=== PATIENT | male | born 1970 | race Caucasian/White ===

== ENCOUNTER 2022-04-20 14:17 | Emergency (ER) | payer MEDICAID, SELFPAY ==
[2022-04-20 14:31] VITALS: BP 130/89; PULSE 87; RESP 20; TEMP 36.3; O2SAT 96; BMI 87.2
--- NOTE | 2022-04-20 15:05 | CRLHL7_ITS ---
For Patients: As a result of the Century Cures Act, medical imaging exams and procedure reports are released immediately into your electronic medical record. You may view this report before your referring provider. If you have questions, please contact your health care provider. INDICATION: Fall. TECHNIQUE: CT head without contrast. COMPARISON: None. FINDINGS: CSF spaces: Within normal limits for age. Brain parenchyma and extra-axial spaces: The perez-white differentiation is normal. No sign of mass, hemorrhage, or midline shift. No extra-axial fluid collection. Skull base and calvarium: The visualized paranasal sinuses and mastoid air cells demonstrate no acute or significant findings. The visualized orbits are grossly unremarkable. No skull fractures. IMPRESSION: Unremarkable noncontrast head CT. Please note that all CT scans at this facility use dose modulation, iterative reconstruction, and/or weight-based dosing when appropriate to reduce radiation dose to as low as reasonably achievable. Dictated by Tejinder Johnson MD @ 04/20/2022 4:37:55 PM (Electronically Signed)
[2022-04-20 15:24] LABS: Appearance Urine Clear (Clear); Bilirubin Urine Negative (Negative); Blood Urine Trace-intact (Negative); Color Urine Yellow (Yellow); Glucose Urine Negative (Negative); Ketones Urine Negative (Negative); Leukocyte Esterase Urine Negative (Negative); Nitrite Urine Negative (Negative); Protein Urine 1+ (Negative); Specific Gravity Urine >= 1.030 (1.000-1.030); Urobilinogen Urine 0.2 (0.2-1.0); pH Urine 6.5 (5.0-8.5)
--- NOTE | 2022-04-20 15:27 | ED.GENADULT ---
HPI - General Adult General Chief complaint: Altered Mental Status Stated complaint: Syncope/Confused Time Seen by Provider: 04/20/22 14:31 Source: patient Mode of arrival: ambulatory Limitations: no limitations History of Present Illness HPI narrative: 51-year-old male coming in today concerned about changes in his mentation. He states that last night he woke up in the middle of the night he thought he was in a hotel. He did know where he was or what he was doing. He states that he was so scared and confused he just went back to bed and closes eyes and woke up in the morning. His significant other tells me that he has tossed and turned all night and he got up a few times as well. This morning he was at work he was using a weed with per when all of a sudden he did know where he was, who he was or who was around him. He believes this episode lasted about 20-25 minutes but he is unsure. He denies any recent fevers chills nausea or vomiting. He denies any sick contacts. No recent traveling. He denies changes in his vision or hearing. He denies seeing or hearing things that are not there. He states that he has a mild headache which is not unusual for him. He is not feel nauseated. He has a normal appetite. He has felt fine since the episode this morning which was several hours ago. He denies chest pain or shortness of breath. 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 Patient's significant other is quite concerned about the episode this morning and is requesting a ?brain scan?. He also has history of GERD, takes Zantac as needed. Related Data Home Medications Medication Instructions Recorded Confirmed ranitidine HCl .ROUTE 04/20/22 Allergies Allergy/AdvReac Type Severity Reaction Status Date / Time No Known Drug Allergies Allergy Verified 04/20/22 14:36 Review of Systems Status of ROS: Reports: 10 or more systems reviewed and unremarkable except as noted in History and below [facility] Social History Smoking Status: Current some day smoker What tobacco products do you use: cigarettes Do you use any of these nicotine containing products: None Second hand tobacco smoke exposure: No How often do you have a drink containing alcohol: monthly or less How many standard drinks containing alcohol do you have on a typical day: 1 or 2 How often do you have six or more drinks on one occasion: Never AUDIT-C Alcohol total score: 1 Non-prescribed substance use: marijuana (any form) service: No Exam Narrative: Exam Narrative: Overweight, well-developed patient in no acute distress. Alert and oriented. Answers questions appropriately. Mood and affect are appropriate. Thoughts are goal oriented and rational. No tangential or magical thinking noted. Patient speaks in full sentences without needing to catch their breath. Speech is not slurred or pressured. HEENT: Normocephalic atraumatic. Pupils are equally round reactive to light. Extraocular muscles are intact. Conjunctivae are moist without any icterus noted. Moist mucous membranes. Posterior pharynx is normal. Neck is soft without any lymphadenopathy or thyromegaly. No masses are appreciated. Cardiovascular: Heart is regular rate and rhythm S1 and S2 are present without any murmurs. Lungs: Clear to auscultation bilaterally no wheezes rhonchi or rales are appreciated. Patient takes deep breaths without any discomfort. Abdomen: Soft and nontender nondistended but is protuberant with normal bowel sounds. No guarding or rebound. No masses or organomegaly appreciated. Extremities: Bilateral lower extremities are without edema. Normal DP and PT pulses. Skin: Well perfused without any obvious rashes. Strength is 5/5 of the upper and lower extremities. Reflexes are 2+ and symmetric at the knees. Cranial nerves 3-12 are normal. [id number] is normal. There is no nystagmus either horizontally or vertically. Gait is normal. Const: Vital Signs, click to edit/add: Vital Signs - 24 hr 04/20/22 14:31 Temperature 97.4 F L Pulse Rate [Pulse Oximeter] 87 Respiratory Rate 20 Blood Pressure [Le ft Upper Arm] 130/89 Pulse Oximetry 96 Oxygen Delivery Me thod Room Air Course Course Hospital Course: Differential diagnosis includes seizure, stroke, meningitis, infection, substance use disorder, electrolyte abnormality, carbon monoxide poisoning, depression. We will proceed with head CT, lab work. Care will be transferred to oncoming physician. Vital Signs Vital signs: Initial Vital Signs Temperature 97.4 F L 04/20/22 14:31 Temperature Source Temporal Artery Scan 04/20/22 14:31 Pulse Rate 87 04/20/22 14:31 Respiratory Rate 20 04/20/22 14:31 Blood Pressure 130/89 04/20/22 14:31 Blood Pressure Mean 102 04/20/22 14:31 Blood Pressure Position Supine 04/20/22 14:31 Pulse Oximetry 96 04/20/22 14:31 Oxygen Delivery Method 04/20/22 14:31 Vital Signs Temperature 97.4 F L 04/20/22 14:31 Pulse Rate 87 04/20/22 14:31 Respiratory Rate 20 04/20/22 14:31 Blood Pressure 130/89 04/20/22 14:31 Pulse Oximetry 96 04/20/22 14:31 Oxygen Delivery Method 04/20/22 14:31 Temperature 97.4 F L 04/20/22 14:31 Pulse Rate 81 04/20/22 16:30 Respiratory Rate 18 04/20/22 16:00 Blood Pressure 134/92 H 04/20/22 16:30 Pulse Oximetry 98 04/20/22 16:30 Oxygen Delivery Method 04/20/22 16:30 Medical Decision Making Lab Data Labs: Lab Results 04/20/22 04/20/22 04/20/22 Range/Units 15:04 15:04 15:04 WBC (4.50-11.00) K/uL RBC (4.30-5.90) m/uL Hgb (13.5-17.5) gm/dL Hct (37.0-53.0) % MCV (80-100) fL MCH (26-34) pg MCHC (32-36) gm/dL RDW Coeff of Emma (11.5-15.5) % Plt Count (140-440) K/uL Neut % (Auto) (42.0-72.0) % Lymph % (Auto) (20-44) % [place] % (Auto) (0.0-11.0) % Eos % (Auto) (0.0-7.0) % Baso % (Auto) (0.0-3.0) % Neut # (Auto) (1.7-7.0) K/uL Lymph # (Auto) (0.90-2.90) K/uL [place] # (Auto) (0.00-0.90) K/UL Eos # (Auto) (0.00-0.50) K/uL Baso # (Auto) (0.00-0.30) K/uL Abs Immat Gran (auto) (0.00-0.30) K/uL ESR (2-15) mm/hr VBG pH (7.32-7.43) VBG pCO2 (40-50) mmHG VBG pO2 (25-47) mmHG VBG HCO3 (21-28) mmol/L Sodium (135-149) mmol/L Potassium (3.6-5.1) mmol/L Chloride (96-114) mmol/L Carbon Dioxide (20-32) mmol/L BUN (5-24) mg/dL Creatinine (0.5-1.5) mg/dL Estimated Creat Clear Estimated GFR ml/min Glucose (60-115) mg/dL Lactate (0.5-1.9) mmol/L Calcium (8.4-10.6) mg/dL Total Bilirubin (0.1-1.5) mg/dL Direct Bilirubin (0.0-0.5) mg/dL AST (12-35) U/L ALT (4-50) U/L Alkaline Phosphatase (40-150) U/L Ammonia (13.1-30.0) umol/L Troponin I (0.01-0.04) ng/mL C-Reactive Protein (0.5-1.0) mg/dL Total Protein (6.0-8.3) g/dL Albumin (3.3-5.0) g/dL TSH (0.270-4.20) uIU/mL Urine Color Yellow (Yellow) Urine Appearance Clear (Clear) Urine pH 6.5 (5.0-8.5) Ur Specific [place] >= 1.030 (1.000-1.030) Urine Protein 1+ A (Negative) Urine Glucose (UA) Negative (Negative) Urine Ketones Negative (Negative) Urine Blood Trace-intact A (Negative) Urine Nitrite Negative (Negative) Urine Bilirubin Negative (Negative) Urine Urobilinogen 0.2 (0.2-1.0) Ur Leukocyte Esterase Negative (Negative) Urine RBC 0-2 (0-2) Urine WBC 0-2 (0-5) Ur Squamous Epith Cells None (None-Few) Urine Bacteria None (None) Salicylates (1.0-10) mg/dL Urine Opiates Screen Negative (Negative) Ur Oxycodone Screen Negative (Negative) Urine Methadone Screen Negative (Negative) Ur Propoxyphene Screen Negative (Negative) Acetaminophen (10.0-30.0) ug/mL Ur Barbiturates Screen Negative (Negative) U Tricyclic Antidepress Negative (Negative) Ur Phencyclidine Scrn Negative (Negative) Ur Amphetamines Screen Negative (Negative) U Methamphetamines Scrn Negative (Negative) U Benzodiazepines Scrn Negative (Negative) Urine Cocaine Screen Negative (Negative) U Marijuana (THC) Screen POSITIVE A* (Negative) Ur Drug Screen Comment See Note Ethyl Alcohol (0.01-0.03) % SARS-CoV-2 (PCR) Negative SARS-CoV-2 (Negative) Influenza Type A (PCR) Negative PCR FLU A (Negative) Influenza Type B (PCR) Negative PCR FLU B (Negative) 04/20/22 04/20/22 04/20/22 Range/Units 15:25 15:25 15:25 WBC 10.19 (4.50-11.00) K/uL RBC 4.80 (4.30-5.90) m/uL Hgb 14.1 (13.5-17.5) gm/dL Hct 41.0 (37.0-53.0) % MCV 85 (80-100) fL MCH 29 (26-34) pg MCHC 34 (32-36) gm/dL RDW Coeff of Emma 12.7 (11.5-15.5) % Plt Count 295 (140-440) K/uL Neut % (Auto) 62.5 (42.0-72.0) % Lymph % (Auto) 19.8 L (20-44) % [place] % (Auto) 9.6 (0.0-11.0) % Eos % (Auto) 6.6 (0.0-7.0) % Baso % (Auto) 0.4 (0.0-3.0) % Neut # (Auto) 6.37 (1.7-7.0) K/uL Lymph # (Auto) 2.00 (0.90-2.90) K/uL [place] # (Auto) 1.00 H (0.00-0.90) K/UL Eos # (Auto) 0.67 H (0.00-0.50) K/uL Baso # (Auto) 0.04 (0.00-0.30) K/uL Abs Immat Gran (auto) 0.11 (0.00-0.30) K/uL ESR 11 (2-15) mm/hr VBG pH (7.32-7.43) VBG pCO2 (40-50) mmHG VBG pO2 (25-47) mmHG VBG HCO3 (21-28) mmol/L Sodium 136 (135-149) mmol/L Potassium 3.9 (3.6-5.1) mmol/L Chloride 101 (96-114) mmol/L Carbon Dioxide 26 (20-32) mmol/L BUN 16 (5-24) mg/dL Creatinine 0.9 (0.5-1.5) mg/dL Estimated Creat Clear 96.06 Estimated GFR 105 ml/min Glucose 170 H (60-115) mg/dL Lactate (0.5-1.9) mmol/L Calcium 9.1 (8.4-10.6) mg/dL Total Bilirubin 0.1 (0.1-1.5) mg/dL Direct Bilirubin 0.1 (0.0-0.5) mg/dL AST 41 H (12-35) U/L ALT 45 (4-50) U/L Alkaline Phosphatase 125 (40-150) U/L Ammonia (13.1-30.0) umol/L Troponin I < 0.01 L (0.01-0.04) ng/mL C-Reactive Protein 0.6 (0.5-1.0) mg/dL Total Protein 7.1 (6.0-8.3) g/dL Albumin 4.2 (3.3-5.0) g/dL TSH (0.270-4.20) uIU/mL Urine Color (Yellow) Urine Appearance (Clear) Urine pH (5.0-8.5) Ur Specific [place] (1.000-1.030) Urine Protein (Negative) Urine Glucose (UA) (Negative) Urine Ketones (Negative) Urine Blood (Negative) Urine Nitrite (Negative) Urine Bilirubin (Negative) Urine Urobilinogen (0.2-1.0) Ur Leukocyte Esterase (Negative) Urine RBC (0-2) Urine WBC (0-5) Ur Squamous Epith Cells (None-Few) Urine Bacteria (None) Salicylates < 1.0 L (1.0-10) mg/dL Urine Opiates Screen (Negative) Ur Oxycodone Screen (Negative) Urine Methadone Screen (Negative) Ur Propoxyphene Screen (Negative) Acetaminophen < 10.0 L (10.0-30.0) ug/mL Ur Barbiturates Screen (Negative) U Tricyclic Antidepress (Negative) Ur Phencyclidine Scrn (Negative) Ur Amphetamines Screen (Negative) U Methamphetamines Scrn (Negative) U Benzodiazepines Scrn (Negative) Urine Cocaine Screen (Negative) U Marijuana (THC) Screen (Negative) Ur Drug Screen Comment Ethyl Alcohol < 0.01 L (0.01-0.03) % SARS-CoV-2 (PCR) (Negative) Influenza Type A (PCR) (Negative) Influenza Type B (PCR) (Negative) 04/20/22 04/20/22 04/20/22 Range/Units 15:25 15:25 15:25 WBC (4.50-11.00) K/uL RBC (4.30-5.90) m/uL Hgb (13.5-17.5) gm/dL Hct (37.0-53.0) % MCV (80-100) fL MCH (26-34) pg MCHC (32-36) gm/dL RDW Coeff of Emma (11.5-15.5) % Plt Count (140-440) K/uL Neut % (Auto) (42.0-72.0) % Lymph % (Auto) (20-44) % [place] % (Auto) (0.0-11.0) % Eos % (Auto) (0.0-7.0) % Baso % (Auto) (0.0-3.0) % Neut # (Auto) (1.7-7.0) K/uL Lymph # (Auto) (0.90-2.90) K/uL [place] # (Auto) (0.00-0.90) K/UL Eos # (Auto) (0.00-0.50) K/uL Baso # (Auto) (0.00-0.30) K/uL Abs Immat Gran (auto) (0.00-0.30) K/uL ESR (2-15) mm/hr VBG pH 7.44 H (7.32-7.43) VBG pCO2 47 (40-50) mmHG VBG pO2 42.3 (25-47) mmHG VBG HCO3 32 H (21-28) mmol/L Sodium (135-149) mmol/L Potassium (3.6-5.1) mmol/L Chloride (96-114) mmol/L Carbon Dioxide (20-32) mmol/L BUN (5-24) mg/dL Creatinine (0.5-1.5) mg/dL Estimated Creat Clear Estimated GFR ml/min Glucose (60-115) mg/dL Lactate 1.5 (0.5-1.9) mmol/L Calcium (8.4-10.6) mg/dL Total Bilirubin (0.1-1.5) mg/dL Direct Bilirubin (0.0-0.5) mg/dL AST (12-35) U/L ALT (4-50) U/L Alkaline Phosphatase (40-150) U/L Ammonia (13.1-30.0) umol/L Troponin I (0.01-0.04) ng/mL C-Reactive Protein (0.5-1.0) mg/dL Total Protein (6.0-8.3) g/dL Albumin (3.3-5.0) g/dL TSH 1.550 (0.270-4.20) uIU/mL Urine Color (Yellow) Urine Appearance (Clear) Urine pH (5.0-8.5) Ur Specific [place] (1.000-1.030) Urine Protein (Negative) Urine Glucose (UA) (Negative) Urine Ketones (Negative) Urine Blood (Negative) Urine Nitrite (Negative) Urine Bilirubin (Negative) Urine Urobilinogen (0.2-1.0) Ur Leukocyte Esterase (Negative) Urine RBC (0-2) Urine WBC (0-5) Ur Squamous Epith Cells (None-Few) Urine Bacteria (None) Salicylates (1.0-10) mg/dL Urine Opiates Screen (Negative) Ur Oxycodone Screen (Negative) Urine Methadone Screen (Negative) Ur Propoxyphene Screen (Negative) Acetaminophen (10.0-30.0) ug/mL Ur Barbiturates Screen (Negative) U Tricyclic Antidepress (Negative) Ur Phencyclidine Scrn (Negative) Ur Amphetamines Screen (Negative) U Methamphetamines Scrn (Negative) U Benzodiazepines Scrn (Negative) Urine Cocaine Screen (Negative) U Marijuana (THC) Screen (Negative) Ur Drug Screen Comment Ethyl Alcohol (0.01-0.03) % SARS-CoV-2 (PCR) (Negative) Influenza Type A (PCR) (Negative) Influenza Type B (PCR) (Negative) 04/20/22 Range/Units 15:25 WBC (4.50-11.00) K/uL RBC (4.30-5.90) m/uL Hgb (13.5-17.5) gm/dL Hct (37.0-53.0) % MCV (80-100) fL MCH (26-34) pg MCHC (32-36) gm/dL RDW Coeff of Emma (11.5-15.5) % Plt Count (140-440) K/uL Neut % (Auto) (42.0-72.0) % Lymph % (Auto) (20-44) % [place] % (Auto) (0.0-11.0) % Eos % (Auto) (0.0-7.0) % Baso % (Auto) (0.0-3.0) % Neut # (Auto) (1.7-7.0) K/uL Lymph # (Auto) (0.90-2.90) K/uL [place] # (Auto) (0.00-0.90) K/UL Eos # (Auto) (0.00-0.50) K/uL Baso # (Auto) (0.00-0.30) K/uL Abs Immat Gran (auto) (0.00-0.30) K/uL ESR (2-15) mm/hr VBG pH (7.32-7.43) VBG pCO2 (40-50) mmHG VBG pO2 (25-47) mmHG VBG HCO3 (21-28) mmol/L Sodium (135-149) mmol/L Potassium (3.6-5.1) mmol/L Chloride (96-114) mmol/L Carbon Dioxide (20-32) mmol/L BUN (5-24) mg/dL Creatinine (0.5-1.5) mg/dL Estimated Creat Clear Estimated GFR ml/min Glucose (60-115) mg/dL Lactate (0.5-1.9) mmol/L Calcium (8.4-10.6) mg/dL Total Bilirubin (0.1-1.5) mg/dL Direct Bilirubin (0.0-0.5) mg/dL AST (12-35) U/L ALT (4-50) U/L Alkaline Phosphatase (40-150) U/L Ammonia 27.0 (13.1-30.0) umol/L Troponin I (0.01-0.04) ng/mL C-Reactive Protein (0.5-1.0) mg/dL Total Protein (6.0-8.3) g/dL Albumin (3.3-5.0) g/dL TSH (0.270-4.20) uIU/mL Urine Color (Yellow) Urine Appearance (Clear) Urine pH (5.0-8.5) Ur Specific [place] (1.000-1.030) Urine Protein (Negative) Urine Glucose (UA) (Negative) Urine Ketones (Negative) Urine Blood (Negative) Urine Nitrite (Negative) Urine Bilirubin (Negative) Urine Urobilinogen (0.2-1.0) Ur Leukocyte Esterase (Negative) Urine RBC (0-2) Urine WBC (0-5) Ur Squamous Epith Cells (None-Few) Urine Bacteria (None) Salicylates (1.0-10) mg/dL Urine Opiates Screen (Negative) Ur Oxycodone Screen (Negative) Urine Methadone Screen (Negative) Ur Propoxyphene Screen (Negative) Acetaminophen (10.0-30.0) ug/mL Ur Barbiturates Screen (Negative) U Tricyclic Antidepress (Negative) Ur Phencyclidine Scrn (Negative) Ur Amphetamines Screen (Negative) U Methamphetamines Scrn (Negative) U Benzodiazepines Scrn (Negative) Urine Cocaine Screen (Negative) U Marijuana (THC) Screen (Negative) Ur Drug Screen Comment Ethyl Alcohol (0.01-0.03) % SARS-CoV-2 (PCR) (Negative) Influenza Type A (PCR) (Negative) Influenza Type B (PCR) (Negative) ECG Data Attestation: I personally reviewed and interpreted this ECG as follows: (Normal sinus rhythm, heart rate 83) Discharge Plan Discharge Clinical Impression: Altered mental status Patient Disposition: Home, Self-Care Condition: Stable Instructions: Acute Delirium (ED) Additional Instructions: Follow-up with primary care to discuss neurology referal Monitor for additional symptoms. Activity Level: No Restrictions Discharge Diet: Regular Prescriptions: No Action ranitidine HCl [Zantac] .ROUTE Follow Up/Referrals: Provider,Not a Local [Primary Care Provider] - Stand Alone Forms: [employer] Info Instructions
[2022-04-20 15:30] VITALS: BP 133/56; PULSE 83; RESP 16; RESP 18; O2SAT 99
[2022-04-20 15:30] LABS: Amphetamine Screen Urine Negative (Negative); Barbiturate Screen Urine Negative (Negative); Benzodiazepines Screen Urine Negative (Negative); Cocaine Screen Urine Negative (Negative); Methadone Screen Urine Negative (Negative); Methamphetamines Screen Urine Negative (Negative); Opiate Screen Urine Negative (Negative); Oxycodone Screen Urine Negative (Negative); Phencyclidine Screen Urine Negative (Negative); Tricyclic Antidepressant Urine Negative (Negative)
[2022-04-20 15:41] LABS: Basophils Absolute Auto 0.04 K/uL (0.00-0.30); Basophils Percent Auto 0.4 % (0.0-3.0); Eosinophils Absolute Auto 0.67 K/uL (0.00-0.50); Eosinophils Percent Auto 6.6 % (0.0-7.0); Hemoglobin* 14.1 gm/dL (13.5-17.5); Immature Granulocytes Abs Auto 0.11 K/uL (0.00-0.30); Lymphocytes Percent Auto 19.8 % (20-44); Mean Corpuscular HGB Conc 34 gm/dL (32-36); Mean Corpuscular Hemoglobin 29 pg (26-34); Mean Corpuscular Volume 85 fL (80-100); Monocytes Percent Auto 9.6 % (0.0-11.0); Neutrophils Absolute Auto 6.37 K/uL (1.7-7.0); Neutrophils Percent Auto 62.5 % (42.0-72.0); Platelet Count* 295 K/uL (140-440); RDW Coefficient of Variation % 12.7 % (11.5-15.5); White Blood Count* 10.19 K/uL (4.50-11.00)
[2022-04-20 15:42] LABS: Slide Review Reflex No
[2022-04-20 15:45] LABS: Lactate* 1.5 mmol/L (0.5-1.9); PCO2 VBG 47 mmHG (40-50); PO2 VBG 42.3 mmHG (25-47); pH VBG 7.44 (7.32-7.43)
[2022-04-20 15:46] LABS: HCO3 VBG 32 mmol/L (21-28)
[2022-04-20 15:50] LABS: RBC Urine 0-2 (0-2); WBC Urine 0-2 (0-5)
[2022-04-20 16:00] VITALS: BP 139/88; PULSE 84; RESP 18; O2SAT 100
[2022-04-20 16:03] LABS: PCR FLU A Negative PCR FLU A (Negative); PCR FLU B Negative PCR FLU B (Negative)
[2022-04-20 16:06] LABS: Cannabinoid Screen Urine POSITIVE (Negative); SARS PCR* Negative SARS-CoV-2 (Negative)
[2022-04-20 16:11] LABS: Albumin* 4.2 g/dL (3.3-5.0); Chloride* 101 mmol/L (96-114); Sodium* 136 mmol/L (135-149)
[2022-04-20 16:13] LABS: Potassium* 3.9 mmol/L (3.6-5.1)
[2022-04-20 16:15] LABS: Alanine Aminotransferase* 45 U/L (4-50); Alkaline Phosphatase* 125 U/L (40-150); Aspartate Amino Transferase* 41 U/L (12-35); Bilirubin Direct* 0.1 mg/dL (0.0-0.5); Bilirubin Total* 0.1 mg/dL (0.1-1.5); Blood Urea Nitrogen* 16 mg/dL (5-24); Calcium* 9.1 mg/dL (8.4-10.6); Carbon Dioxide* 26 mmol/L (20-32); Creatinine* 0.9 mg/dL (0.5-1.5); Est. Creatinine Clearance* 96.06; Estimated Glomerular Filt Rate 105 ml/min; Glucose* 170 mg/dL (60-115); Total Protein* 7.1 g/dL (6.0-8.3)
[2022-04-20 16:17] LABS: Acetaminophen* < 10.0 ug/mL (10.0-30.0); Ethanol* < 0.01 % (0.01-0.03); Salicylate* < 1.0 mg/dL (1.0-10)
[2022-04-20 16:18] LABS: C Reactive Protein* 0.6 mg/dL (0.5-1.0)
[2022-04-20 16:30] VITALS: BP 134/92; PULSE 81; O2SAT 98
[2022-04-20 16:33] LABS: Troponin I* < 0.01 ng/mL (0.01-0.04)
--- NOTE | 2022-04-20 16:51 | ED.AMS ---
HPI - Altered Mental Status General Chief Complaint: Altered Mental Status Stated Complaint: Syncope/Confused Time Seen by Provider: 04/20/22 14:31 Source: patient Mode of arrival: ambulatory Limitations: no limitations History of Present Illness HPI narrative: Patient is a year old gentleman who works in [employer] He had episode earlier today of about 20 minutes of acute delirium. He did not know who or where he was. He had no focal defects. He had no fevers no chills no stiff neck. He has had no other major complaints and has made a full recovery. He states that this is not happen to him in the past. He was brought into the emergency room immediately his girlfriend. Related Data Home Medications Medication Instructions Recorded Confirmed ranitidine HCl .ROUTE 04/20/22 Allergies Allergy/AdvReac Type Severity Reaction Status Date / Time No Known Drug Allergies Allergy Verified 04/20/22 14:36 Review of Systems Status of ROS: Reports: 10 or more systems reviewed and unremarkable except as noted in History and below PFSH PFS Social History Smoking Status: Current some day smoker What tobacco products do you use: cigarettes Do you use any of these nicotine containing products: None Second hand tobacco smoke exposure: No How often do you have a drink containing alcohol: monthly or less How many standard drinks containing alcohol do you have on a typical day: 1 or 2 How often do you have six or more drinks on one occasion: Never AUDIT-C Alcohol total score: 1 Non-prescribed substance use: marijuana (any form) service: No Exam Narrative: Exam Narrative: EXAM GENERAL: Patient appears comfortable and well. EYES: No scleral icterus. ENT: Tympanic membranes and oropharynx normal. THYROID: no thyroid nodules or thyromegaly. LYMPH: No supraclavicular or cervical lymphadenopathy. SKIN: Visible skin seen during exam normal or with benign process only. EXT: No dependent lower extremity pedal edema. HEART: Regular rate and rhythm with no murmurs, rubs, or gallops. LUNGS: Clear to auscultation bilaterally with no crackles or wheezes. ABD: Soft, non tender, non distended. PSYCH: Good eye contact, speech is not pressured. Const: Vital Signs, click to edit/add: Vital Signs - 24 hr 04/20/22 14:31 04/20/22 15:30 Temperature 97.4 F L Pulse Rate [Pulse Oximeter] 87 83 Respiratory Rate 20 16 Blood Pressure [Le ft Upper Arm] 130/89 133/56 L Pulse Oximetry 96 99 Oxygen Delivery Me thod Room Air Room Air Course Course Hospital Course: Differential diagnosis includes seizure, stroke, meningitis, infection, substance use disorder, electrolyte abnormality, carbon monoxide poisoning, depression. We will proceed with head CT, lab work. Care will be transferred to oncoming physician. Vital Signs Vital signs: Initial Vital Signs Temperature 97.4 F L 04/20/22 14:31 Temperature Source Temporal Artery Scan 04/20/22 14:31 Pulse Rate 87 04/20/22 14:31 Respiratory Rate 20 04/20/22 14:31 Blood Pressure 130/89 04/20/22 14:31 Blood Pressure Mean 102 04/20/22 14:31 Blood Pressure Position Supine 04/20/22 14:31 Pulse Oximetry 96 04/20/22 14:31 Oxygen Delivery Method 04/20/22 14:31 Vital Signs Temperature 97.4 F L 04/20/22 14:31 Pulse Rate 87 04/20/22 14:31 Respiratory Rate 20 04/20/22 14:31 Blood Pressure 130/89 04/20/22 14:31 Pulse Oximetry 96 04/20/22 14:31 Oxygen Delivery Method 04/20/22 14:31 Temperature 97.4 F L 04/20/22 14:31 Pulse Rate 83 04/20/22 15:30 Respiratory Rate 16 04/20/22 15:30 Blood Pressure 133/56 L 04/20/22 15:30 Pulse Oximetry 99 04/20/22 15:30 Oxygen Delivery Method 04/20/22 15:30 MDM - Altered Mental Status MDM Narrative Medical decision making narrative: Review of laboratory studies is largely unremarkable with the exception of small amount of cannabis. He states he uses cannabis regularly at a low dose. The remainder of CBC metabolic panel and electrolytes are all normal. CT of the head is unremarkable. Patient has made a full recovery. He would like to go home. Differential would include encephalitis, toxic exposure, heat stroke and TIA. Lab Data Labs: Lab Results 04/20/22 04/20/22 04/20/22 Range/Units 15:04 15:04 15:04 WBC (4.50-11.00) K/uL RBC (4.30-5.90) m/uL Hgb (13.5-17.5) gm/dL Hct (37.0-53.0) % MCV (80-100) fL MCH (26-34) pg MCHC (32-36) gm/dL RDW Coeff of Emma (11.5-15.5) % Plt Count (140-440) K/uL Neut % (Auto) (42.0-72.0) % Lymph % (Auto) (20-44) % [place] % (Auto) (0.0-11.0) % Eos % (Auto) (0.0-7.0) % Baso % (Auto) (0.0-3.0) % Neut # (Auto) (1.7-7.0) K/uL Lymph # (Auto) (0.90-2.90) K/uL [place] # (Auto) (0.00-0.90) K/UL Eos # (Auto) (0.00-0.50) K/uL Baso # (Auto) (0.00-0.30) K/uL Abs Immat Gran (auto) (0.00-0.30) K/uL VBG pH (7.32-7.43) VBG pCO2 (40-50) mmHG VBG pO2 (25-47) mmHG VBG HCO3 (21-28) mmol/L Sodium (135-149) mmol/L Potassium (3.6-5.1) mmol/L Chloride (96-114) mmol/L Carbon Dioxide (20-32) mmol/L BUN (5-24) mg/dL Creatinine (0.5-1.5) mg/dL Estimated Creat Clear Estimated GFR ml/min Glucose (60-115) mg/dL Lactate (0.5-1.9) mmol/L Calcium (8.4-10.6) mg/dL Total Bilirubin (0.1-1.5) mg/dL Direct Bilirubin (0.0-0.5) mg/dL AST (12-35) U/L ALT (4-50) U/L Alkaline Phosphatase (40-150) U/L Ammonia (13.1-30.0) umol/L Troponin I (0.01-0.04) ng/mL C-Reactive Protein (0.5-1.0) mg/dL Total Protein (6.0-8.3) g/dL Albumin (3.3-5.0) g/dL Urine Color Yellow (Yellow) Urine Appearance Clear (Clear) Urine pH 6.5 (5.0-8.5) Ur Specific [place] >= 1.030 (1.000-1.030) Urine Protein 1+ A (Negative) Urine Glucose (UA) Negative (Negative) Urine Ketones Negative (Negative) Urine Blood Trace-intact A (Negative) Urine Nitrite Negative (Negative) Urine Bilirubin Negative (Negative) Urine Urobilinogen 0.2 (0.2-1.0) Ur Leukocyte Esterase Negative (Negative) Urine RBC 0-2 (0-2) Urine WBC 0-2 (0-5) Ur Squamous Epith Cells None (None-Few) Urine Bacteria None (None) Salicylates (1.0-10) mg/dL Urine Opiates Screen Negative (Negative) Ur Oxycodone Screen Negative (Negative) Urine Methadone Screen Negative (Negative) Ur Propoxyphene Screen Negative (Negative) Acetaminophen (10.0-30.0) ug/mL Ur Barbiturates Screen Negative (Negative) U Tricyclic Antidepress Negative (Negative) Ur Phencyclidine Scrn Negative (Negative) Ur Amphetamines Screen Negative (Negative) U Methamphetamines Scrn Negative (Negative) U Benzodiazepines Scrn Negative (Negative) Urine Cocaine Screen Negative (Negative) U Marijuana (THC) Screen POSITIVE A* (Negative) Ur Drug Screen Comment See Note Ethyl Alcohol (0.01-0.03) % SARS-CoV-2 (PCR) Negative SARS-CoV-2 (Negative) Influenza Type A (PCR) Negative PCR FLU A (Negative) Influenza Type B (PCR) Negative PCR FLU B (Negative) 04/20/22 04/20/22 04/20/22 Range/Units 15:25 15:25 15:25 WBC 10.19 (4.50-11.00) K/uL RBC 4.80 (4.30-5.90) m/uL Hgb 14.1 (13.5-17.5) gm/dL Hct 41.0 (37.0-53.0) % MCV 85 (80-100) fL MCH 29 (26-34) pg MCHC 34 (32-36) gm/dL RDW Coeff of Emma 12.7 (11.5-15.5) % Plt Count 295 (140-440) K/uL Neut % (Auto) 62.5 (42.0-72.0) % Lymph % (Auto) 19.8 L (20-44) % [place] % (Auto) 9.6 (0.0-11.0) % Eos % (Auto) 6.6 (0.0-7.0) % Baso % (Auto) 0.4 (0.0-3.0) % Neut # (Auto) 6.37 (1.7-7.0) K/uL Lymph # (Auto) 2.00 (0.90-2.90) K/uL [place] # (Auto) 1.00 H (0.00-0.90) K/UL Eos # (Auto) 0.67 H (0.00-0.50) K/uL Baso # (Auto) 0.04 (0.00-0.30) K/uL Abs Immat Gran (auto) 0.11 (0.00-0.30) K/uL VBG pH (7.32-7.43) VBG pCO2 (40-50) mmHG VBG pO2 (25-47) mmHG VBG HCO3 (21-28) mmol/L Sodium 136 (135-149) mmol/L Potassium 3.9 (3.6-5.1) mmol/L Chloride 101 (96-114) mmol/L Carbon Dioxide 26 (20-32) mmol/L BUN 16 (5-24) mg/dL Creatinine 0.9 (0.5-1.5) mg/dL Estimated Creat Clear 96.06 Estimated GFR 105 ml/min Glucose 170 H (60-115) mg/dL Lactate 1.5 (0.5-1.9) mmol/L Calcium 9.1 (8.4-10.6) mg/dL Total Bilirubin 0.1 (0.1-1.5) mg/dL Direct Bilirubin 0.1 (0.0-0.5) mg/dL AST 41 H (12-35) U/L ALT 45 (4-50) U/L Alkaline Phosphatase 125 (40-150) U/L Ammonia (13.1-30.0) umol/L Troponin I < 0.01 L (0.01-0.04) ng/mL C-Reactive Protein 0.6 (0.5-1.0) mg/dL Total Protein 7.1 (6.0-8.3) g/dL Albumin 4.2 (3.3-5.0) g/dL Urine Color (Yellow) Urine Appearance (Clear) Urine pH (5.0-8.5) Ur Specific [place] (1.000-1.030) Urine Protein (Negative) Urine Glucose (UA) (Negative) Urine Ketones (Negative) Urine Blood (Negative) Urine Nitrite (Negative) Urine Bilirubin (Negative) Urine Urobilinogen (0.2-1.0) Ur Leukocyte Esterase (Negative) Urine RBC (0-2) Urine WBC (0-5) Ur Squamous Epith Cells (None-Few) Urine Bacteria (None) Salicylates < 1.0 L (1.0-10) mg/dL Urine Opiates Screen (Negative) Ur Oxycodone Screen (Negative) Urine Methadone Screen (Negative) Ur Propoxyphene Screen (Negative) Acetaminophen < 10.0 L (10.0-30.0) ug/mL Ur Barbiturates Screen (Negative) U Tricyclic Antidepress (Negative) Ur Phencyclidine Scrn (Negative) Ur Amphetamines Screen (Negative) U Methamphetamines Scrn (Negative) U Benzodiazepines Scrn (Negative) Urine Cocaine Screen (Negative) U Marijuana (THC) Screen (Negative) Ur Drug Screen Comment Ethyl Alcohol < 0.01 L (0.01-0.03) % SARS-CoV-2 (PCR) (Negative) Influenza Type A (PCR) (Negative) Influenza Type B (PCR) (Negative) 04/20/22 04/20/22 Range/Units 15:25 15:25 WBC (4.50-11.00) K/uL RBC (4.30-5.90) m/uL Hgb (13.5-17.5) gm/dL Hct (37.0-53.0) % MCV (80-100) fL MCH (26-34) pg MCHC (32-36) gm/dL RDW Coeff of Emma (11.5-15.5) % Plt Count (140-440) K/uL Neut % (Auto) (42.0-72.0) % Lymph % (Auto) (20-44) % [place] % (Auto) (0.0-11.0) % Eos % (Auto) (0.0-7.0) % Baso % (Auto) (0.0-3.0) % Neut # (Auto) (1.7-7.0) K/uL Lymph # (Auto) (0.90-2.90) K/uL [place] # (Auto) (0.00-0.90) K/UL Eos # (Auto) (0.00-0.50) K/uL Baso # (Auto) (0.00-0.30) K/uL Abs Immat Gran (auto) (0.00-0.30) K/uL VBG pH 7.44 H (7.32-7.43) VBG pCO2 47 (40-50) mmHG VBG pO2 42.3 (25-47) mmHG VBG HCO3 32 H (21-28) mmol/L Sodium (135-149) mmol/L Potassium (3.6-5.1) mmol/L Chloride (96-114) mmol/L Carbon Dioxide (20-32) mmol/L BUN (5-24) mg/dL Creatinine (0.5-1.5) mg/dL Estimated Creat Clear Estimated GFR ml/min Glucose (60-115) mg/dL Lactate (0.5-1.9) mmol/L Calcium (8.4-10.6) mg/dL Total Bilirubin (0.1-1.5) mg/dL Direct Bilirubin (0.0-0.5) mg/dL AST (12-35) U/L ALT (4-50) U/L Alkaline Phosphatase (40-150) U/L Ammonia 27.0 (13.1-30.0) umol/L Troponin I (0.01-0.04) ng/mL C-Reactive Protein (0.5-1.0) mg/dL Total Protein (6.0-8.3) g/dL Albumin (3.3-5.0) g/dL Urine Color (Yellow) Urine Appearance (Clear) Urine pH (5.0-8.5) Ur Specific [place] (1.000-1.030) Urine Protein (Negative) Urine Glucose (UA) (Negative) Urine Ketones (Negative) Urine Blood (Negative) Urine Nitrite (Negative) Urine Bilirubin (Negative) Urine Urobilinogen (0.2-1.0) Ur Leukocyte Esterase (Negative) Urine RBC (0-2) Urine WBC (0-5) Ur Squamous Epith Cells (None-Few) Urine Bacteria (None) Salicylates (1.0-10) mg/dL Urine Opiates Screen (Negative) Ur Oxycodone Screen (Negative) Urine Methadone Screen (Negative) Ur Propoxyphene Screen (Negative) Acetaminophen (10.0-30.0) ug/mL Ur Barbiturates Screen (Negative) U Tricyclic Antidepress (Negative) Ur Phencyclidine Scrn (Negative) Ur Amphetamines Screen (Negative) U Methamphetamines Scrn (Negative) U Benzodiazepines Scrn (Negative) Urine Cocaine Screen (Negative) U Marijuana (THC) Screen (Negative) Ur Drug Screen Comment Ethyl Alcohol (0.01-0.03) % SARS-CoV-2 (PCR) (Negative) Influenza Type A (PCR) (Negative) Influenza Type B (PCR) (Negative) Discharge Plan Discharge Clinical Impression: Altered mental status Patient Disposition: Home, Self-Care Condition: Stable Instructions: Acute Delirium (ED) Additional Instructions: Follow-up with primary care to discuss neurology referal Monitor for additional symptoms. Activity Level: No Restrictions Discharge Diet: Regular Prescriptions: No Action ranitidine HCl [Zantac] .ROUTE Follow Up/Referrals: Provider,Not a Local [Primary Care Provider] - Stand Alone Forms: [facility] Medical Info Instructions
[2022-04-20 16:53] LABS: Erythrocyte SedimentationRate* 11 mm/hr (2-15)
== END 2022-04-20 17:05 | disposition home or self-care (01) ==
PROVIDERS: Family Medicine; Emergency Provider Internal Medicine
DX: R41.82 Altered mental status, unspecified (principal)
CPT/HCPCS: 36415; 70450; 80048; 80076; 80143; 80179; 80306; 81001; 82077; 82140; 82803; 83605; 84443; 84484; 85025; 85651; 86140; 87086; 87502; 87635; 93005; 99283; 99284; 99285

== ENCOUNTER 2022-04-28 12:54 | Emergency (ER) | payer MEDICAID, SELFPAY ==
[2022-04-28 13:22] VITALS: BP 134/82; PULSE 82; RESP 18; TEMP 36.8; O2SAT 96; BMI 35.0
--- NOTE | 2022-04-28 16:50 | ED_ITS ---
HPI - General Adult General Date Seen: 04/28/22 Chief complaint: Laceration/Wound Stated complaint: Lac bottom left foot Time Seen by Provider: 04/28/22 12:59 Source: patient History of Present Illness HPI narrative: Patient is a 51-year-old male who presents with 2 weeks of worsening pain, itching and redness of his feet. He has a crack type laceration on the bottom of his left foot. He works in [employer]. Today he was not able to work because the pain was too severe. He has not taken anything for pain. He has not had any swelling or fevers. He does not have diabetes. [facility] has a [facility] but says it is very hard to get in to see her. He denies any medical problems that he knows of. He does not smoke or drink. Related Data Home Medications Medication Instructions Recorded Confirmed ranitidine HCl .ROUTE 04/20/22 Previous Rx's Medication Instructions Recorded fluconazole 150 mg tablet 150 mg PO QWEEK #3 tabs 04/28/22 (Diflucan) Allergies Allergy/AdvReac Type Severity Reaction Status Date / Time No Known Drug Allergies Allergy Verified 04/20/22 14:36 Review of Systems Narrative: Review of systems otherwise noncontributory [facility] Social History Smoking Status: Current some day smoker What tobacco products do you use: cigarettes Do you use any of these nicotine containing products: None Second hand tobacco smoke exposure: No How often do you have a drink containing alcohol: monthly or less How many standard drinks containing alcohol do you have on a typical day: 1 or 2 How often do you have six or more drinks on one occasion: Never AUDIT-C Alcohol total score: 1 Non-prescribed substance use: marijuana (any form) service: No Exam Narrative: Exam Narrative: Vital signs reviewed In general, an alert, nontoxic male. Head: Normocephalic, atraumatic. ENT: Mucous membranes are moist. Musculoskeletal: Examination of bilateral feet shows erythema and scaly skin on bilateral plantar surfaces in between his toes. He has onchomycosis noted particularly of the left great toenail. On the plantar surface of his left foot near the MTP joint, he has a crack in the surface of the skin. There is no evidence of infection here. He has tenderness in this area. He has generally areas of callus noted. Pulses are intact. Skin is well perfused. Skin: Warm dry otherwise well perfused. Capillary refill is brisk. Const: Vital Signs, click to edit/add: Vital Signs - 24 hr 04/28/22 13:22 Temperature 98.2 F Pulse Rate [Right Pulse Oximeter] 82 Respiratory Rate 18 Blood Pressure [Ri ght Upper Arm] 134/82 Pulse Oximetry 96 Oxygen Delivery Me thod Room Air Documenting provider has reviewed patient's vital signs: yes Course Course Hospital Course: Overall, I think he has extensive tinea pedis and a crack in an area of callus on the left foot better contributing to his symptoms. I do not think this likely represents neuropathy given the skin changes I see. He does not have any evidence of vasculopathy on exam today. I have recommended that we treat him with a few weeks of Diflucan weekly. We dressed the wound on the bottom of his left foot. I gave him a note for work today but he says he will need to go back to work tomorrow for financial reasons. I have recommended that he follow-up with Dr. Douglas in Podiatry to ensure that this is all healing well. Return for any signs of worsening infection, particularly of the wound in his left foot . Dressing changes b.i.d. to that area until healed. Vital Signs Vital signs: Initial Vital Signs Temperature 98.2 F 04/28/22 13:22 Temperature Source Temporal Artery Scan 04/28/22 13:22 Pulse Rate 82 04/28/22 13:22 Respiratory Rate 18 04/28/22 13:22 Blood Pressure 134/82 04/28/22 13:22 Blood Pressure Mean 99 04/28/22 13:22 Blood Pressure Position Sitting 04/28/22 13:22 Pulse Oximetry 96 04/28/22 13:22 Oxygen Delivery Method 04/28/22 13:22 Vital Signs Temperature 98.2 F 04/28/22 13:22 Pulse Rate 82 04/28/22 13:22 Respiratory Rate 18 04/28/22 13:22 Blood Pressure 134/82 04/28/22 13:22 Pulse Oximetry 96 04/28/22 13:22 Oxygen Delivery Method 04/28/22 13:22 Temperature 98.2 F 04/28/22 13:22 Pulse Rate 82 04/28/22 13:22 Respiratory Rate 18 04/28/22 13:22 Blood Pressure 134/82 04/28/22 13:22 Pulse Oximetry 96 04/28/22 13:22 Oxygen Delivery Method 04/28/22 13:22 Discharge Plan Discharge Clinical Impression: Tinea pedis Patient Disposition: Home, Self-Care Condition: Stable Instructions: Athlete's Foot (ED) Additional Instructions: Take Diflucan once weekly for 3 weeks as prescribed. Change the dressing on the crack in your left foot twice a day as discussed. This may take a couple of weeks to heal. Ibuprofen as needed for pain. Recommend podiatry follow-up, this can be done through the [facility], Dr. Douglas. [phone]. Prescriptions: New fluconazole [Diflucan] 150 mg tablet 150 mg PO QWEEK Qty: 3 0RF No Action ranitidine HCl [Zantac] .ROUTE Follow Up/Referrals: Provider,Not a Local [Primary Care Provider] - Stand Alone Forms: [facility] Info Instructions
== END 2022-04-28 14:28 | disposition home or self-care (01) ==
LOC: ED 14:04
PROVIDERS: Emergency Provider Emergency Medicine
DX: B35.3 Tinea pedis (principal)
CPT/HCPCS: 99283; 99284

== ENCOUNTER 2022-06-21 07:49 | Emergency (ER) | payer MEDICAID, SELFPAY ==
[2022-06-21] VITALS (12 sets, daily range): BP systolic 114–128; BP diastolic 62–80; PULSE 79–91; RESP 18; TEMP 36.8; O2SAT 95–98; BMI 31.8
--- NOTE | 2022-06-21 09:04 | CRLHL7_ITS ---
For Patients: As a result of the 21st Century Cures Act, medical imaging exams and procedure reports are released immediately into your electronic medical record. You may view this report before your referring provider. If you have questions, please contact your health care provider. Indication: Abdominal pain, severe Technique: Contrast enhanced CT of the abdomen and pelvis, Omnipaque 350, 100 cc IV Please note that all CT scans at this facility use dose modulation, iterative reconstruction, and/or weight-based dosing when appropriate to reduce radiation dose to as low as reasonably achievable. Comparison: None Findings: Unremarkable inferior thorax. Normal liver size and contour. Hepatic steatosis. No suspicious hepatic lesions. Hepatic veins and portal veins appear patent. Status post cholecystectomy. No biliary dilatation. No significant abnormality of the adrenal glands, kidneys, spleen, pancreas, stomach or duodenum. Normal course and caliber of the abdominal aorta and the IVC. Aortic side branches and renal veins appear patent. No lymphadenopathy. No bladder wall thickening. Suggestion of soft tissue within the bladder (series 5 image 72) located just posterior to the median lobe of the prostate (series 4 image 64; series 2, image 135). Prostatic calcifications. No bowel obstruction or bowel wall thickening. Normal appendix. No significant free fluid. No aggressive osseous lesion. Impression: 1. No acute etiology identified for patient`s abdominal pain. 2. Abnormal soft tissue in the bladder which appears to be separate and posterior to the median lobe of the prostate. Recommend direct visualization to exclude malignancy. Please note that all CT scans at this facility use dose modulation, iterative reconstruction, and/or weight-based dosing when appropriate to reduce radiation dose to as low as reasonably achievable. Dictated by Wilder Sky MD @ 06/21/2022 10:03:45 AM (Electronically Signed)
--- NOTE | 2022-06-21 09:08 | CRLHL7_ITS ---
For Patients: As a result of the Century Cures Act, medical imaging exams and procedure reports are released immediately into your electronic medical record. You may view this report before your referring provider. If you have questions, please contact your health care provider. INDICATION: Pain, recurrent swelling. COMPARISON: None. TECHNIQUE: three-view radiograph of the right knee. FINDINGS: Large joint effusion. Normal alignment. Joint spaces preserved. No definite fracture. IMPRESSION: Large joint effusion without definite underlying fracture. Dictated by Wilder Sky MD @ 06/21/2022 9:55:14 AM (Electronically Signed)
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
[2022-06-21 09:22] LABS: Appearance Urine Clear (Clear); Bilirubin Urine Negative (Negative); Blood Urine Trace-intact (Negative); Color Urine Yellow (Yellow); Glucose Urine Negative (Negative); Ketones Urine Negative (Negative); Leukocyte Esterase Urine Negative (Negative); Nitrite Urine Negative (Negative); Protein Urine 2+ (Negative); Specific Gravity Urine >= 1.030 (1.000-1.030); Urobilinogen Urine 0.2 (0.2-1.0); pH Urine 5.5 (5.0-8.5)
[2022-06-21 09:42] LABS: Bacteria Urine Few; RBC Urine 0-2 (0-2); Squamous Epithelial Cell Urine Few (None-Few); WBC Urine 0-2 (0-5)
[2022-06-21] MEDS: KETOROLAC 30 MG/ML inj IVP (09:47)
[2022-06-21] MEDS: 0.9 % SODIUM CHLORIDE 1000 ml 1,000 ML IV (09:47)
[2022-06-21 09:49] LABS: Albumin* 4.5 g/dL (3.3-5.0); Chloride* 103 mmol/L (96-114)
[2022-06-21 09:50] LABS: Potassium* 4.3 mmol/L (3.6-5.1); Sodium* 136 mmol/L (135-149)
[2022-06-21 09:52] LABS: Est. Creatinine Clearance* 86.45; Estimated Glomerular Filt Rate 92 ml/min
[2022-06-21 09:53] LABS: Alanine Aminotransferase* 44 U/L (4-50); Alkaline Phosphatase* 138 U/L (40-150); Aspartate Amino Transferase* 32 U/L (12-35); Bilirubin Direct* 0.1 mg/dL (0.0-0.5); Bilirubin Total* 0.4 mg/dL (0.1-1.5); Blood Urea Nitrogen* 15 mg/dL (5-24); Carbon Dioxide* 24 mmol/L (20-32); Glucose* 198 mg/dL (60-115); Lipase* 207 U/L (23-300); Partial Thromboplastin Time* 26 Seconds (23-33); Total Protein* 7.2 g/dL (6.0-8.3)
[2022-06-21 09:54] LABS: Basophils Absolute Auto 0.04 K/uL (0.00-0.30); Basophils Percent Auto 0.5 % (0.0-3.0); Eosinophils Percent Auto 8.1 % (0.0-7.0); Hematocrit 40.3 % (37.0-53.0); Hemoglobin* 13.7 gm/dL (13.5-17.5); Immature Granulocytes Abs Auto 0.05 K/uL (0.00-0.30); Lymphocytes Absolute Auto 1.82 K/uL (0.90-2.90); Lymphocytes Percent Auto 21.4 % (20-44); Mean Corpuscular HGB Conc 34 gm/dL (32-36); Mean Corpuscular Hemoglobin 29 pg (26-34); Mean Corpuscular Volume 86 fL (80-100); Monocytes Percent Auto 8.2 % (0.0-11.0); Neutrophils Absolute Auto 5.22 K/uL (1.7-7.0); Neutrophils Percent Auto 61.2 % (42.0-72.0); Platelet Count* 302 K/uL (140-440); RDW Coefficient of Variation % 12.5 % (11.5-15.5); Red Blood Count 4.67 m/uL (4.30-5.90); White Blood Count* 8.52 K/uL (4.50-11.00)
[2022-06-21 09:56] LABS: C Reactive Protein* 1.3 mg/dL (0.5-1.0)
[2022-06-21 10:00] LABS: Ethanol* < 0.01 % (0.01-0.03); Salicylate* < 1.0 mg/dL (1.0-10); Slide Review Reflex No
[2022-06-21] MEDS: ONDANSETRON 2 MG/ML inj 4 MG IVP (10:20)
--- NOTE | 2022-06-21 12:20 | ED.NURSE ---
22 knee immobilizer applied to pt R knee. Pt instructed on application of immobilizer. Pt removed immobilizer for now, states he will apply immobilizer at home.
[2022-06-21 12:51] LABS: Magnesium* 2.1 mg/dL (1.5-2.6)
== END 2022-06-21 12:46 | disposition home or self-care (01) ==
PROVIDERS: Emergency Provider Family Medicine
DX: R10.9 Unspecified abdominal pain (principal); M25.561 Pain in right knee; M25.461 Effusion, right knee; R19.09 Other intra-abdominal and pelvic swelling, mass and lump
CPT/HCPCS: 36415; 73562; 74177; 80048; 80076; 80179; 81001; 82077; 83690; 83735; 84439; 84481; 85025; 85730; 86140; 87086; 94761; 96374; 96375; 99284; J1885; J2405; J7030; Q9967

== ENCOUNTER 2022-07-06 09:43 | Emergency (ER) | payer MEDICAID, SELFPAY ==
[2022-07-06 09:52] VITALS: BP 118/75; PULSE 88; RESP 18; TEMP 36.8; BMI 29.6
--- NOTE | 2022-07-06 10:49 | ED_ITS ---
HPI - Extremity Injury (Lower) General Time Seen by Provider: 10:50 Date Seen: 07/06/22 Chief Complaint: Lower Extremity Swelling Stated Complaint: Right knee pain Time Seen by Provider: 07/06/22 10:49 Source: patient and RN notes reviewed Mode of arrival: ambulatory Limitations: no limitations History of Present Illness HPI Narrative: Patient is a 51-year-old male coming back in with increased knee pain. He was seen on June 21, had x-ray showing a large knee effusion. He was given immobilizer for his knee but states it made his leg cramp up and he has not been able to use it. He was given naproxen and Vicodin. He states he called the orthopedist but they have not called back yet. Last night when he was standing at the sink doing dishes, he twisted his knee. It sounds as if he feels like it is unstable and could buckle. He feels like the leg was actually more swollen before. Related Data Home Medications Medication Instructions Recorded Confirmed ranitidine HCl .ROUTE 04/20/22 Previous Rx's Medication Instructions Recorded fluconazole 150 mg tablet 150 mg PO QWEEK #3 tabs 04/28/22 (Diflucan) hydrocodone 5 mg-acetaminophen 300 1 - 2 tab PO Q8H PRN severe pain 06/21/22 mg tablet #15 tabs magnesium citrate,mag oxide 250 mg 250 mg PO BID-TID muscle cramps 06/21/22 capsule #90 caps naproxen sodium 220 mg tablet 220 - 440 mg PO BID PRN pain #30 06/21/22 tabs Allergies Allergy/AdvReac Type Severity Reaction Status Date / Time No Known Drug Allergies Allergy Verified 07/06/22 10:13 Review of Systems Narrative: As per HPI PFSH PFS Social History Smoking Status: Current some day smoker What tobacco products do you use: cigarettes Do you use any of these nicotine containing products: None Second hand tobacco smoke exposure: No How often do you have a drink containing alcohol: monthly or less How many standard drinks containing alcohol do you have on a typical day: 1 or 2 How often do you have six or more drinks on one occasion: Never AUDIT-C Alcohol total score: 1 Non-prescribed substance use: marijuana (any form) service: No Exam Const: Vital Signs, click to edit/add: Vital Signs - 24 hr 07/06/22 09:52 07/06/22 11:27 Temperature 98.3 F Pulse Rate [Right Pulse Oximeter] 88 80 Respiratory Rate 18 Blood Pressure [Ri ght Forearm] 147/83 H Blood Pressure [Ri ght Upper Arm] 118/75 Pulse Oximetry 98 Oxygen Delivery Me thod Room Air Room Air Documenting provider has reviewed patient's vital signs: yes Common normals: no apparent distress, oriented x3, no limitations, healthy appearing and alert General appearance: cooperative and comfortable Other: Patient is quite dramatic about my examination of his leg. He certainly is pleasant but most definitely dramatic. If I touch him anywhere in the leg or the knee he moans in pain. Superiorly over the knee, over the patella over the joint line below the knee through the leg, anywhere touch she moans in pain. I am unable to examine him with any degree of reassurance on anything. He states any range of motion is extremely painful. Does seem to have a joint effusion and does have some lower extremity edema. There is no overlying skin changes. No open wounds. He comes in with out the knee immobilizer on. Neuro: Common normals: oriented x3 Sensorium/orientation: alert Course Course Hospital Course: Will give this patient 30 mg IM Toradol. I did look on [place] prescribing website in the only narcotic he has gotten is the 15 pills of Vicodin on June 21. Will reimage his right knee, obtain ultrasound of his right lower extremity. I am unclear as to the initial mechanism of his difficulty with his knee. He will most definitely need orthopedic follow-up and may get this arranged for him prior to discharge. Reevaluation(s) Reevaluation #1: Have reviewed with patient that his x-rays to showing the joint effusion, ultrasound is negative. He does want to return to work but needs a note to be off today. Reviewed with him that he needs to wear the knee immobilizer work. We will get him crutches. If he can work with a knee immobilizer and crutches he is welcome to do so. It is imperative that he get follow up with Orthopedics. I have reviewed with him that I am suspicious that there is something happening within the knee like a meniscus tear. On further questioning he is able to tell me that the knee does feel unstable at times. I have personally called to get his orthopedic appointment scheduled so that this will happen. Time: 12:10 Vital Signs Vital signs: Initial Vital Signs Temperature 98.3 F 07/06/22 09:52 Temperature Source Temporal Artery Scan 07/06/22 09:52 Pulse Rate 88 07/06/22 09:52 Respiratory Rate 18 07/06/22 09:52 Blood Pressure 118/75 07/06/22 09:52 Blood Pressure Mean 89 07/06/22 09:52 Blood Pressure Position Sitting 07/06/22 09:52 Oxygen Delivery Method 07/06/22 09:52 Vital Signs Temperature 98.3 F 07/06/22 09:52 Pulse Rate 88 07/06/22 09:52 Respiratory Rate 18 07/06/22 09:52 Blood Pressure 118/75 07/06/22 09:52 Oxygen Delivery Method 07/06/22 09:52 Temperature 98.3 F 07/06/22 09:52 Pulse Rate 80 07/06/22 11:27 Respiratory Rate 18 07/06/22 09:52 Blood Pressure 147/83 H 07/06/22 11:27 Pulse Oximetry 98 07/06/22 11:27 Oxygen Delivery Method 07/06/22 11:27 MDM - Extremity Injury (Lower) Imaging Data X-ray right knee: Attestation: I have reviewed the pertinent imaging results. My impression: I do see fluid but no acute fracture on my preliminary read. Radiologist's impression: Patient: [facility] Facility:?[facility] [place] Patient ID:?[id number] Site Patient ID:?[id number]. Site :?[id number] Study:?XRay Knee Right 2 VIEW-07/06/2022 11:25:10 AM Ordering Physician:?Sarah Coles Final Report: Indication: INC PAIN, TWISTED AGAIN Technique: Right knee 2 views Comparison: 06/21/2022 Findings: Spurring at the quadriceps tendon insertion to the superior patella. Small joint effusion. Mild chronic hypertrophic changes at the anterior tibial apophysis. No fracture. Impression: No sign of acute injury. Dictated by Dawson Justice MD @ 07/06/2022 11:39:10 AM (Electronic Signature) Venous US: Attestation: I have reviewed the pertinent imaging results. Radiologist's impression: Patient: [facility] Facility:?[facility] [place] Patient ID:?[id number] Site Patient ID:?[id number]. Site :?[id number] Study:?US Extremity Right -07/06/2022 11:52:53 AM Ordering Physician:Sandro Coles Final Report: INDICATION: RLE swelling and pain COMPARISON: None. TECHNIQUE: A compression venous ultrasound exam was performed of the right lower extremity using perez-scale imaging, color Doppler and spectral Doppler analysis. FINDINGS: Sonographic imaging of the right lower extremity demonstrates normal compressibility and color Doppler venous blood flow within the common femoral vein, deep femoral vein, and the proximal greater saphenous vein. Within the thigh, the femoral vein is patent and compressible. At a lower level, the popliteal and posterior tibial veins also show normal compressibility and color Doppler venous blood flow. Limited imaging of the contralateral groin demonstrates a normal spectral waveform and color Doppler venous blood flow within the left common femoral vein. IMPRESSION: Normal venous ultrasound exam. No evidence of deep vein thrombosis within the right lower extremity. Dictated by Dawson Justice MD @ 07/06/2022 11:55:07 AM (Electronic Signature) Critical Care Time Critical Care Time Critical Care Time: No Discharge Plan Discharge Clinical Impression: Knee pain, right Patient Disposition: Home, Self-Care Condition: Stable Instructions: Knee Pain (ED) Additional Instructions: Need to wear the knee immobilizer when your up to help protect your leg, this will provide stability. Use crutches as needed for weight-bearing. You have an orthopedic appointment at the orthopedic clinic on Wednesday of this week, , time at 1:40 p.m.. This is at the [facility] here in [facility] across from [facility]. Activity Level: Activity as Tolerated Activity Detail: With use of knee immobilizer and crutches. Prescriptions: No Action ranitidine HCl [Zantac] .ROUTE fluconazole [Diflucan] 150 mg tablet 150 mg PO QWEEK Qty: 3 0RF naproxen sodium 220 mg tablet 220 - 440 mg PO BID PRN (Reason: pain) Qty: 30 0RF hydrocodone-acetaminophen 5-300 mg tablet 1 - 2 tab PO Q8H PRN (Reason: severe pain ) Qty: 15 0RF magnesium citrate,mag oxide 250 mg capsule 250 mg PO BID-TID Qty: 90 0RF Follow Up/Referrals: Provider,Not a Local [Primary Care Provider] - Stand Alone Forms: [employer] Info Instructions
--- NOTE | 2022-07-06 10:59 | CRLHL7_ITS ---
For Patients: As a result of the Century Cures Act, medical imaging exams and procedure reports are released immediately into your electronic medical record. You may view this report before your referring provider. If you have questions, please contact your health care provider. INDICATION: RLE swelling and pain COMPARISON: None. TECHNIQUE: A compression venous ultrasound exam was performed of the right lower extremity using perez-scale imaging, color Doppler and spectral Doppler analysis. FINDINGS: Sonographic imaging of the right lower extremity demonstrates normal compressibility and color Doppler venous blood flow within the common femoral vein, deep femoral vein, and the proximal greater saphenous vein. Within the thigh, the femoral vein is patent and compressible. At a lower level, the popliteal and posterior tibial veins also show normal compressibility and color Doppler venous blood flow. Limited imaging of the contralateral groin demonstrates a normal spectral waveform and color Doppler venous blood flow within the left common femoral vein. IMPRESSION: Normal venous ultrasound exam. No evidence of deep vein thrombosis within the right lower extremity. Dictated by Dawson Justice MD @ 07/06/2022 11:55:07 AM (Electronically Signed)
--- NOTE | 2022-07-06 10:59 | CRLHL7_ITS ---
For Patients: As a result of the Cures Act, medical imaging exams and procedure reports are released immediately into your electronic medical record. You may view this report before your referring provider. If you have questions, please contact your health care provider. Indication: INC PAIN, TWISTED AGAIN Technique: Right knee 2 views Comparison: 06/21/2022 Findings: Spurring at the quadriceps tendon insertion to the superior patella. Small joint effusion. Mild chronic hypertrophic changes at the anterior tibial apophysis. No fracture. Impression: No sign of acute injury. Dictated by Dawson Justice MD @ 07/06/2022 11:39:10 AM (Electronically Signed)
[2022-07-06] MEDS: KETOROLAC 30 MG/ML inj IM (11:25)
[2022-07-06 11:27] VITALS: BP 147/83; PULSE 80; O2SAT 98
--- NOTE | 2022-07-06 12:34 | ED.NURSE ---
Patient received crutches. He reported that he already had a knee immobilizer and would wear the one he has.
== END 2022-07-06 12:37 | disposition home or self-care (01) ==
PROVIDERS: Emergency Provider Family Medicine
DX: M25.461 Effusion, right knee (principal); R26.2 Difficulty in walking, not elsewhere classified
CPT/HCPCS: 73560; 93971; 96372; 99283; 99284; J1885

== ENCOUNTER 2022-10-22 21:03 | Emergency (ER) | payer MEDICAID, SELFPAY ==
[2022-10-22] VITALS (8 sets, daily range): BP systolic 110–128; BP diastolic 69–91; PULSE 78–96; RESP 18–20; TEMP 36.1–36.4; O2SAT 95–97
[2022-10-22] MEDS: KETOROLAC 15 MG/ML inj IVP (22:10)
[2022-10-22 22:38] LABS: Albumin* 4.4 g/dL (3.3-5.0); Chloride* 103 mmol/L (96-114); Sodium* 134 mmol/L (135-149)
[2022-10-22 22:39] LABS: Potassium* 3.9 mmol/L (3.6-5.1)
[2022-10-22 22:40] LABS: Basophils Percent Auto 0.5 % (0.0-3.0); Creatinine* 1.1 mg/dL (0.5-1.5); Eosinophils Percent Auto 5.3 % (0.0-7.0); Estimated Glomerular Filt Rate 82 ml/min; Hematocrit 40.5 % (37.0-53.0); Hemoglobin* 13.9 gm/dL (13.5-17.5); Immature Granulocytes Pct Auto 1.6 %; Lymphocytes Percent Auto 21.3 % (20-44); Mean Corpuscular HGB Conc 34 gm/dL (32-36); Mean Corpuscular Hemoglobin 29 pg (26-34); Mean Corpuscular Volume 85 fL (80-100); Monocytes Percent Auto 8.7 % (0.0-11.0); Neutrophils Percent Auto 62.6 % (42.0-72.0); Platelet Count* 322 K/uL (140-440); RDW Coefficient of Variation % 12.2 % (11.5-15.5); Red Blood Count 4.77 m/uL (4.30-5.90); White Blood Count* 12.89 K/uL (4.50-11.00)
[2022-10-22 22:41] LABS: Alkaline Phosphatase* 124 U/L (40-150); Aspartate Amino Transferase* 27 U/L (12-35); Bilirubin Direct* 0.2 mg/dL (0.0-0.5); Bilirubin Total* 0.3 mg/dL (0.1-1.5); Blood Urea Nitrogen* 21 mg/dL (7-30); Carbon Dioxide* 22 mmol/L (20-32); Glucose* 176 mg/dL (60-115); Lipase* 185 U/L (23-300); Total Protein* 7.3 g/dL (6.0-8.3)
[2022-10-22 22:42] LABS: Alanine Aminotransferase* 45 U/L (4-50)
[2022-10-22 22:44] LABS: C Reactive Protein* 1.1 mg/dL (0.5-1.0)
--- NOTE | 2022-10-22 22:45 | ED.GENADULT ---
HPI - General Adult General Date Seen: 10/22/22 Chief complaint: Abdominal Pain Stated complaint: Upper left stomach pain, buldge on stomach Time Seen by Provider: 10/22/22 21:29 Source: patient Mode of arrival: ambulatory Limitations: no limitations History of Present Illness HPI narrative: Patient is a 52-year-old male who was sitting in his recliner when he says he had onset of sudden severe squeezing sharp left upper quadrant pain associated with what he describes as a bulge in his left upper quadrant. The bulge is now gone. The pain remains. Says he has been having episodic pain in this area for months, maybe up to a year. He was seen here a few months ago for what he says was similar pain. He had a CT scan at that time which was negative. Gets this pain every once in a while, does not seem to have any inciting factors. He notes that his gallbladder has been removed. He does have a history of gastritis, at 1 point took Zantac but currently does not take anything. No black or bloody stools. No fevers. No chest pain or difficulty breathing. CT scan did not show any evidence of hernia in that area. Does smoke, drinks a couple of drinks a day. Here today with his girlfriend. Related Data Home Medications Medication Instructions Recorded Confirmed ranitidine HCl .Route 04/20/22 07/08/22 Previous Rx's Medication Instructions Recorded fluconazole 150 mg tablet 150 mg PO QWEEK #3 tabs 04/28/22 (Diflucan) magnesium citrate,mag oxide 250 mg 250 mg PO BID-TID muscle cramps 06/21/22 capsule #90 caps naproxen sodium 220 mg tablet 220 - 440 mg PO BID PRN pain #30 06/21/22 tabs celecoxib 200 mg capsule (Celebrex) 200 mg PO BID PRN pain #20 caps 10/22/22 Allergies Allergy/AdvReac Type Severity Reaction Status Date / Time No Known Drug Allergies Allergy Verified 07/08/22 13:56 Review of Systems Status of ROS: Reports: 10 or more systems reviewed and unremarkable except as noted in History and below PFS PFS Social History Smoking Status: Current every day smoker What tobacco products do you use: cigarettes Do you use any of these nicotine containing products: Vaping Products Second hand tobacco smoke exposure: No How often do you have a drink containing alcohol: monthly or less How many standard drinks containing alcohol do you have on a typical day: 1 or 2 How often do you have six or more drinks on one occasion: Never AUDIT-C Alcohol total score: 1 Non-prescribed substance use: marijuana (any form) Non-prescribed substance use details: vape pen service: No Exam Narrative: Exam Narrative: Vital signs as noted above. In general, an alert, nontoxic male. Breathing easily. Head: Normocephalic, atraumatic. Eyes: Pupils are equal reactive. Extraocular movements are full. Conjunctivae are normal. ENT: Mucous membranes are moist. Throat is normal. Neck: Supple without lymphadenopathy. Heart: Regular rate and rhythm. No murmur or rub. Lungs: Clear bilaterally. No increased work of breathing, crackles or wheezes. Abdomen: Protuberant, soft, tenderness largely in the left upper quadrant without rebound guarding or rigidity. No masses or bulging, no palpable defect in the abdominal wall. Extremities: Well perfused. No edema. No calf tenderness. Pulses intact. Neurologic: Patient is alert and oriented to person and place. Speech is fluent. Face is symmetric. Moves all extremities equally. Affect: Normal. Skin: Warm and dry. Well perfused. Const: Vital Signs, click to edit/add: Vital Signs - 24 hr 10/22/22 21:08 10/22/22 21:34 10/22/22 22:53 Temperature 97.0 F L 97.3 F L Pulse Rate 88 Pulse Rate [Left P ulse Oximeter] 96 91 Respiratory Rate 20 20 Blood Pressure Blood Pressure [Ri ght Upper Arm] 128/81 120/91 H Pulse Oximetry 97 97 97 Oxygen Delivery Me thod Room Air Room Air 10/22/22 23:00 10/22/22 23:03 10/22/22 23:15 Temperature 97.6 F Pulse Rate 80 83 78 Pulse Rate [Left P ulse Oximeter] Respiratory Rate 18 Blood Pressure 110/69 110/69 Blood Pressure [Ri ght Upper Arm] Pulse Oximetry 96 96 96 Oxygen Delivery Me thod 10/22/22 23:30 10/22/22 23:41 Temperature Pulse Rate 79 Pulse Rate [Left P ulse Oximeter] Respiratory Rate Blood Pressure 119/73 Blood Pressure [Ri ght Upper Arm] Pulse Oximetry 95 Oxygen Delivery Me thod Documenting provider has reviewed patient's vital signs: yes Course Course Hospital Course: Last time he was here he had good relief with Toradol so I did place an IV and gave him 15 mg of Toradol here. I reviewed his previous records including the previous CT scan which did not show any abnormalities to explain his pain. Reviewed with him that there is no evidence of hernia, so I am not sure have an explanation for the ?fist that he saw pop out of his abdomen. It may be that he did have some muscle spasm in his abdominal wall. Given that he has been having episodic pain in this area for quite some time, I wonder about possible gastritis or even gastric ulcer. I think it is reasonable to check LFTs and lipase, to consider the possibility of pancreatitis or retained stone, but given that he has been having this pain repeatedly for the past year I think a retained stone is somewhat unlikely. I think a cardiac cause unlikely, but I did do an EKG, which showed a sinus rhythm, ventricular rate of 80. No acute ST segment changes. T-waves are unremarkable. Point of care troponin is 0. Other causes of acute abdominal pain such as bowel obstruction, kidney stone, volvulus, seem less likely given the recurrent nature of his pain. Labs overall are fairly unremarkable. His white count is mildly elevated at 12.9. Hemoglobin is 13.9. He has a mild eosinophilia with an absolute eosinophilia count of 0.7, but eosinophilia percentage is 5.3 which is in the normal range. Metabolic panel is unremarkable. Sodium was 134 otherwise electrolytes are normal. Blood sugar is 176. LFTs are entirely within normal limits and CRP is 1.1. Lipase is 185. Urinalysis shows 5-10 white blood cells but 0-2 red blood cells, moderate sediment, few bacteria. Following treatment with Toradol, he notes improvement in his abdominal pain, but did say that he had an increase in his heartburn, which is a frequent symptom for him. He requested Prilosec for that, I did give him Protonix IV, and also gave him some Maalox. In talking with him, he is continuing to have problems with knee pain and has been taking a lot of ibuprofen for that. He says Tylenol does not help. He never did follow up for the MRI as recommended by orthopedics, as he says he has not time. I have encouraged him to check back in with her P [facility] to get the MRI done. It is possible that taking all of the ibuprofen has exacerbated underlying gastritis. I recommended that he stay I starting Prilosec 40 mg daily and give that a couple of weeks. If he is having ongoing pain, primary care follow-up. If at any time he has more severe pain, new symptoms such as vomiting, black or bloody stools, fever, etcetera, return for re-evaluation. At this time, he has a benign abdominal exam, is feeling improved, and labs are reassuring, so I think it is reasonable to let him go home, particularly given the fact that he had a negative CT scan just a few months ago for this same pain. Vital Signs Vital signs: Initial Vital Signs Temperature 97.0 F L 10/22/22 21:08 Temperature Source Temporal Artery Scan 10/22/22 21:08 Pulse Rate 96 10/22/22 21:08 Pulse Rhythm 10/22/22 21:08 Respiratory Rate 20 10/22/22 21:08 Blood Pressure 128/81 10/22/22 21:08 Blood Pressure Mean 96 10/22/22 21:08 Blood Pressure Position Sitting 10/22/22 21:08 Pulse Oximetry 97 10/22/22 21:08 Oxygen Delivery Method 10/22/22 21:08 Vital Signs Temperature 97.0 F L 10/22/22 21:08 Pulse Rate 96 10/22/22 21:08 Respiratory Rate 20 10/22/22 21:08 Blood Pressure 128/81 10/22/22 21:08 Pulse Oximetry 97 10/22/22 21:08 Oxygen Delivery Method 10/22/22 21:08 Temperature 97.6 F 10/22/22 23:00 Pulse Rate 79 10/22/22 23:30 Respiratory Rate 18 10/22/22 23:00 Blood Pressure 119/73 10/22/22 23:41 Pulse Oximetry 95 10/22/22 23:30 Oxygen Delivery Method 10/22/22 21:34 Medical Decision Making Lab Data Labs: Lab Results 10/22/22 10/22/22 10/22/22 Range/Units 22:20 22:20 22:20 WBC 12.89 H (4.50-11.00) K/uL RBC 4.77 (4.30-5.90) m/uL Hgb 13.9 (13.5-17.5) gm/dL Hct 40.5 (37.0-53.0) % MCV 85 (80-100) fL MCH 29 (26-34) pg MCHC 34 (32-36) gm/dL RDW Coeff of Emma 12.2 (11.5-15.5) % Plt Count 322 (140-440) K/uL Neut % (Auto) 62.6 (42.0-72.0) % Lymph % (Auto) 21.3 (20-44) % [place] % (Auto) 8.7 (0.0-11.0) % Eos % (Auto) 5.3 (0.0-7.0) % Baso % (Auto) 0.5 (0.0-3.0) % Neut # (Auto) 8.10 H (1.7-7.0) K/uL Lymph # (Auto) 2.70 (0.90-2.90) K/uL [place] # (Auto) 1.10 H (0.00-0.90) K/UL Eos # (Auto) 0.70 H (0.00-0.50) K/uL Baso # (Auto) 0.10 (0.00-0.30) K/uL Sodium 134 L (135-149) mmol/L Potassium 3.9 (3.6-5.1) mmol/L Chloride 103 (96-114) mmol/L Carbon Dioxide 22 (20-32) mmol/L BUN 21 (7-30) mg/dL Creatinine 1.1 (0.5-1.5) mg/dL Estimated GFR 82 ml/min Glucose 176 H (60-115) mg/dL Calcium 9.0 (8.4-10.6) mg/dL Total Bilirubin 0.3 (0.1-1.5) mg/dL Direct Bilirubin 0.2 (0.0-0.5) mg/dL AST 27 (12-35) U/L ALT 45 (4-50) U/L Alkaline Phosphatase 124 (40-150) U/L C-Reactive Protein 1.1 H (0.5-1.0) mg/dL Total Protein 7.3 (6.0-8.3) g/dL Albumin 4.4 (3.3-5.0) g/dL Lipase 185 (23-300) U/L Urine Color (Yellow) Urine Appearance (Clear) Urine pH (5.0-8.5) Ur Specific [place] (1.000-1.030) Urine Protein (Negative) Urine Glucose (UA) (Negative) Urine Ketones (Negative) Urine Blood (Negative) Urine Nitrite (Negative) Urine Bilirubin (Negative) Urine Urobilinogen (0.2-1.0) Ur Leukocyte Esterase (Negative) Urine RBC (0-2) Urine WBC (0-5) Ur Squamous Epith Cells (None-Few) Amorphous Sediment (None) Urine Bacteria (None) POC Troponin I 0.00 L (0.01-0.04) ng/ml 10/22/22 Range/Units 22:40 WBC (4.50-11.00) K/uL RBC (4.30-5.90) m/uL Hgb (13.5-17.5) gm/dL Hct (37.0-53.0) % MCV (80-100) fL MCH (26-34) pg MCHC (32-36) gm/dL RDW Coeff of Emma (11.5-15.5) % Plt Count (140-440) K/uL Neut % (Auto) (42.0-72.0) % Lymph % (Auto) (20-44) % Karn[place] % (Auto) (0.0-11.0) % Eos % (Auto) (0.0-7.0) % Baso % (Auto) (0.0-3.0) % Neut # (Auto) (1.7-7.0) K/uL Lymph # (Auto) (0.90-2.90) K/uL [place] # (Auto) (0.00-0.90) K/UL Eos # (Auto) (0.00-0.50) K/uL Baso # (Auto) (0.00-0.30) K/uL Sodium (135-149) mmol/L Potassium (3.6-5.1) mmol/L Chloride (96-114) mmol/L Carbon Dioxide (20-32) mmol/L BUN (7-30) mg/dL Creatinine (0.5-1.5) mg/dL Estimated GFR ml/min Glucose (60-115) mg/dL Calcium (8.4-10.6) mg/dL Total Bilirubin (0.1-1.5) mg/dL Direct Bilirubin (0.0-0.5) mg/dL AST (12-35) U/L ALT (4-50) U/L Alkaline Phosphatase (40-150) U/L C-Reactive Protein (0.5-1.0) mg/dL Total Protein (6.0-8.3) g/dL Albumin (3.3-5.0) g/dL Lipase (23-300) U/L Urine Color Yellow (Yellow) Urine Appearance Cloudy A (Clear) Urine pH 5.5 (5.0-8.5) Ur Specific [place] >= 1.030 (1.000-1.030) Urine Protein 2+ A (Negative) Urine Glucose (UA) Negative (Negative) Urine Ketones Negative (Negative) Urine Blood Trace-intact A (Negative) Urine Nitrite Negative (Negative) Urine Bilirubin Negative (Negative) Urine Urobilinogen 0.2 (0.2-1.0) Ur Leukocyte Esterase Trace A (Negative) Urine RBC 0-2 (0-2) Urine WBC 5-10 A (0-5) Ur Squamous Epith Cells Few (None-Few) Amorphous Sediment Moderate A (None) Urine Bacteria Few A (None) POC Troponin I (0.01-0.04) ng/ml Discharge Plan Discharge Clinical Impression: Abdominal pain Patient Disposition: Home, Self-Care Condition: Improved Instructions: Abdominal Pain (ED) Additional Instructions: I would recommend starting Prilosec, 40 mg daily. You can buy this [id number] and take 2 tablets daily rather than the recommended 1. Try this for 2 weeks. If you are not feeling improved, you should follow-up with primary care. If you have worsening pain at any time, vomiting, fevers, black or bloody stools, or other significant symptoms, return for re-evaluation. Prescriptions: New celecoxib [Celebrex] 200 mg capsule 200 mg PO BID PRN (Reason: pain) Qty: 20 0RF No Action ranitidine HCl [Zantac] .Route fluconazole [Diflucan] 150 mg tablet 150 mg PO QWEEK Qty: 3 0RF naproxen sodium 220 mg tablet 220 - 440 mg PO BID PRN (Reason: pain) Qty: 30 0RF magnesium citrate,mag oxide 250 mg capsule 250 mg PO BID-TID Qty: 90 0RF Follow Up/Referrals: Elda Fair PA-C [Primary Care Provider] - Stand Alone Forms: [employer] Info Instructions
[2022-10-22] MEDS: PANTOPRAZOLE SODIUM 40 MG INJ IVP (22:58)
[2022-10-22 22:59] LABS: Appearance Urine Cloudy (Clear); Bilirubin Urine Negative (Negative); Blood Urine Trace-intact (Negative); Color Urine Yellow (Yellow); Glucose Urine Negative (Negative); Ketones Urine Negative (Negative); Leukocyte Esterase Urine Trace (Negative); Nitrite Urine Negative (Negative); Protein Urine 2+ (Negative); Specific Gravity Urine >= 1.030 (1.000-1.030); Urobilinogen Urine 0.2 (0.2-1.0); pH Urine 5.5 (5.0-8.5)
[2022-10-22 23:04] LABS: Slide Review Reflex No
[2022-10-22 23:17] LABS: Bacteria Urine Few; RBC Urine 0-2 (0-2); Squamous Epithelial Cell Urine Few (None-Few)
[2022-10-22 23:18] LABS: Amorphous Sediment Urine Moderate
[2022-10-22] MEDS: MAG HYDROX/ALUMINUM HYD/SIMETH 30 ML ORAL.SUSP PO (23:33)
== END 2022-10-22 23:46 | disposition home or self-care (01) ==
PROVIDERS: Emergency Provider Emergency Medicine; PCP Physician Assistant Surgical
DX: R10.12 Left upper quadrant pain (principal)
CPT/HCPCS: 36415; 80048; 80076; 81001; 83690; 84484; 85025; 86140; 87086; 93005; 96374; 96375; 99284; A9270; C9113; J1885

== ENCOUNTER 2022-12-16 13:04 | Outpatient (CLI) | payer MEDICAID, SELFPAY | END 2022-12-16 13:05 | disposition home or self-care (01) | LOC: AMB 12-20 14:46 | PROVIDERS: PCP Physician Assistant Surgical; Visit Provider Family Medicine | DX: R06.09 Other forms of dyspnea (principal) | CPT/HCPCS: A0425; A0427 ==

== ENCOUNTER 2022-12-16 13:29 | Emergency (ER) | payer MEDICAID, SELFPAY ==
--- NOTE | 2022-12-16 13:30 | ED.NURSE ---
Pt was agitated and verbally combative with EMS crew on arrival. Pt yelling vulgarities at EMS. Performance Improvement Coordinator able to verbally deescalate pt, pt calm and cooperative once EMS departed.
[2022-12-16 13:31] VITALS: BP 142/124; PULSE 102; RESP 20; TEMP 36.8; O2SAT 98; BMI 45.6
[2022-12-16 13:46] VITALS: O2SAT 96
--- NOTE | 2022-12-16 13:46 | CRLHL7_ITS ---
For Patients: As a result of the Century Cures Act, medical imaging exams and procedure reports are released immediately into your electronic medical record. You may view this report before your referring provider. If you have questions, please contact your health care provider. Indication: Chest Pain Comparison: None available. Technique: Single AP view chest Findings: There is hyperinflation with mildly increased interstitial markings. There is no focal consolidation, effusion, or pneumothorax. The cardiomediastinal silhouette is within normal limits. The bony thorax is grossly intact. Impression: Mild interstitial prominence which may represent pulmonary vascular congestion and/or bronchial thickening. No dense consolidation. Dictated by Ambrosio Sprague MD @ 12/16/2022 3:17:27 PM (Electronically Signed)
--- NOTE | 2022-12-16 13:50 | ED.GENADULT ---
HPI - General Adult General Time Seen by Provider: 13:50 Date Seen: 12/16/22 Chief complaint: Chest Pain Stated complaint: chest pain Time Seen by Provider: 12/16/22 13:35 Source: patient Mode of arrival: ambulatory Limitations: no limitations History of Present Illness HPI narrative: Patient is a 52 year old male with history of gastritis, was smoking marijuana this afternoon and developed chest pain and vomiting. He denies any chest pain now to resolve, he still feels a little nauseated. He has stated that he felt some shortness of breath was more that he could not catch his breath from vomiting. That is also improved now. He is quite anxious about the whole situation he has had a history of anxiety although he has not been diagnosed with this. He has a history of gastritis. He works at [employer] with [employer]. He denies other drug intake, denies alcohol but he does drink couple of drinks a day. He has had similar abdominal cramping and pains in the past he reports he had some cramping pain in his abdomen last night. He reports that some of this upset stomach and vomiting happened after he ate a tortilla today as well. Related Data Home Medications Medication Instructions Recorded Confirmed ranitidine HCl .Route 04/20/22 07/08/22 Previous Rx's Medication Instructions Recorded fluconazole 150 mg tablet 150 mg PO QWEEK #3 tabs 04/28/22 (Diflucan) magnesium citrate,mag oxide 250 mg 250 mg PO BID-TID muscle cramps 06/21/22 capsule #90 caps naproxen sodium 220 mg tablet 220 - 440 mg PO BID PRN pain #30 06/21/22 tabs celecoxib 200 mg capsule (Celebrex) 200 mg PO BID PRN pain #20 caps 10/22/22 metformin 500 mg tablet 500 mg PO DAILY #10 tabs 12/16/22 Allergies Allergy/AdvReac Type Severity Reaction Status Date / Time No Known Drug Allergies Allergy Verified 07/08/22 13:56 Review of Systems Status of ROS: Reports: 6 or more systems reviewed and unremarkable except as noted in History and below [facility] Social History Smoking Status: Current every day smoker What tobacco products do you use: cigarettes Do you use any of these nicotine containing products: Vaping Products Second hand tobacco smoke exposure: No How often do you have a drink containing alcohol: monthly or less How many standard drinks containing alcohol do you have on a typical day: 1 or 2 How often do you have six or more drinks on one occasion: Never AUDIT-C Alcohol total score: 1 Non-prescribed substance use: marijuana (any form) Non-prescribed substance use details: taisha rivas service: No Exam Narrative: Exam Narrative: Objective: Patient's blood pressure is elevated initially, his O2 sat is 90% on room air His blood pressure on follow-up evaluation appears more normal. He is anxious, has rapid speech. With reassurance he feels a little bit better and he slows down and he is conversant, his mental status appears appropriate HEENT is unremarkable neck supple nodes chest is clear no rales or wheeze wheezing heart rhythm regular heart murmur abdomen benign soft extremities are no edema neurologic nonfocal upper extremities Good peripheral perfusion noted, skin warm and dry Const: Vital Signs, click to edit/add: Vital Signs - 24 hr 12/16/22 13:31 12/16/22 13:46 12/16/22 14:35 Temperature 98.2 F Pulse Rate 88 Pulse Rate [Right Pulse Oximeter] 102 H Respiratory Rate 20 Blood Pressure 133/89 Blood Pressure [Ri ght Upper Arm] 142/124 H Pulse Oximetry 98 96 94 Oxygen Delivery Me thod Room Air Course Vital Signs Vital signs: Initial Vital Signs Temperature 98.2 F 12/16/22 13:31 Temperature Source Temporal Artery Scan 12/16/22 13:31 Pulse Rate 102 H 12/16/22 13:31 Respiratory Rate 20 12/16/22 13:31 Blood Pressure 142/124 H 12/16/22 13:31 Blood Pressure Mean 130 12/16/22 13:31 Blood Pressure Position Standing 12/16/22 13:31 Pulse Oximetry 98 12/16/22 13:31 Oxygen Delivery Method Room Air 12/16/22 13:31 Vital Signs Temperature 98.2 F 12/16/22 13:31 Pulse Rate 102 H 12/16/22 13:31 Respiratory Rate 20 12/16/22 13:31 Blood Pressure 142/124 H 12/16/22 13:31 Pulse Oximetry 98 12/16/22 13:31 Oxygen Delivery Method Room Air 12/16/22 13:31 Temperature 98.2 F 12/16/22 13:31 Pulse Rate 88 12/16/22 14:35 Respiratory Rate 20 12/16/22 13:31 Blood Pressure 133/89 12/16/22 14:35 Pulse Oximetry 94 12/16/22 14:35 Oxygen Delivery Method Room Air 12/16/22 13:31 Medical Decision Making MDM Narrative Medical decision making narrative: 52-year-old male with episode of GI upset, vomiting, shortness of breath, chest tightness from the vomiting. History of marijuana use. History of gastritis. At this point I think could be appropriate to treat with IV fluid, IV Ativan, IV Protonix, will do a troponin EKG lab studies chest x-ray. Disposition pending findings above. Also will get of him some Zofran IV. In reviewing the patient's EKG that was done on presentation I interpreted to show normal sinus rhythm incomplete right bundle-branch block no acute ST T wave changes. Disposition pending findings above. Addendum: Patient's blood pressures improved markedly, his white count hemoglobin are normal, his sodium is slightly low 134 potassium normal renal function is normal. His glucose is markedly elevated at 347. After discussion with our hospitalist team we elected to give him 500 mg of metformin a day common will need follow-up with his regular doctor in the next couple of days. His CRP is normal, troponin normal. He feels markedly better with the Ativan and fluid he has no further nausea. He has resting comfortably. His EKG shows right bundle-branch block incomplete but otherwise normal EKG. Accu-Chek and supplies prescribed Lab Data Labs: Lab Results 12/16/22 Range/Units 13:45 WBC 10.00 (4.50-11.00) K/uL RBC 5.08 (4.30-5.90) m/uL Hgb 14.5 (13.5-17.5) gm/dL Hct 42.2 (37.0-53.0) % MCV 83 (80-100) fL MCH 29 (26-34) pg MCHC 34 (32-36) gm/dL RDW Coeff of Emma 12.1 (11.5-15.5) % Plt Count 321 (140-440) K/uL Neut % (Auto) 62.7 (42.0-72.0) % Lymph % (Auto) 22.6 (20-44) % [place] % (Auto) 7.8 (0.0-11.0) % Eos % (Auto) 6.1 (0.0-7.0) % Baso % (Auto) 0.4 (0.0-3.0) % Neut # (Auto) 6.27 (1.7-7.0) K/uL Lymph # (Auto) 2.26 (0.90-2.90) K/uL [place] # (Auto) 0.80 (0.00-0.90) K/UL Eos # (Auto) 0.61 H (0.00-0.50) K/uL Baso # (Auto) 0.04 (0.00-0.30) K/uL Sodium 134 L (135-149) mmol/L Potassium 4.3 (3.6-5.1) mmol/L Chloride 102 (96-114) mmol/L Carbon Dioxide 25 (20-32) mmol/L BUN 13 (7-30) mg/dL Creatinine 0.9 (0.5-1.5) mg/dL Estimated Creat Clear 95.00 Estimated GFR 104 ml/min Glucose 347 H (60-115) mg/dL Calcium 9.0 (8.4-10.6) mg/dL Total Bilirubin 0.4 (0.1-1.5) mg/dL Direct Bilirubin 0.2 (0.0-0.5) mg/dL AST 28 (12-35) U/L ALT 37 (4-50) U/L Alkaline Phosphatase 137 (40-150) U/L Troponin I < 0.01 L (0.01-0.04) ng/mL C-Reactive Protein 1.0 (0.5-1.0) mg/dL Total Protein 7.4 (6.0-8.3) g/dL Albumin 4.5 (3.3-5.0) g/dL Discharge Plan Discharge Clinical Impression: Vomiting, Diabetes Patient Disposition: Home w/ Parent or Adult Condition: Improved Instructions: Diabetes and Nutrition (ED), Type 2 Diabetes Management for Adults (ED) Additional Instructions: Rest, fluids, light activity, Prilosec recommended daily for the next couple of weeks, avoid spicy foods, stop marijuana use. Follow up with regular doctor next 2-3 days, return to ED sooner problems or concerns, stop his Zantac and Naprosyn, would use Prilosec instead. Would not take any NSAIDs, such is aspirin Aleve or Advil or naproxen or Celebrex. You will take metformin 1 tablet a day for your blood sugar, and you need to recheck with your regular doctor within the next 2-3 days. Monitor the blood sugar with Accu-Chek, follow-up with primary care as above Activity Level: Light activity Discharge Diet: Diabetic and Heart Healthy (2 gm sodium, low fat) Diet Detail: Avoid spicy food for the next couple of weeks Prescriptions: New metformin 500 mg tablet 500 mg PO DAILY Qty: 10 2RF No Action celecoxib [Celebrex] 200 mg capsule 200 mg PO BID PRN (Reason: pain) Qty: 20 0RF ranitidine HCl [Zantac] .Route fluconazole [Diflucan] 150 mg tablet 150 mg PO QWEEK Qty: 3 0RF naproxen sodium 220 mg tablet 220 - 440 mg PO BID PRN (Reason: pain) Qty: 30 0RF magnesium citrate,mag oxide 250 mg capsule 250 mg PO BID-TID Qty: 90 0RF Follow Up/Referrals: Elda Fair PA-C [Primary Care Provider] - Stand Alone Forms: TalkSession Info Instructions
[2022-12-16 13:57] LABS: Basophils Absolute Auto 0.04 K/uL (0.00-0.30); Basophils Percent Auto 0.4 % (0.0-3.0); Eosinophils Absolute Auto 0.61 K/uL (0.00-0.50); Eosinophils Percent Auto 6.1 % (0.0-7.0); Hematocrit 42.2 % (37.0-53.0); Hemoglobin* 14.5 gm/dL (13.5-17.5); Immature Granulocytes Abs Auto 0.04 K/uL (0.00-0.30); Immature Granulocytes Pct Auto 0.4 %; Lymphocytes Absolute Auto 2.26 K/uL (0.90-2.90); Lymphocytes Percent Auto 22.6 % (20-44); Mean Corpuscular HGB Conc 34 gm/dL (32-36); Mean Corpuscular Hemoglobin 29 pg (26-34); Mean Corpuscular Volume 83 fL (80-100); Monocytes Percent Auto 7.8 % (0.0-11.0); Neutrophils Absolute Auto 6.27 K/uL (1.7-7.0); Neutrophils Percent Auto 62.7 % (42.0-72.0); Platelet Count* 321 K/uL (140-440); RDW Coefficient of Variation % 12.1 % (11.5-15.5); Red Blood Count 5.08 m/uL (4.30-5.90)
[2022-12-16] MEDS: 0.9 % SODIUM CHLORIDE 1000 ml 1,000 ML 6000 ML IV (14:07)
[2022-12-16] MEDS: ASPIRIN 81 MG TAB.CHEW 324 MG PO (14:07)
[2022-12-16] MEDS: LORazepam 2 MG/ML inj 1 MG IVP (14:08)
[2022-12-16 14:09] LABS: Slide Review Reflex No
[2022-12-16] MEDS: ONDANSETRON 2 MG/ML inj 4 MG IVP (14:11)
[2022-12-16 14:12] LABS: Chloride* 102 mmol/L (96-114)
[2022-12-16 14:13] LABS: Albumin* 4.5 g/dL (3.3-5.0); Potassium* 4.3 mmol/L (3.6-5.1); Sodium* 134 mmol/L (135-149)
[2022-12-16] MEDS: PANTOPRAZOLE SODIUM 40 MG INJ IVP (14:13)
[2022-12-16 14:15] LABS: Creatinine* 0.9 mg/dL (0.5-1.5); Estimated Glomerular Filt Rate 104 ml/min
[2022-12-16 14:16] LABS: Alanine Aminotransferase* 37 U/L (4-50); Alkaline Phosphatase* 137 U/L (40-150); Aspartate Amino Transferase* 28 U/L (12-35); Bilirubin Direct* 0.2 mg/dL (0.0-0.5); Bilirubin Total* 0.4 mg/dL (0.1-1.5); Blood Urea Nitrogen* 13 mg/dL (7-30); Carbon Dioxide* 25 mmol/L (20-32); Total Protein* 7.4 g/dL (6.0-8.3)
[2022-12-16 14:17] LABS: Glucose* 347 mg/dL (60-115)
[2022-12-16 14:20] VITALS: BP 116/82; PULSE 89; O2SAT 95
[2022-12-16 14:30] LABS: Troponin I* < 0.01 ng/mL (0.01-0.04)
[2022-12-16 14:35] VITALS: BP 133/89; PULSE 88; O2SAT 94
[2022-12-16] MEDS: METFORMIN 500 MG TABLET PO (15:00)
== END 2022-12-16 15:35 | disposition home or self-care (01) ==
PROVIDERS: Emergency Provider Family Medicine; PCP Physician Assistant Surgical
DX: R11.10 Vomiting, unspecified (principal); E11.9 Type 2 diabetes mellitus without complications
CPT/HCPCS: 36415; 71045; 80048; 80076; 84484; 85025; 86140; 93005; 94761; 96374; 96375; 99284; 99285; A9270; C9113; J2060; J2405; J7030

== ENCOUNTER 2023-05-19 11:01 | Emergency (ER) | payer MEDICAID, SELFPAY ==
[2023-05-19] VITALS (14 sets, daily range): BP systolic 123–143; BP diastolic 88–102; PULSE 67–82; RESP 16; TEMP 36.7; O2SAT 96–99; BMI 42.0
--- NOTE | 2023-05-19 11:24 | ED.NURSE ---
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
--- NOTE | 2023-05-19 11:31 | CRLHL7_ITS ---
For Patients: As a result of the Cures Act, medical imaging exams and procedure reports are released immediately into your electronic medical record. You may view this report before your referring provider. If you have questions, please contact your health care provider. INDICATION: Shortness of breath. TECHNIQUE: Chest 1 views. COMPARISON: February 11, 2023. FINDINGS: Cardiovasculature and mediastinum: Heart size and vasculature are normal in caliber and appearance. Lungs and pleural spaces: Lungs are clear. No sign of infiltrate or mass. No sign of pleural effusion. No pneumothorax. Bones and soft tissues: No significant findings. IMPRESSION: No acute findings and no significant changes from the prior exam. Dictated by Tejinder Johnson MD @ 05/19/2023 12:36:44 PM (Electronically Signed)
--- NOTE | 2023-05-19 11:44 | ED.GENADULT ---
HPI - General Adult General Date Seen: 05/19/23 Chief complaint: Shortness of Breath/Dyspnea Stated complaint: hard to breathe Time Seen by Provider: 05/19/23 11:22 Source: patient Mode of arrival: ambulatory Limitations: no limitations History of Present Illness HPI narrative: Patient is a 52-year-old male who reports for the past several days he has been feeling somewhat poorly with some burning chest discomfort difficulty breathing, chest phlegm. He has had a little bit of cough, does not report any fevers. He has had some epigastric discomfort as well. He did drink 12 beers a few days ago which made his symptoms worse. He also notes that he smokes marijuana at least daily, he admits that he uses this to help with some anxiety, he has smoked marijuana for many many years. He says that he is very worried about these symptoms, he has diabetes and hypertension, he worries about his heart and his lungs, he says he needs to be able to work as he supports his family. He seems fairly anxious. Symptoms have been ongoing for several days, worse for the past 2 days. He cannot sleep at night, it is harder to breathe when he lays down. He has not had lower extremity swelling or pain. He does not have any specific history of heart disease. He has not take anything for GERD although he notes that he does have a history of this diagnosis. He also does not take anything for high blood pressure although he does have a history of this diagnosis as well. He does take metformin for his diabetes. He notes that he is not good about going to the doctor. He does not smoke tobacco. Denies other substance use. Related Data Home Medications Medication Instructions Recorded Confirmed ranitidine HCl .Route 04/20/22 07/08/22 simethicone .ROUTE 05/19/23 Previous Rx's Medication Instructions Recorded metformin 500 mg tablet 500 mg PO DAILY #10 tabs 12/16/22 omeprazole 40 mg capsule,delayed 40 mg PO DAILY #14 caps 05/19/23 release Allergies Allergy/AdvReac Type Severity Reaction Status Date / Time No Known Drug Allergies Allergy Verified 05/19/23 11:13 Review of Systems Status of ROS: Reports: 10 or more systems reviewed and unremarkable except as noted in History and below PFSH PFSH Social History Smoking Status: Former smoker What tobacco products do you use: cigarettes Smoking quit date/years: <= 15 years ago Do you use any of these nicotine containing products: None and Vaping Products Second hand tobacco smoke exposure: Yes How often do you have a drink containing alcohol: monthly or less How many standard drinks containing alcohol do you have on a typical day: 5 or 6 How often do you have six or more drinks on one occasion: Less than monthly AUDIT-C Alcohol total score: 4 Non-prescribed substance use: marijuana (any form) Non-prescribed substance use details: smokes weed everyday Exam Narrative: Exam Narrative: Vital signs as noted above. In general, an alert, nontoxic male. Anxious. Head: Normocephalic, atraumatic. Eyes: Pupils are equal reactive. Extraocular movements are full. Conjunctivae are normal. ENT: Mucous membranes are moist. Neck: Supple without lymphadenopathy. Heart: Regular rate and rhythm. No murmur or rub. Lungs: Clear bilaterally. No increased work of breathing, crackles or wheezes. Abdomen: Protuberant and soft. Some diffuse upper abdominal tenderness without rebound guarding or rigidity. Extremities: Well perfused. No edema. No calf tenderness. Pulses intact. Neurologic: Patient is alert and oriented to person and place. Speech is fluent. Face is symmetric. Moves all extremities equally. Affect: Anxious. Skin: Warm and dry. Well perfused. Const: Vital Signs, click to edit/add: Vital Signs - 24 hr 05/19/23 11:09 05/19/23 11:34 05/19/23 11:55 Temperature 98.1 F Pulse Rate 75 75 Pulse Rate [Pulse Oximeter] 81 Respiratory Rate 16 Blood Pressure Blood Pressure [Le ft Upper Arm] 143/102 H Pulse Oximetry 98 98 99 Oxygen Delivery Me thod Room Air 05/19/23 12:00 05/19/23 12:09 05/19/23 12:15 Temperature Pulse Rate 73 67 Pulse Rate [Pulse Oximeter] Respiratory Rate Blood Pressure Blood Pressure [Le ft Upper Arm] Pulse Oximetry 99 97 99 Oxygen Delivery Me thod 05/19/23 12:30 05/19/23 12:46 05/19/23 12:49 Temperature Pulse Rate 76 74 82 Pulse Rate [Pulse Oximeter] Respiratory Rate Blood Pressure 131/94 H Blood Pressure [Le ft Upper Arm] Pulse Oximetry 98 96 99 Oxygen Delivery Me thod 05/19/23 12:50 05/19/23 13:00 05/19/23 13:15 Temperature Pulse Rate 80 79 75 Pulse Rate [Pulse Oximeter] Respiratory Rate Blood Pressure Blood Pressure [Le ft Upper Arm] Pulse Oximetry 99 98 97 Oxygen Delivery Mi thod 05/19/23 13:30 05/19/23 13:34 Temperature Pulse Rate 76 Pulse Rate [Pulse Oximeter] 73 Respiratory Rate 16 Blood Pressure 123/88 Blood Pressure [Le ft Upper Arm] 123/88 Pulse Oximetry 99 [facility] provider has reviewed patient's vital signs: yes Course Course ED Course: Differential diagnosis at this time is fairly broad. I would place GERD/gastritis/esophagitis fairly high my list, but certainly angina or acute coronary syndrome, PE, pneumonia, COVID, dissection, heart failure, pancreatitis, cholecystitis, among others are also possibilities. By my review, chest x-ray was unremarkable. Final radiology read was negative. His point of care troponin was 0, with several days of persistent symptoms I think a single troponin is adequate. His D-dimer was 0.39. Metabolic panel was unremarkable. LFTs were normal. BMP was 40. CRP was 0.9. Lipase was normal at 205. COVID was negative. I gave him some Tums here, we do not currently have GI cocktails available. He actually says he feels significantly better after Tums. His presentation to me is strongly suggestive of gastritis/gastroesophageal reflux. I suggested that we start him on 40 mg daily of omeprazole. He has an appointment with his primary doctor actually tomorrow, saw have him follow up there, it may be reasonable to get a stress test just to rule out possibility out, I have discussed with him that we as of today I do not see anything that suggest a cardiac source for his pain but that our workup here is not exhaustive. I gave him a note excusing him from work today as he did miss work to come to the ER, but I have also cleared him to return to work as I think that is reasonable based on findings today. Return at any time for acute worsening but primary care follow-up tomorrow as planned. Vital Signs Vital signs: Initial Vital Signs Temperature 98.1 F 05/19/23 11:09 Temperature Source Temporal Artery Scan 05/19/23 11:09 Pulse Rate 81 05/19/23 11:09 Respiratory Rate 16 05/19/23 11:09 Blood Pressure 143/102 H 05/19/23 11:09 Blood Pressure Mean 115 H 05/19/23 11:09 Blood Pressure Position Sitting 05/19/23 11:09 Pulse Oximetry 98 05/19/23 11:09 Oxygen Delivery Method Room Air 05/19/23 11:09 Vital Signs Temperature 98.1 F 05/19/23 11:09 Pulse Rate 81 05/19/23 11:09 Respiratory Rate 16 05/19/23 11:09 Blood Pressure 143/102 H 05/19/23 11:09 Pulse Oximetry 98 05/19/23 11:09 Oxygen Delivery Method Room Air 05/19/23 11:09 Temperature 98.1 F 05/19/23 11:09 Pulse Rate 73 05/19/23 13:34 Respiratory Rate 16 05/19/23 13:34 Blood Pressure 123/88 05/19/23 13:34 Pulse Oximetry 99 05/19/23 13:30 Oxygen Delivery Method Room Air 05/19/23 11:09 Medical Decision Making Lab Data Labs: Lab Results 05/19/23 05/19/23 Range/Units 12:00 12:15 D-Dimer Quant (PE/DVT) 0.39 (0.00-0.50) ug/ml Sodium 136 (135-149) mmol/L Potassium 4.4 (3.6-5.1) mmol/L Chloride 102 (96-114) mmol/L Carbon Dioxide 24 (20-32) mmol/L Anion Gap 10 (7-15) mEq/L BUN 14 (7-30) mg/dL Creatinine 1.0 (0.5-1.5) mg/dL Estimated Creat Clear 79.75 Estimated GFR 92 ml/min Glucose 125 H (60-115) mg/dL Calcium 10.0 (8.4-10.6) mg/dL Total Bilirubin 0.5 (0.1-1.5) mg/dL Direct Bilirubin 0.1 (0.0-0.5) mg/dL AST 33 (12-35) U/L ALT 49 (4-50) U/L Alkaline Phosphatase 123 (40-150) U/L C-Reactive Protein 0.9 (0.5-1.0) mg/dL NT-Pro-B Natriuret Pep 40 pg/mL Total Protein 8.2 (6.0-8.3) g/dL Albumin 4.9 (3.3-5.0) g/dL Lipase 205 (23-300) U/L SARS-CoV-2 (PCR) Negative SARS-CoV-2 (Negative) Influenza Type A (PCR) Negative PCR FLU A (Negative) Influenza Type B (PCR) Negative PCR FLU B (Negative) RSV (PCR) Negative PCR RSV (Negative) POC Troponin I 0.00 L (0.01-0.04) ng/ml Discharge Plan Discharge Clinical Impression: GERD (gastroesophageal reflux disease) Patient Disposition: Home, Self-Care Condition: Improved Instructions: GERD (Gastroesophageal Reflux Disease) (DC) Additional Instructions: Omeprazole 40 mg daily for 2 weeks. Primary care follow-up tomorrow for recheck as planned. Discussed with your doctor whether any further evaluations such as stress testing is recommended. Your workup today does not suggest any problems with your heart and lungs, but is not exhaustive. Avoid alcohol at least for the next couple of weeks. Do not take medications such as ibuprofen, Aleve, naproxen. Prescriptions: New omeprazole 40 mg capsule,delayed release(DR/EC) 40 mg PO DAILY Qty: 14 2RF No Action metformin 500 mg tablet 500 mg PO DAILY Qty: 10 2RF ranitidine HCl [Zantac] .Route simethicone [Mylanta Gas] .ROUTE Follow Up/Referrals: Elda Fair PA-C [Primary Care Provider] - Stand Alone Forms: Spongecell Info Instructions
[2023-05-19] MEDS: 0.9 % SODIUM CHLORIDE 1000 ml 1,000 ML IV (12:12)
[2023-05-19] MEDS: CALCIUM CARBONATE 500 MG CHEW PO (12:12)
[2023-05-19 12:27] LABS: Albumin* 4.9 g/dL (3.3-5.0); Chloride* 102 mmol/L (96-114); Sodium* 136 mmol/L (135-149)
[2023-05-19 12:28] LABS: Potassium* 4.4 mmol/L (3.6-5.1)
[2023-05-19 12:30] LABS: Anion Gap 10 mEq/L (7-15); Aspartate Amino Transferase* 33 U/L (12-35); Bilirubin Direct* 0.1 mg/dL (0.0-0.5); Bilirubin Total* 0.5 mg/dL (0.1-1.5); Carbon Dioxide* 24 mmol/L (20-32); D Dimer Quantitative* 0.39 ug/ml (0.00-0.50); Est. Creatinine Clearance* 79.75; Estimated Glomerular Filt Rate 92 ml/min; Total Protein* 8.2 g/dL (6.0-8.3)
[2023-05-19 12:31] LABS: Alanine Aminotransferase* 49 U/L (4-50); Alkaline Phosphatase* 123 U/L (40-150); Blood Urea Nitrogen* 14 mg/dL (7-30); Glucose* 125 mg/dL (60-115); Lipase* 205 U/L (23-300)
[2023-05-19 12:33] LABS: C Reactive Protein* 0.9 mg/dL (0.5-1.0)
[2023-05-19 12:56] LABS: NT Pro B Type NatriureticPept* 40 pg/mL
[2023-05-19 13:03] LABS: PCR FLU A Negative PCR FLU A (Negative); PCR FLU B Negative PCR FLU B (Negative); PCR RSV Negative PCR RSV (Negative)
[2023-05-19 13:04] LABS: SARS PCR* Negative SARS-CoV-2 (Negative)
== END 2023-05-19 13:35 | disposition home or self-care (01) ==
PROVIDERS: Emergency Provider Emergency Medicine; PCP Physician Assistant Surgical
DX: Z20.822 Contact with and (suspected) exposure to COVID-19 (principal); K21.9 Gastro-esophageal reflux disease without esophagitis
CPT/HCPCS: 36415; 71045; 80048; 80076; 83690; 83880; 84484; 85379; 86140; 87631; 93005; 94761; 99283; 99284; 99285; A9270; J7030

== ENCOUNTER 2023-07-22 12:30 | Outpatient (RCR) | payer MEDICAID, SELFPAY | END 2023-11-19 23:59 | disposition home or self-care (01) | PROVIDERS: PCP Physician Assistant Surgical; Visit Provider Family Medicine | DX: M62.830 Muscle spasm of back (principal); M54.50 Low back pain, unspecified; G89.29 Other chronic pain; Z51.89 Encounter for other specified aftercare | CPT/HCPCS: 97110; 97163; 97530 ==

== ENCOUNTER 2023-09-16 14:04 | Emergency (ER) | payer MEDICAID, SELFPAY ==
[2023-09-16 14:58] LABS: PCR FLU A Negative PCR FLU A (Negative); PCR FLU B Negative PCR FLU B (Negative); PCR RSV Negative PCR RSV (Negative)
[2023-09-16 15:17] LABS: SARS PCR* Negative SARS-CoV-2 (Negative)
[2023-09-16 15:20] VITALS: TEMP 36.9; BMI 43.3
[2023-09-16 15:55] VITALS: BP 123/74; PULSE 75; RESP 12; TEMP 36.4; O2SAT 96
--- NOTE | 2023-09-16 16:01 | ED_ITS ---
HPI - General Adult General Chief complaint: Cough Stated complaint: coughing, congestion, shortness of breath Time Seen by Provider: 09/16/23 15:46 History of Present Illness HPI narrative: This 53-year-old male comes in reporting upper respiratory symptoms including cough and nasal congestion. He states that he did not sleep so well last night because of these symptoms. He reports that these symptoms started yesterday. Other members in his family have similar symptoms. He arrives here with normal vital signs. Related Data Home Medications Medication Instructions Recorded Confirmed ranitidine HCl .Route 04/20/22 07/08/22 simethicone .ROUTE 05/19/23 Previous Rx's Medication Instructions Recorded metformin 500 mg tablet 500 mg PO DAILY #10 tabs 12/16/22 omeprazole 40 mg capsule,delayed 40 mg PO DAILY #14 caps 05/19/23 release codeine 10 mg-guaifenesin 200 mg/5 10 ml PO Q4-6H PRN #473 mL 09/16/23 mL oral liquid (Coditussin AC) Allergies Allergy/AdvReac Type Severity Reaction Status Date / Time No Known Drug Allergies Allergy Verified 05/19/23 11:13 Review of Systems Status of ROS: Reports: 10 or more systems reviewed and unremarkable except as noted in History and below Narrative: Constitutional: No fevers, no weight gain or loss. Eyes: No discharge. No vision changes. HENT: No sore throat, no ear pain. He reports nasal and chest congestion. Cardiovascular: No chest pain, no palpitations. Respiratory: No shortness of breath, no wheezes. He has a productive cough. Gastrointestinal: No abdominal pain, no vomiting, no diarrhea. Genitourinary: No dysuria, no hematuria. Musculoskeletal: Normal range of motion. Skin: No rashes, no pruritis. Neurological: No dizziness, weakness, sensory change, speech change. Endo/Heme/Allergies: No bruising or bleeding. No polydipsia. Pysch: no suicidality, no anxiety, no insomnia. All other systems reviewed and are negative. [facility] Social History (Updated 05/19/23 @ 18:00 by Gabby Valdez MD) Smoking Status: Former smoker What tobacco products do you use: cigarettes Smoking quit date/years: <= 15 years ago Do you use any of these nicotine containing products: None and Vaping Products Second hand tobacco smoke exposure: Yes How often do you have a drink containing alcohol: monthly or less How many standard drinks containing alcohol do you have on a typical day: 5 or 6 How often do you have six or more drinks on one occasion: Less than monthly AUDIT-C Alcohol total score: 4 Non-prescribed substance use: marijuana (any form) Non-prescribed substance use details: smokes weed everyday Exam Narrative: Exam Narrative: Constitutional: Well-developed, well-nourished, no acute distress. HEENT: Normocephalic, atraumatic. Neck: Normal range of motion. Nontender. Supple. Heart: Regular. No murmurs. Normal rate. Intact distal pulses. Lungs: Clear to auscultation. No chest discomfort. No wheezes, rhonchi, or rales. Abdomen: Normal bowel sounds. Nontender. No rebound tenderness. Genitalia: Deferred. Back: No midline tenderness. Normal range of motion. Extremities: Normal range of motion. No injury. Skin: Intact. No rash. Warm. No erythema or pallor. Neurologic: No altered sensation. No weakness. Alert and oriented. Psychiatric: No suicidality. No anxiety or depression. No insomnia. Nursing notes and vitals signs are reviewed. Const: Vital Signs, click to edit/add: Vital Signs - 24 hr 09/16/23 15:55 Temperature 97.5 F L Pulse Rate [Left P ulse Oximeter] 75 Respiratory Rate 12 Blood Pressure [Ri ght Upper Arm] 123/74 Pulse Oximetry 96 Oxygen Delivery Me thod Room Air Course Vital Signs Vital signs: Initial Vital Signs Temperature 97.5 F L 09/16/23 15:55 Temperature Source Tympanic 09/16/23 15:55 Pulse Rate 75 09/16/23 15:55 Pulse Rhythm Regular 09/16/23 15:55 Respiratory Rate 12 09/16/23 15:55 Respiratory Effort Normal 09/16/23 15:55 Respiratory Depth Normal 09/16/23 15:55 Respiratory Pattern Normal 09/16/23 15:55 Blood Pressure 123/74 09/16/23 15:55 Blood Pressure Mean 90 09/16/23 15:55 Blood Pressure Position Sitting 09/16/23 15:55 Pulse Oximetry 96 09/16/23 15:55 Oxygen Delivery Method Room Air 09/16/23 15:55 Vital Signs Temperature 97.5 F L 09/16/23 15:55 Pulse Rate 75 09/16/23 15:55 Respiratory Rate 12 09/16/23 15:55 Blood Pressure 123/74 09/16/23 15:55 Pulse Oximetry 96 09/16/23 15:55 Oxygen Delivery Method Room Air 09/16/23 15:55 Temperature 97.5 F L 09/16/23 15:55 Pulse Rate 75 09/16/23 15:55 Respiratory Rate 12 09/16/23 15:55 Blood Pressure 123/74 09/16/23 15:55 Pulse Oximetry 96 09/16/23 15:55 Oxygen Delivery Method Room Air 09/16/23 15:55 Medical Decision Making MDM Narrative Medical decision making narrative: This patient is reporting upper respiratory symptoms as described above. He arrives here with normal vital signs. Nasal pharyngeal swab returns negative for COVID, influenza, and RSV. His symptoms are likely due to some kind of viral infection. The patient did receive a prescription for Robitussin AC. He is encouraged use [id number] medicines also as needed and directed. Lab Data Labs: Lab Results 09/16/23 Range/Units 14:15 SARS-CoV-2 (PCR) Negative SARS-CoV-2 (Negative) Influenza Type A (PCR) Negative PCR FLU A (Negative) Influenza Type B (PCR) Negative PCR FLU B (Negative) RSV (PCR) Negative PCR RSV (Negative) Discharge Plan Discharge Clinical Impression: Acute upper respiratory infection Patient Disposition: Home, Self-Care Condition: Stable Additional Instructions: Use medication as needed and directed. Also use [id number] medicines as needed and directed. Follow up with MD return if worsening. Prescriptions: New Coditussin AC 10-200 mg/5 mL liquid 10 ml PO Q4-6H PRNQty: 473 0RF No Action metformin 500 mg tablet 500 mg PO DAILY Qty: 10 2RF ranitidine HCl [Zantac] .Route simethicone [Mylanta Gas] .ROUTE omeprazole 40 mg capsule,delayed release(DR/EC) 40 mg PO DAILY Qty: 14 2RF Follow Up/Referrals: Elda Grijalva PA-C [Primary Care Provider] - Stand Alone [facility]
[2023-09-16 16:46] VITALS: BP 123/76; PULSE 87; RESP 16
--- NOTE | 2023-09-16 16:53 | ED.NURSE ---
pharmacy called and needed the concentration changed to 10/100 and dispense 120 ml of medication to patient per pharmacy request and difficulty obtaining the medication.
== END 2023-09-16 16:49 | disposition home or self-care (01) ==
LOC: ED 16:08
PROVIDERS: Emergency Provider Emergency Medicine Emergency Medical Services; PCP Physician Assistant Surgical
DX: J06.9 Acute upper respiratory infection, unspecified (principal)
CPT/HCPCS: 87631; 99282; 99283; 99284

== ENCOUNTER 2024-06-12 07:59 | Emergency (ER) | payer MEDICAID, SELFPAY ==
[2024-06-12] VITALS (12 sets, daily range): BP systolic 119–136; BP diastolic 77–106; PULSE 66–83; RESP 18; TEMP 35.8; O2SAT 94–98; BMI 30.4
--- NOTE | 2024-06-12 08:23 | CRLHL7_ITS ---
For Patients: As a result of the Century Cures Act, medical imaging exams and procedure reports are released immediately into your electronic medical record. You may view this report before your referring provider. If you have questions, please contact your health care provider. INDICATION: COUGH, SOB TECHNIQUE: Chest 1 view COMPARISON: 05/19/2023 FINDINGS: Cardiovascular and mediastinum: Heart size and vasculature are normal in caliber and appearance. Lungs and pleural spaces: Lungs are clear. No sign of infiltrate or mass. No sign of pleural effusion. No pneumothorax. Bones and soft tissues: No significant findings. IMPRESSION: No acute findings. Dictated by Dawson Justice MD @ 06/12/2024 8:46:22 AM (Electronically Signed)
--- OUTSIDE RECORDS SUMMARY | 2024-06-12 08:33 | XMS_ITS | Clinical Summary ---
Author Organization [employer] [facility] Address [place], [place] [address] Care Team Providers Care Loans Officer Name Role Phone Daphney Sun MD Primary Care Provider [phone] Gabby Narvaez Unavailable [phone] Allergies No known active allergies Medications Medication Sig Dispensed Refills Start Date End Date Status Accu-Chek Softclix Lancets 12/16/2022 Active Accu-Chek Guide Me Glucose Mtr 12/16/2022 Active Accu-Chek Guide test strips strip 12/16/2022 Active cyclobenzaprine (FLEXERIL) 10 mg tabletIndications:Mu scle spasm of back,Chronic bilateral low back pain without sciatica Take 1 Tablet (10 mg) by mouth 3 times daily if needed for Muscle Spasm. 30 Tablet 04/26/2024 Active metFORMIN (GLUCOPHAGE XR) 500 mg Extended-Release tabletIndications:Ty pe 2 diabetes mellitus without complication, without long-term current use of insulin (HC) Take 2 Tablets (1,000 mg) by mouth two times daily with meals. 360 Tablet 4 04/26/2024 Active omeprazole 20 mg tabletIndications:Ch ronic GERD Take 1 Tablet (20 mg) by mouth once daily before a meal. 100 Tablet 3 04/26/2024 Active Active Problems Problem Noted Date Diagnosed Date Type 2 diabetes mellitus wit hout complication, without long-term current use of insulin 04/26/2024 Marijuana dependence 04/26/2024 Encounters Date Type Department Care Team Description 05/22/2024 Patient Outreach [address] [address] [facility] 05/02/2024 Patient Outreach [address] [place] [address] [facility] 05/01/2024 Patient Outreach [address] [address] Gabby Narvaez [facility] Care Coordination 04/28/2024 1:00 PM CDT Phone Office Visit [facility] [address] [place] [address] Shade Swift, [facility] Visit; Phone Visit 04/28/2024 Travel 04/27/2024 Patient Outreach [address] [address] Gabby Narvaez [facility] Care Coordination 04/27/2024 Patient Outreach [facility] Care Management Navigation/[facility] [address] [place] [address] Leslie Heaton Care Management Intake (Engagement Outreach/) 04/26/2024 10:00 AM CDT Ancillary Procedure [facility] [address] [place] [address] 04/26/2024 8:45 AM CDT Office Visit [facility] [address] [place] [address] Daphney Sun MD Abdominal Pain (Working on the lawn, on going pain, all over abdomin ) 04/26/2024 Travel 04/23/2024 Refill [facility] [address] [place] [address] Daphney Sun MD Refill Request (Metformin) from Last 3 Months Immunizations Name Administration Dates Next Due COVID-19 VACCINE SPIKEVAX (M ODERNA 50MCG/0.5ML) 12YO+ PFS 06/30/2023 COVID-19 vaccine (Nayely-J&J) [facility]ENTINO COVID-19 vaccine (Pfizer-Bio NTech 30mcg/0.3mL) 12YO+ BIVALENT PF MDV 06/25/2022 Influenza, IIV4 06/30/2023,06/25/2022 Pneumococcal Conj 20-valent (Prevnar 20) 022 Tdap 06/25/2022 Social History Tobacco Use Types Packs/Day Years Used Date Smoking Tobacco: Former Cigarettes Smokeless Tobacco: Never Tobacco Cessation:Counseling Given: Not Answered Alcohol Use Standard Drinks/Week Comments Not Currently 0 (1 standard drink = 0.6 oz pur e alcohol) occ PHQ-2 Answer Date Recorded PHQ-2 TOTAL SCORE 2 03/27/2022 Social Connections Answer Date Recorded Frequency of Communication with Friends and Fami ly Not on file 03/27/2022 Sex and Gender Information Value Date Recorded Sex Assigned at Not on file Gender Identity Not on file Sexual Orientation Not on file Obstetrics History Last Filed Vital Signs Vital Sign Reading Time Taken Comments Blood Pressure 124/83 04/26/2024 8:48 AM CDT Pulse 87 04/26/2024 8:48 AM CDT Temperature 36.7 ??C (98.1 ??F) 04/26/2024 8:48 AM CD T Respiratory Rate - - Oxygen Saturation 98% 04/26/2024 8:48 AM CDT Inhaled Oxygen Concentration - - Weight 115.9 kg (255 lb 9.6 oz) 04/26/2024 8:48 AM CDT Height 172 cm (5' 7.72) 03/27/2022 10: 21 AM CDT Body Mass Index 39.19 03/27/2022 10:21 AM CDT Plan of Treatment Upcoming Encounters Date Type Department Care Team (Late st Contact Info) Description 07/31/2024 10:00 AM 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 Office Visit [facility] [address] [place] [address] Daphney Sun MD [address] [place] [address] Health Maintenance Due Date Last Done Comments Hepatitis B series for Diabe hugo (1 of 3 - 19+ 3-dose series) 1991 Colonoscopy through age 75 2017 Zoster (shingles) series for age 50+ (1 of 2) 2022 BMI (ht and wt on same day) for age 18+ 03/27/2023 03/27/2022 Depression screening for age 12+ 03/27/2023 03/27/20 22 COVID-19 vaccine series ( season) 2024 06/30/2023, 06/25/2022, 02/12/2021 Influenza for age 50-64 05/14/2024 06/30/2023, 06/25 Lipids for age 45-75 04/26/2029 04/26/2024, 12/26/19 23 Tetanus booster 06/25/2032 06/25/2022 Pneumococcal series for age 6-64 Completed 06/25/20 22 Tdap Completed 06/25/2022 HIV for age 15-65 Completed 04/26/2024 Hepatitis C screening for age 18-79 Completed 04/26 Procedures Procedure Name Priority Date/Time Associated Diagnosis Comments URINE ALBUMIN TO CREATININE RATIO, RANDOM Routine 04/26/2024 10:47 AM CDT Type 2 diabetes mellitus without complication, without long-term current use of insulin (HC) CTA CHEST ABDOMEN PELVIS STAT 04/26/2024 10:34 AM CDT Acute abdominal pain CREATININE,ISTAT Routine 04/26/2024 10:2 1 AM CDT Observation or evaluation for suspected condition CBC WITH AUTO DIFFERENTIAL Routine 04/26/2024 9:45 AM CDT Acute abdominal pain COMP METABOLIC PANEL Routine 04/26/2024 9:45 AM CDT Acute abdominal pain ANTI HCV Routine 04/26/2024 9:45 AM CDT Need for hepatitis C screening test ANTI HIV 1/2 Routine 04/26/2024 9:45 AM CDT Screening for HIV (human immunodeficiency virus) HEMOGLOBIN A1C MONITORING (POCT) Routine 04/26/2024 9:45 AM CDT Type 2 diabetes mellitus without complication, without long-term current use of insulin (HC) LIPID PANEL W REFLEX MEASURED LDL Routine 04/26/2024 9:45 AM CDT Type 2 diabetes mellitus without complication, without long-term current use of insulin (HC) CBC WITH AUTO DIFFERENTIAL Routine 04/26/2024 9:45 AM CDT Acute abdominal pain from Last 3 Months Results * (ABNORMAL) URINE ALBUMIN TO CREATININE RATIO, RANDOM (04/26/2024 10:47 AM CDT) ALB RAND URINE 133.0 mg/L 04/26/2024 8:11 PM CDT [facility] CREATININE,URIN E 0.77 g/L 04/26/2024 8:11 PM CDT [facility] ALBUMIN TO CREATININE RATIO,RAND UR 172.7(H) <30.0 mg/g creat 04/26/2024 8:11 PM CDT [facility] Urine URINE SPECIMEN / Unknown Non-Blood / Unknown 04/26/2024 10:47 AM CDT 04/26/2024 10:54 AM CDT Narrative [facility] - 04/26/2024 8:11 PM CDT If Albumin to Creatinine Ratio is elevated, consider the following: ? Elevations seen with incipient nephropathy associated ?? with diabetes mellitus or hypertension. Stress, exercise,hematuria, ?? and urinary tract infection may also produce elevated results. If clinically indicated, confirm with ?24 Hour Albumin to Creatinine Ratio. ?? Daphney Sun MD URINE [facility] [address] [place] [address], * CTA CHEST ABDOMEN PELVIS (04/26/2024 10:34 AM CDT) Anatomical Region Laterality Modality Abdomen, Pelvis, AORTA, LIVER, SPLEEN, CHEST Computed Tomography 04/26/2024 10:5 3 AM CDT Narrative 04/26/2024 10:53 AM CDT For Patients: ??As a result of the 21st Century Cures Act, medical imaging exams and procedure reports are released immediately into your electronic medical record. ??You may view this report before your referring provider. ??If you have questions, please contact your health care provider. Indication: Acute abdominal pain with ripping sensation. Multiple risk factors for atherosclerotic vascular disease Technique: CT examination the chest, abdomen and pelvis was performed. The study was performed following the uneventful intravenous administration of 100 cc of Omnipaque 350. Imaging was acquired from the thoracic inlet through the symphysis pubis. Status performed showing primarily the systemic arterial phase of injection. Sagittal and coronal reformatted imaging was performed. There is no noncontrast portion of the study. Comparison: None Findings: CHEST: There is no mediastinal or hilar adenopathy or mass. There is no pericardial effusion. The lungs show a few tiny nodular opacities the largest of which measures 3.6 millimeters in the right middle lobe. Likely benign. Consider a 12 month follow-up chest CT without contrast. No pleural effusion or pneumothorax. ABDOMEN AND PELVIS: Fatty infiltration of the liver. No focal mass or biliary ductal dilation. Surgically absent gallbladder. Adrenal glands, kidneys, spleen and pancreas are unremarkable. No free fluid or adenopathy. No acute GI finding. No free air. OSSEOUS STRUCTURES AND BODY WALL: Degenerative changes without fracture or destructive process. No significant abdominal wall abnormality. Incidental gynecomastia VASCULAR PORTION OF STUDY: Atherosclerotic vascular calcifications. Appropriate tapering of the aorta from proximal to distal. No evidence of thoracic or abdominal aortic dissection. No high-grade stenosis of any large branch vessel in the abdomen or pelvis or the great vessels. No evidence of pulmonary embolus of the bolus was not specifically timed for the distribution. Impression: 1. CHEST: A few small nodules are noted, likely benign. Largest measures 3.6 millimeters. Consider 12 month follow-up noncontrast chest CT. 2. ABDOMEN AND PELVIS: Fatty infiltration of liver. Surgically absent gallbladder. No acute appearing finding in the abdomen or pelvis 3. OSSEOUS STRUCTURES AND BODY WALL: No acute appearing finding. Incidental bilateral gynecomastia 4. VASCULAR PORTION OF STUDY: Atherosclerotic vascular calcifications. No aneurysm. No dissection. No visualized pulmonary embolus. No high-grade stenosis of any large branch vessel. Please note that all CT scans at this facility use dose modulation, iterative reconstruction, and/or weight-based dosing when appropriate to reduce radiation dose to as low as reasonably achievable. Dictated by Manuelito Elliott MD @ 04/26/2024 10:53:49 AM (Electronically Signed) Procedure Note Manuelito Elliott MD - 04/26/2024 For Patients: As a result of the Cures Act, medical imagingexams and procedure reports are released immediately into your electronicmedical record. You may view this report before your referring provider.If you have questions, please contact your health care provider. Indication: Acute abdominal pain with ripping sensation. Multiple risk factors foratherosclerotic vascular disease Technique: CT examination the chest, abdomen and pelvis was performed. The study wasperformed following the uneventful intravenous administration of 100 cc ofOmnipaque 350. Imaging was acquired from the thoracic inlet through thesymphysis pubis. Status performed showing primarily the systemic arterialphase of injection. Sagittal and coronal reformatted imaging wasperformed. There is no noncontrast portion of the study. Comparison: None Findings: CHEST: There is no mediastinal or hilar adenopathy or mass. There is nopericardial effusion. The lungs show a few tiny nodular opacities thelargest of which measures 3.6 millimeters in the right middle lobe. Likelybenign. Consider a 12 month follow-up chest CT without contrast. Nopleural effusion or pneumothorax. ABDOMEN AND PELVIS: Fatty infiltration of the liver. No focal mass orbiliary ductal dilation. Surgically absent gallbladder. Adrenal glands,kidneys, spleen and pancreas are unremarkable. No free fluid oradenopathy. No acute GI finding. No free air. OSSEOUS STRUCTURES AND BODY WALL: Degenerative changes without fracture ordestructive process. No significant abdominal wall abnormality. Incidentalgynecomastia VASCULAR PORTION OF STUDY: Atherosclerotic vascular calcifications.Appropriate tapering of the aorta from proximal to distal. No evidence ofthoracic or abdominal aortic dissection. No high-grade stenosis of anylarge branch vessel in the abdomen or pelvis or the great vessels. Noevidence of pulmonary embolus of the bolus was not specifically timed forthe distribution. Impression: 1. CHEST: A few small nodules are noted, likely benign. Largest measures3.6 millimeters. Consider 12 month follow-up noncontrast chest CT. 2. ABDOMEN AND PELVIS: Fatty infiltration of liver. Surgically absentgallbladder. No acute appearing finding in the abdomen or pelvis 3. OSSEOUS STRUCTURES AND BODY WALL: No acute appearing finding.Incidental bilateral gynecomastia 4. VASCULAR PORTION OF STUDY: Atherosclerotic vascular calcifications. Noaneurysm. No dissection. No visualized pulmonary embolus. No high-gradestenosis of any large branch vessel. Please note that all CT scans at this facility use dose modulation,iterative reconstruction, and/or weight-based dosing when appropriate toreduce radiation dose to as low as reasonably achievable. Dictated by Manuelito Elliott MD @ 04/26/2024 10:53:49 AM (Electronically Signed) Daphney Sun MD CT * CREATININE,ISTAT (04/26/2024 10:21 AM CDT) [facility] CREATININE, POCT 1.00 0.57 - 1.11 mg/dL 04/26/2024 10:24 AM CDT [facility] eGFR >90 >90 mL/min/1.7 3m2 04/26/2024 10:24 AM CDT [facility] Comment:As of 2021, eG FR is calculated by the CKD-EPI creatinine equation without race adjustment. eGFR can be influenced by muscle mass, exercise, and diet. The reported eGFR is an estimation only and is only applicable if the renal function is stable. Blood BLOOD SPECIMEN / Unknown 04/26/2024 10:21 AM CDT 04/26/2024 10:24 AM CDT Daphney Sun MD CHEMISTRY [facility] [address] [place] [address], * (ABNORMAL) CBC WITH AUTO DIFFERENTIAL (04/26/2024 9:45 AM CDT) [facility] WHITE BLOOD COUNT 9.4 4.5 - 11.0 thou/cu mm 04/26/2024 10:13 AM CDT [facility] RED BLOOD COUNT 4.90 4.30 - 5.90 mil/cu mm 04/26/2024 10:13 AM CDT [facility] HEMOGLOBIN 14.2 13.5 - 17.5 g/dL 04/26/2024 10:13 AM CDT [facility] HEMATOCRIT 41.5 37.0 - 53.0 % 04/26/2024 10:13 AM CDT [facility] MCV 85 80 - 100 fL 04/26/2024 10:13 AM CDT [facility] MCH 29.0 26.0 - 34.0 pg 04/26/2024 10:13 AM CDT [facility] MCHC 34.2 32.0 - 36.0 g/dL 04/26/2024 10:13 AM CDT [facility] RDW 13.4 11.5 - 15.5 % 04/26/2024 10:13 AM CDT [facility] PLATELET COUNT 318 140 - 440 thou/cu mm 04/26/2024 10:13 AM CDT [facility] MPV 8.6 6.5 - 11.0 fL 04/26/2024 10:13 AM CDT [facility] % NEUT 60.8 % 04/26/2024 10:13 AM CDT [facility] % LYMPH 22.8 % 04/26/2024 10:13 AM CDT [facility] % MONO 8.5 % 04/26/2024 10:13 AM CDT [facility] % EOS 7.4 % 04/26/2024 10:13 AM CDT [facility] % BASO 0.5 % 04/26/2024 10:13 AM CDT [facility] ABSOLUTE NEUTROPHILS 5.7 1.7 - 7.0 thou/cu mm 04/26/2024 10:13 AM CDT [facility] ABSOLUTE LYMPHOCYTES 2.2 0.9 - 2.9 thou/cu mm 04/26/2024 10:13 AM CDT [facility] ABSOLUTE MONOCYTES 0.8 <0.9 thou/cu mm 04/26/2024 10:13 AM CDT [facility] ABSOLUTE EOSINOPHILS 0.7(H) <0.5 thou/cu mm 04/26/2024 10:13 AM CDT [facility] ABSOLUTE BASOPHILS 0.1 <0.3 thou/cu mm 04/26/2024 10:13 AM CDT [facility] Blood BLOOD SPECIMEN / Unknown Venipuncture / Unknown 04/26/2024 9:45 AM CDT 04/26/2024 9:58 AM CDT Daphney Sun MD HEMATOLOGY [facility] [address] [place] [address], * (ABNORMAL) LIPID PANEL W REFLEX MEASURED LDL (04/26/2024 9:45 AM CDT) CHOLESTEROL,TOTAL 152 100 - 199 mg/dL 04/26/2024 5:38 PM CDT [facility] Comment: Cholesterol, Total Reference Ranges Desirable <200 mg/dL Borderline 200-239 mg/dL High >=240 mg/dL TRIGLYCERIDES 183(H) <150 mg/dL 04/26/2024 5:38 PM CDT [facility] HDL CHOLESTEROL 36(L) >40 mg/dL 5:38 PM CDT [facility] NON-HDL CHOLESTEROL 116 <145 mg/dl 04/26/2024 5:38 PM CDT [facility] CHOL/HDL RATIO 4.22 <4.50 04/26/2024 5:38 PM CDT [facility] LDL CHOLESTEROL 79 <=130 mg/dL 04/26/2024 5:38 PM CDT [facility] VLDL CHOLESTEROL 37(H) <=30 mg/dL 04/26/2024 5:38 PM CDT [facility] PROVIDER ORDERED STATUS RANDOM 04/26/2024 5:38 PM CDT [facility] Blood BLOOD SPECIMEN / Unknown Venipuncture / Unknown 04/26/2024 9:45 AM CDT 04/26/2024 9:58 AM CDT Daphney Sun MD CHEMISTRY Performing Organization Address City/[facility] Co de Phone Number [facility] [address] [place] [id number], [place] * ANTI HCV (04/26/2024 9:45 AM CDT) [facility] HEPATITIS C ANTIBODY Non-Reacti ve Non-React janel 04/26/2024 5:50 PM CDT [facility] Comment:Please note, per www .CDC.gov: If a patient is known to be at high risk of HCV infection, or is symptomatic, and the physician's suspicion of HCV infection is high, HCV RNA testing is often employed and is of diagnostic value, even after an initial negative anti-HCV test result. Blood BLOOD SPECIMEN / Unknown Venipuncture / Unknown 04/26/2024 9:45 AM CDT 04/26/2024 9:58 AM CDT Daphney Sun MD SEND OUTS Performing Organization Address [facility] Co de Phone Number [facility] [address] [place], [place] [phone], [place] * ANTI HIV 1/2 [54998.0] (04/26/2024 9:45 AM CDT) [facility] HIV-1/HIV-2 SCREEN Non-Reacti ve Non-Reacti ve 04/26/2024 5:18 PM CDT [facility] Comment:HIV-1 p24 and HIV-1/ HIV-2 Ab Not Detected. Blood BLOOD SPECIMEN / Unknown Venipuncture / Unknown 04/26/2024 9:45 AM CDT 04/26/2024 9:58 AM CDT Daphney Sun MD SEND OUTS Performing Organization Address City/[facility] Co de Phone Number [facility] [address] [place] [id number], [place] * (ABNORMAL) HEMOGLOBIN A1C MONITORING (POCT) (04/26/2024 9:45 AM CDT) [facility] HEMOGLOBIN A1C MONITORING (POCT) 7.5(H) <=6.4 % 04/26/2024 9:58 AM CDT [facility] Blood BLOOD SPECIMEN / Unknown Venipuncture / Unknown 04/26/2024 9:45 AM CDT 04/26/2024 9:58 AM CDT Narrative [facility] - 04/26/2024 9:58 AM CDT ? (<=6.9%) ? Indicates good control ? (7.0% to 7.9%) ? Indicates fair control ? (>=8.0%) ? Indicates poor control ?? NOTE: ??These thresholds are guidelines and ?individual targets may vary. Falsely low levels may be seen with: Recent Transfusion, Recent Significant Blood Loss, Hemolytic Diseases, or Falsely elevated levels may be seen with: Untreated Anemias, Splenectomy ? Daphney Sun MD CHEMISTRY [facility] [address] [place] [address], * (ABNORMAL) COMP METABOLIC PANEL (04/26/2024 9:45 AM CDT) SODIUM 137 136 - 145 mmol/L 04/26/2024 5:38 PM CDT [facility] POTASSIUM 4.9 3.5 - 5.1 mmol/L 04/26/2024 5:38 PM CDT [facility] CHLORIDE 100 98 - 107 mmol/L 04/26/2024 5:38 PM CDT [facility] CO2,TOTAL 25 22 - 29 mmol/L 04/26/2024 5:38 PM CDT [facility] ANION GAP 12 5 - 18 04/26/2024 5:38 PM CDT [facility] GLUCOSE 177(H) 70 - 99 mg/dL 04/26/2024 5:38 PM CDT [facility] CALCIUM 9.2 8.6 - 10.0 mg/dL 04/26/2024 5:38 PM CDT [facility] BUN 11 6 - 20 mg/dL 04/26/2024 5:38 PM CDT [facility] CREATININE 1.04 0.70 - 1.20 mg/dL 04/26/2024 5:38 PM T [facility] BUN/CREAT RATIO 11 10 - 20 5:38 PM T [facility] eGFR 87(L) >90 mL/min/1.7 3m2 04/26/2024 5:38 PM T [facility] Comment:As of 2021, eG FR is calculated by the CKD-EPI creatinine equation without race adjustment. ??eGFR can be influenced by muscle mass, exercise, and diet. ??The reported eGFR is an estimation only and is only applicable if the renal function is stable. ALBUMIN 4.3 4.0 - 4.9 g/dL 04/26/2024 5:38 PM CDT [facility] PROTEIN,TOTAL 7.2 6.0 - 8.0 g/dL 04/26/2024 5:38 PM T [facility] BILIRUBIN,TOTAL 0.4 0.0 - 1.2 mg/dL 04/26/2024 5:38 PM T [facility] ALK PHOSPHATASE 131(H) 40 - 129 IU/L 04/26/2024 5:38 PM CDT [facility] ALT (SGPT) 49 10 - 50 IU/L 04/26/2024 5:38 PM CDT [facility] AST (SGOT) 34 10 - 50 IU/L 04/26/2024 5:38 PM T [facility] Blood BLOOD SPECIMEN / Unknown Venipuncture / Unknown 04/26/2024 9:45 AM CDT 04/26/2024 9:58 AM CDT Daphney Sun MD CHEMISTRY [facility] [address] [place] [address], [place] from Last 3 Months Care Teams Loans Officer Relationship Specialty Start Date End Date Daphney Sun MD [address] [place] [address] PCP - General Family Practice 04/13/22 Gabby Narvaez [address] [place] [address] Mental Health Favor Maker Care Guide 05/02/24 Alyssa Perry Second Worker 05/04/24
[2024-06-12 08:59] LABS: Basophils Absolute Auto 0.04 K/uL (0.00-0.30); Basophils Percent Auto 0.4 % (0.0-3.0); Eosinophils Absolute Auto 0.52 K/uL (0.00-0.50); Eosinophils Percent Auto 5.2 % (0.0-7.0); Hematocrit 42.3 % (37.0-53.0); Hemoglobin* 13.9 gm/dL (13.5-17.5); Immature Granulocytes Abs Auto 0.03 K/uL (0.00-0.30); Immature Granulocytes Pct Auto 0.3 %; Mean Corpuscular HGB Conc 33 gm/dL (32-36); Mean Corpuscular Hemoglobin 28 pg (26-34); Mean Corpuscular Volume 86 fL (80-100); Monocytes Percent Auto 7.5 % (0.0-11.0); Neutrophils Absolute Auto 7.09 K/uL (1.7-7.0); Neutrophils Percent Auto 70.6 % (42.0-72.0); Platelet Count* 279 K/uL (140-440); RDW Coefficient of Variation % 12.8 % (11.5-15.5); Red Blood Count 4.91 m/uL (4.30-5.90); White Blood Count* 10.03 K/uL (4.50-11.00)
[2024-06-12 09:05] LABS: Slide Review Reflex No
[2024-06-12 09:15] LABS: Albumin* 4.2 g/dL (3.3-5.0)
[2024-06-12 09:16] LABS: Chloride* 102 mmol/L (96-114); Sodium* 134 mmol/L (135-149)
[2024-06-12 09:17] LABS: D Dimer Quantitative* 0.32 ug/ml (0.00-0.50)
[2024-06-12 09:18] LABS: Alkaline Phosphatase* 106 U/L (40-150); Aspartate Amino Transferase* 25 U/L (12-35); Bilirubin Direct* 0.2 mg/dL (0.0-0.5); Bilirubin Total* 0.4 mg/dL (0.1-1.5); Lipase* 85 U/L (23-300); Total Protein* 6.9 g/dL (6.0-8.3)
[2024-06-12 09:19] LABS: Alanine Aminotransferase* 38 U/L (4-50); Anion Gap 8 mEq/L (7-15); Blood Urea Nitrogen* 14 mg/dL (7-30); Carbon Dioxide* 24 mmol/L (20-32); Creatinine* 0.8 mg/dL (0.5-1.5); Est. Creatinine Clearance* 105.69; Estimated Glomerular Filt Rate 107 ml/min; Glucose* 206 mg/dL (60-115)
[2024-06-12 09:20] LABS: Calcium* 8.9 mg/dL (8.4-10.6)
[2024-06-12 09:28] LABS: NT Pro B Type NatriureticPept* 65 pg/mL
[2024-06-12 09:46] LABS: PCR FLU A Negative PCR FLU A (Negative); PCR FLU B Negative PCR FLU B (Negative); PCR RSV Negative PCR RSV (Negative); SARS PCR* Negative SARS-CoV-2 (Negative)
--- NOTE | 2024-06-12 13:34 | ED.GENADULT ---
HPI - General Adult General Date Seen: 06/12/24 Chief complaint: Chest Pain Stated complaint: Chest pain, shortness of breath Time Seen by Provider: 06/12/24 08:09 Source: patient Mode of arrival: ambulatory Limitations: no limitations History of Present Illness HPI narrative: Patient is a 53-year-old male who presents for evaluation of chest pain. He has been having chest pain on and off he says for the past week but more so over the past day or 2. He says he will get a kind of clutching sensation in his chest at random times that will last a minute or 2. He called the clinic to be seen in clinic and they recommended that he come to the ER. He does have a history of diabetes, he takes metformin and notes that he forgot to take it this morning. He does not have a history of any heart problems that he is aware of. He smokes marijuana throughout the day and smells strongly of marijuana at present. He has not had fevers or cough, denies lower extremity swelling or pain. Chest pain has not been exertional. He does not have any chest pain right now. He does note that he has a history of gastritis, he does not take anything for that but would be interested in starting something. He would also like a note for work as he was supposed to be at work today. He denies tobacco use or significant alcohol use. Denies other medical history. No allergies. Related Data Previous Rx's ?Medication ?Instructions ?Recorded metformin 500 mg tablet 500 mg PO DAILY #10 tabs 12/16/22 fluticasone propionate 50 2 spray intranasal QDAY #16 grams 01/13/24 mcg/actuation nasal spray,suspension guaifenesin 600 mg tablet, 600 - 1,200 mg (1 - 2 x 600 mg) PO 01/13/24 extended release 12 hr BID #30 tabs ketotifen fumarate 0.025 % (0.035 1 drp ophthalmic (eye) BID #5 mL 01/13/24 %) eye drops levocetirizine 5 mg tablet 5 mg PO QPM #30 tabs 01/13/24 omeprazole 40 mg capsule,delayed 40 mg PO DAILY #30 caps 06/12/24 release Allergies Allergy/AdvReac Type Severity Reaction Status Date / Time No Known Drug Allergies Allergy Verified 01/13/24 18:11 Review of Systems Status of ROS: Reports: 10 or more systems reviewed and unremarkable except as noted in History and below [facility] Social History Smoking Status: Former smoker What tobacco products do you use: cigarettes Smoking quit date/years: <= 15 years ago Do you use any of these nicotine containing products: None and Vaping Products Second hand tobacco smoke exposure: Yes How often do you have a drink containing alcohol: monthly or less How many standard drinks containing alcohol do you have on a typical day: 5 or 6 How often do you have six or more drinks on one occasion: Less than monthly AUDIT-C Alcohol total score: 4 Non-prescribed substance use: marijuana (any form) Non-prescribed substance use details: smokes weed everyday service: No Exam Narrative: Exam Narrative: Vital signs as noted above. In general, an alert, well-appearing patient. Head: Normocephalic, atraumatic. Eyes: Pupils are equal reactive. Extraocular movements are full. Conjunctivae are normal. ENT: Mucous membranes are moist. Throat is normal. Neck: Supple without lymphadenopathy. Heart: Regular rate and rhythm. No murmur or rub. Lungs: Clear bilaterally. No increased work of breathing, crackles or wheezes. Abdomen: Soft and nontender. No organomegaly. Extremities: Well perfused. No edema. No calf tenderness. Pulses intact. Neurologic: Patient is alert and oriented to person and place. Speech is fluent. Face is symmetric. Moves all extremities equally. Affect: Normal. Skin: Warm and dry. Well perfused. Const: Vital Signs, click to edit/add: Vital Signs - 24 hr 06/12/24 08:08 06/12/24 08:55 06/12/24 09:00 Temperature 96.4 F L Pulse Rate 76 77 Pulse Rate [Pulse Oximeter] 83 Respiratory Rate 18 Blood Pressure Blood Pressure [Le ft Upper Arm] 122/79 Pulse Oximetry 96 95 94 Oxygen Delivery Me thod Room Air 06/12/24 09:01 06/12/24 09:15 06/12/24 09:30 Temperature Pulse Rate 77 73 78 Pulse Rate [Pulse Oximeter] Respiratory Rate Blood Pressure 120/82 Blood Pressure [Le ft Upper Arm] Pulse Oximetry 96 94 96 Oxygen Delivery Me thod 06/12/24 09:32 06/12/24 09:45 06/12/24 10:00 Temperature Pulse Rate 71 67 80 Pulse Rate [Pulse Oximeter] Respiratory Rate Blood Pressure 125/85 Blood Pressure [Le ft Upper Arm] Pulse Oximetry 96 95 98 Oxygen Delivery Me thod 06/12/24 10:03 06/12/24 10:32 06/12/24 11:04 Temperature Pulse Rate 66 Pulse Rate [Pulse Oximeter] Respiratory Rate Blood Pressure 129/86 119/77 136/106 H Blood Pressure [Le ft Upper Arm] Pulse Oximetry 98 Oxygen Delivery Me thod Documenting provider has reviewed patient's vital signs: yes Course Course ED Course: On arrival, patient had an EKG which by my review showed a normal sinus rhythm, ventricular rate of 75. No acute ST segment changes. Unremarkable T-waves. I ordered a chest x-ray which by my review did not show any acute findings. Final radiology read as follows:Patient: LOU GONZALEZWSTER Facility: [facility] . Site : [id number] Study: XRay-Chest PORTABLE-06/12/2024 8:45:04 AM Ordering Physician: José Miguel Pierre Final Report: INDICATION: COUGH, SOB TECHNIQUE: Chest 1 view COMPARISON: 05/19/2023 FINDINGS: Cardiovascular and mediastinum: Heart size and vasculature are normal in caliber and appearance. Lungs and pleural spaces: Lungs are clear. No sign of infiltrate or mass. No sign of pleural effusion. No pneumothorax. Bones and soft tissues: No significant findings. IMPRESSION: No acute findings. Dictated by Dawson Justice MD @ 06/12/2024 8:46:22 AM (Electronic Signature) Diagnostic considerations would include acute coronary syndrome or angina, pulmonary embolism, cannot rule out by PERC criteria, pneumonia, pleural effusion, musculoskeletal pain, gastritis or gastroesophageal reflux, biliary colic among others. Labs are notable for a normal white blood cell count of 10 and hemoglobin of 13.9. D-dimer was normal at 0.32, I think this can effectively rule out pulmonary embolism in this low risk patient. Metabolic panel was normal, glucose was 206. LFTs were normal, BNP was 65. Lipase of 85. COVID influenza and RSV were all negative. Initial point of care troponin was 0, repeat was 0. This was at 2-1/2 hours. He is ambulatory around the emergency department, feeling well without current complaints. Reviewed with him that the tests we have done today I think effectively rule out an acute heart attack but do not answer the question of whether not he might have heart disease. Would recommend primary care follow-up to discuss possible stress test as an outpatient. I have also started him on Prilosec given his stated problems with gastritis. He is aware that his heavy marijuana use may be detrimental, he says he just has never been able to stop. Return any time for persistent severe symptoms new symptoms such as shortness of breath, vomiting, fainting, fevers etcetera. Vital Signs Vital signs: Initial Vital Signs Temperature 96.4 F L 06/12/24 08:08 Temperature Source Temporal Artery Scan 06/12/24 08:08 Pulse Rate 83 06/12/24 08:08 Respiratory Rate 18 06/12/24 08:08 Blood Pressure 122/79 06/12/24 08:08 Blood Pressure Mean 93 06/12/24 08:08 Blood Pressure Position Sitting 06/12/24 08:08 Pulse Oximetry 96 06/12/24 08:08 Oxygen Delivery Method Room Air 06/12/24 08:08 Vital Signs Temperature 96.4 F L 06/12/24 08:08 Pulse Rate 83 06/12/24 08:08 Respiratory Rate 18 06/12/24 08:08 Blood Pressure 122/79 06/12/24 08:08 Pulse Oximetry 96 06/12/24 08:08 Oxygen Delivery Method Room Air 06/12/24 08:08 Temperature 96.4 F L 06/12/24 08:08 Pulse Rate 66 06/12/24 10:03 Respiratory Rate 18 06/12/24 08:08 Blood Pressure 136/106 H 06/12/24 11:04 Pulse Oximetry 98 06/12/24 10:03 Oxygen Delivery Method Room Air 06/12/24 08:08 Medical Decision Making Lab Data Labs: Lab Results 06/12/24 06/12/24 06/12/24 Range/Units 08:45 08:49 11:13 WBC 10.03 (4.50-11.00) K/uL RBC 4.91 (4.30-5.90) m/uL Hgb 13.9 (13.5-17.5) gm/dL Hct 42.3 (37.0-53.0) % MCV 86 (80-100) fL MCH 28 (26-34) pg MCHC 33 (32-36) gm/dL RDW Coeff of Emma 12.8 (11.5-15.5) % Plt Count 279 (140-440) K/uL Neut % (Auto) 70.6 (42.0-72.0) % Lymph % (Auto) 16.0 L (20-44) % Whiteside % (Auto) 7.5 (0.0-11.0) % Eos % (Auto) 5.2 (0.0-7.0) % Baso % (Auto) 0.4 (0.0-3.0) % Neut # (Auto) 7.09 H (1.7-7.0) K/uL Lymph # (Auto) 1.60 (0.90-2.90) K/uL Whiteside # (Auto) 0.80 (0.00-0.90) K/UL Eos # (Auto) 0.52 H (0.00-0.50) K/uL Baso # (Auto) 0.04 (0.00-0.30) K/uL Abs Immat Gran (auto) 0.03 (0.00-0.30) K/uL Imm/Tot Granulo (auto) 0.3 % D-Dimer Quant (PE/DVT) 0.32 (0.00-0.50) ug/ml Sodium 134 L (135-149) mmol/L Potassium 4.0 (3.6-5.1) mmol/L Chloride 102 (96-114) mmol/L Carbon Dioxide 24 (20-32) mmol/L Anion Gap 8 (7-15) mEq/L BUN 14 (7-30) mg/dL Creatinine 0.8 (0.5-1.5) mg/dL Estimated Creat Clear 105.69 Estimated GFR 107 ml/min Glucose 206 H (60-115) mg/dL Calcium 8.9 (8.4-10.6) mg/dL Total Bilirubin 0.4 (0.1-1.5) mg/dL Direct Bilirubin 0.2 (0.0-0.5) mg/dL AST 25 (12-35) U/L ALT 38 (4-50) U/L Alkaline Phosphatase 106 (40-150) U/L NT-Pro-B Natriuret Pep 65 pg/mL Total Protein 6.9 (6.0-8.3) g/dL Albumin 4.2 (3.3-5.0) g/dL Lipase 85 (23-300) U/L SARS-CoV-2 (PCR) Negative SARS-CoV-2 (Negative) Influenza Type A (PCR) Negative PCR FLU A (Negative) Influenza Type B (PCR) Negative PCR FLU B (Negative) RSV (PCR) Negative PCR RSV (Negative) POC Troponin I 0.00 L 0.00 L (0.01-0.04) ng/ml Discharge Plan Discharge Clinical Impression: Chest pain, Gastritis Patient Disposition: Home, Self-Care Condition: Stable Instructions: Chest Pain (DC), Gastritis (DC) Additional Instructions: Tests of your heart and lungs today are normal. Am going to prescribe a medication to help with gastritis. Sometimes gastroesophageal reflux can cause chest pain, so this is 1 possibility. However, I would recommend that you follow-up with your regular clinic to discuss possible further testing in the form of a stress test. Today's testing does not show any evidence of heart attack, but we have not entirely ruled out the possibility of heart disease. Stress test would be the next test to evaluate for this. If at any time you have severe persistent pain, vomiting, fainting, or other worsening, return to the emergency department. Prescriptions: New omeprazole 40 mg capsule,delayed release(DR/EC) 40 mg PO DAILY Qty: 30 3RF No Action levocetirizine 5 mg tablet 5 mg PO QPM Qty: 30 0RF fluticasone propionate 50 mcg/actuation spray,suspension 2 spray intranasal QDAY Qty: 16 0RF Rx Instructions: administer into each nostril ketotifen fumarate 0.025 % (0.035 %) drops 1 drp ophthalmic (eye) BID Qty: 5 0RF Rx Instructions: administer at least 8 hours apart guaifenesin 600 mg tablet extended release 12hr 600 - 1,200 mg PO BID Qty: 30 0RF metformin 500 mg tablet 500 mg PO DAILY Qty: 10 2RF Follow Up/Referrals: Elda Grijalva PA-C [Primary Care Provider] - Stand Alone Forms: [facility] Info Instructions
== END 2024-06-12 12:27 | disposition home or self-care (01) ==
PROVIDERS: Emergency Provider Emergency Medicine; PCP Physician Assistant Surgical
DX: R07.9 Chest pain, unspecified (principal); K29.70 Gastritis, unspecified, without bleeding
CPT/HCPCS: 36415; 71045; 80048; 80076; 83690; 83880; 84484; 85025; 85379; 87631; 93005; 96374; 99284; 99285

== ENCOUNTER 2024-10-21 12:30 | Emergency (ER) | payer MEDICAID, SELFPAY ==
[2024-10-21] VITALS (11 sets, daily range): BP systolic 122–142; BP diastolic 78–91; PULSE 79–93; RESP 18; TEMP 36.2; O2SAT 95–97; BMI 36.5
--- OUTSIDE RECORDS SUMMARY | 2024-10-21 12:32 | XMS_ITS | Clinical Summary ---
Author Organization [facility] Address [place], [place] [address] Care Team Providers Care Cement Despatch Operator Name Role Phone Daphney Sun MD Primary Care Provider [phone] Allergies No known active allergies Medications Accu-Chek Softclix Lancets 3 Active Accu-Chek Guide Me Glucose Mtr 3 Active Accu-Chek Guide test strips strip 3 Active cyclobenzaprine (FLEXERIL) 10 mg tabletIndications: Muscle spasm of back,Chronic bilateral low back pain without sciatica Take 1 Tablet (10 mg) by mouth 3 times daily if needed for Muscle Spasm. 30 Tablet 4 Active metFORMIN (GLUCOPHAGE XR) 500 mg Extended-Release tabletIndications: Type 2 diabetes mellitus without complication, without long-term current use of insulin (HC) Take 2 Tablets (1,000 mg) by mouth two times daily with meals. 360 Tablet 4 4 Active omeprazole 20 mg tabletIndications: Chronic GERD Take 1 Tablet (20 mg) by mouth once daily before a meal. 100 Tablet 3 4 Active ondansetron (ZOFRAN ODT) 4 mg disintegrating tabletIndications: Vomiting and diarrhea Place 1 Tablet (4 mg) on the tongue every 8 hours if needed for Nausea/Vomi ting. 25 Tablet 4 Active melatonin 3 mg tabletIndications: Insomnia due to mental condition Take 1 Tablet (3 mg) by mouth at bedtime. 4 Active famotidine (PEPCID) 20 mg tabletIndications: Gastroesophageal reflux disease, unspecified whether esophagitis present Take 1 Tablet (20 mg) by mouth 2 times daily if needed for Heartburn. 60 Tablet 4 Active ARIPiprazole (ABILIFY) 2 mg tabletIndications: Major depressive disorder, recurrent severe without psychotic features (HC),Posttraumatic stress disorder Take 1 Tablet (2 mg) by mouth once daily. 90 Tablet 3 5 09/25/19 26 Active ARIPiprazole (ABILIFY) 2 mg tabletIndications: Major depressive disorder, recurrent severe without psychotic features (HC),Posttraumatic stress disorder Take 0.5 Tablets (1 mg) by mouth once daily for 7 days, THEN 1 Tablet (2 mg) once daily. 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 dreams, memory and depression the same. Headache-sharp and painful for past 3 days) 10/03/2024 Travel 09/28/2024 Telephone [facility] [address] [place] [address] Juan Shell MD Late Cancel Appointment (09/29/2024 @12:30PM ) 09/25/2024 1:30 PM MOLDED GRID AND PARTS INSPECTOR Office Visit [facility] [address] [place] [address] Juan Shell MD Medication Management (forgetting a lot of things, trouble with concentration and recall) 09/25/2024 Telephone [facility] [address] [place] [address] Juan Shell MD Questions 09/25/2024 Travel 09/04/2024 1:00 PM MOLDED GRID AND PARTS INSPECTOR Office Visit [facility] [address] [place] [address] Juan Shell MD Medication Management (stated he stopped breathing taking minipress, so he stopped taking it after 2 doses) 09/04/2024 Travel 08/27/2024 5:07 PM MOLDED GRID AND PARTS INSPECTOR - 08/27/2024 5:50 PM [place] [id number] [place] [address] Stevie Lin PA Gastroesophageal reflux disease, unspecified whether esophagitis present (Primary Dx) Discharge Disposition: Home Self Care 08/27/2024 Travel 08/18/2024 Patient Outreach [address] [address] Gabby Narvaez Care Coordination (discharged) 08/14/2024 9:30 AM MOLDED GRID AND PARTS INSPECTOR Office Visit [facility] [address] [place] [address] Juan Shell MD Mental Health Intake (haunting dream, a lot of depression) 08/14/2024 Travel 08/09/2024 6:26 PM MOLDED GRID AND PARTS INSPECTOR - 08/09/2024 8:[address] [address] Stevie Baca MD Vomiting and diarrhea (Primary Dx) Discharge Disposition: Home Self Care 08/09/2024 Travel 08/07/2024 Telephone [facility] [address] [place] [address] Juan Shell MD Pre-Visit Intake 08/01/2024 Patient Outreach [address] [address] Gabby Narvaez Care Coordination from Last 3 Months Immunizations Name Administration Dates Next Due COVID-19 VACCINE SPIKEVAX (M ODERNA 50MCG/0.5ML) 12YO+ PFS 06/30/2023 COVID-19 vaccine (Nayely-J&J) PF, MDV COVID-19 vaccine (Pfizer-Bio NTech 30mcg/0.3mL) 12YO+ BIVALENT PF, MDV 06/25/2022 Influenza, IIV4 06/30/2023,06/25/2022 Pneumococcal Conj 20-valent (Prevnar 20) 022 Tdap 06/25/2022 Social History Tobacco Use Types Packs/Day Years Used Date Smoking Tobacco: Former Cigarettes Smokeless Tobacco: Never Tobacco Cessation:Counseling Given: Not Answered Alcohol Use Standard Drinks/Week Comments Not Currently 0 (1 standard drink = 0.6 oz pur e alcohol) last in 2020 PHQ-2 Answer Date Recorded PHQ-2 TOTAL SCORE 5 10/03/2024 Interpersonal Safety Answer Date Record ed Are you being hit, kicked, p ushed or yelled at (see row info)? No 08/27/2024 Interpersonal Safety Abuse - 18 Not on file 08/27/2024 Interpersonal Safety Ambulatory Vulnerability No t on file 08/27/2024 Education Answer Date Recorded What is the highest level of school you have completed or the highest degree you have received? 5th grade 08/14/2024 Sex and Gender Information Value Date Recorded Sex Assigned at Not on file Legal Sex Male 3:19 PM CDT Gender Identity Not on file Sexual Orientation Not on file Obstetrics History Last Filed Vital Signs Vital Sign Reading Time Taken Comments Blood Pressure 126/67 10/03/2024 2:06 PM MOLDED GRID AND PARTS INSPECTOR Pulse 79 10/03/2024 2:06 PM MOLDED GRID AND PARTS INSPECTOR Temperature 36.5 C (97.7 F) 08/27/2024 5:11 PM MOLDED GRID AND PARTS INSPECTOR Respiratory Rate 18 08/27/2024 5:11 PM MOLDED GRID AND PARTS INSPECTOR Oxygen Saturation 97% 08/27/2024 5:11 PM MOLDED GRID AND PARTS INSPECTOR Inhaled Oxygen Concentration - - Weight 114.3 kg (252 lb) 10/03/2024 2:06 PM MOLDED GRID AND PARTS INSPECTOR Height 172.7 cm (5' 8) 08/27/2024 5:11 PM MOLDED GRID AND PARTS INSPECTOR Body Mass Index 38.32 08/27/2024 5:11 PM MOLDED GRID AND PARTS INSPECTOR Plan of Treatment Upcoming Encounters Date Type Department Care Team (Late st Contact Info) Description 11/10/2024 9:00 AM MOLDED GRID AND PARTS INSPECTOR Office Visit [facility] [address] [place] [address] Juan Shell MD [address] [place] [address] 11/14/2024 11:00 AM MOLDED GRID AND PARTS INSPECTOR Office Visit [facility] [address] [place] [phone] Júnior Peters, Mehrdad, LP [address] [place] [address] 02/23/2025 8:00 AM CDT Office Visit [facility] [address] [place] [address] Marguerite Otero, PhD, LP [address] [place] [address] Health Maintenance Due Date Last Done Comments Hepatitis B series for Diabe hugo (1 of 3 - 19+ 3-dose series) 1991 Colonoscopy through age 75 2017 Zoster (shingles) series for age 50+ (1 of 2) 2022 COVID-19 vaccine series ( season) 2024 06/30/2023, 06/25/2022, 02/12/2021 Influenza for age 50-64 05/14/2024 06/30/2023, 06/25 BMI (ht and wt on same day) for age 18+ 08/14/2025 08/14/2024, 03/27/2022 Depression screening for age 12+ 10/03/2025 10/03/2024, 09/04/2024, 08/14/2024, Additional history exists Lipids for age 45-75 04/26/2029 04/26/2024, 12/26/19 Tetanus booster 06/25/2032 06/25/2022 Pneumococcal series for age 50+ Completed Tdap Completed 06/25/2022 HIV for age 15-65 Completed 04/26/2024 Hepatitis C screening for ag e 18-79 Completed 04/26/2024 Procedures Procedure Name Priority Date/Time Associated Diagnosis Comments GLUCOSE METER Routine 08/27/2024 5:09 PM MOLDED GRID AND [employer]S [employer]PECTOR CT ABDOMEN PELVIS W STAT 08/09/2024 8:01 PM MOLDED GRID AND PARTS INSPECTOR EKG 12 LEAD STAT 08/09/2024 7:02 PM MOLDED GRID AND PARTS INSPECTOR HEPATIC FUNCTION PANEL STAT 08/09/2024 6:53 PM MOLDED GRID AND PARTS INSPECTOR LIPASE STAT 08/09/2024 6:53 PM MOLDED GRID AND PARTS INSPECTOR TROPONIN T (HS) ACUTE W/2HR REFLEX STAT 08/09/2024 6:53 PM MOLDED GRID AND PARTS INSPECTOR BASIC METABOLIC PANEL STAT 08/09/2024 6:53 PM MOLDED GRID AND PARTS INSPECTOR CBC W PLT NO DIFF STAT 08/09/2024 6:5 2 PM MOLDED GRID AND PARTS INSPECTOR ANTI HIV 1/2 Routine 04/26/2024 9:45 AM CDT Screening for HIV (human immunodeficiency virus) ANTI HCV Routine 04/26/2024 9:45 AM CDT Need for hepatitis C screening test LIPID PANEL W REFLEX MEASURED LDL Routine 04/26/2024 9:45 AM CDT Type 2 diabetes mellitus without complication, without long-term current use of insulin (HC) from Last 3 Months or Most Recently Relevant to Health Maintenance Results * (ABNORMAL) GLUCOSE METER (08/27/2024 5:09 PM MOLDED GRID AND PARTS INSPECTOR) Pathologist [facility] GLUCOSE METER 102(H) 65 - 100 mg/dL 08/28/2024 12:16 AM MOLDED GRID AND PARTS INSPECTOR [facility] Blood BLOOD SPECIMEN / Unknown 08/27/2024 5:09 PM MOLDED GRID AND PARTS INSPECTOR 08/28/2024 12:16 AM MOLDED GRID AND PARTS INSPECTOR Doctor Unknown CHEMISTRY Final Result [facility] [address] [phone] * CT Abdomen Pelvis w IV (Oral Contrast NO) (08/09/2024 8:01 PM MOLDED GRID AND PARTS INSPECTOR) Anatomical Region Laterality Modality Abdomen, Pelvis, AORTA, LIVER, SPLEEN Computed Tomography Stevie Baca MD CT Aruna l Result * EKG 12 LEAD (08/09/2024 7:02 PM MOLDED GRID AND PARTS INSPECTOR) Pathologist [facility] Interpretation Sinus rhythm with marked sinus arrhythmia Otherwise normal ECG No previous ECGs available BEYOND NOW Ventricular Rate 75 BPM BEYOND NOW Atrial Rate 75 BPM BEYOND NOW P-R Interval 172 ms BEYOND NOW QRS Duration 98 ms BEYOND NOW QT 360 ms BEYOND NOW QTc 402 ms BEYOND NOW P Crane 77 degrees BEYOND NOW R Crane 78 degrees BEYOND NOW T Crane 67 degrees BEYOND NOW 08/09/2024 7:02 PM MOLDED GRID AND PARTS INSPECTOR 08/10/2024 3:09 PM MOLDED GRID AND PARTS INSPECTOR Stevie Baca MD EKG ORD Edit ed Result - Final BEYOND NOW [place], [place] * TROPONIN T (HS) ACUTE W/2HR REFLEX (08/09/2024 6:53 PM MOLDED GRID AND PARTS INSPECTOR) Pathologist [facility] TROPONIN T HS <6 6-15 ng/L ng/L 08/09/2024 7:19 PM MOLDED GRID AND PARTS INSPECTOR [facility] Blood BLOOD SPECIMEN / Unknown Venipuncture / Unknown 08/09/2024 6:53 PM MOLDED GRID AND PARTS INSPECTOR 08/09/2024 6:55 PM MOLDED GRID AND PARTS INSPECTOR Narrative [facility] - 08/09/2024 7:19 PM MOLDED GRID AND PARTS INSPECTOR hs-cTnT (Elecsys Troponin T Gen 5) concentration (s) above the sex-specific 99th percentile (16 ng/L or greater for males or 11 ng/L or greater for females) are indicative of myocardial injury. If initial hs-cTnT <=100 ng/L at presentation, a 0h/2h ABSOLUTE (ng/L) delta change (rising or falling) of >=10 ng/L suggests a significant change, whereas a 0h/2h delta change <=3 ng/L suggests no significant change. If initial hs-cTnT >100 ng/L at presentation, a 0h/2h/ RELATIVE (percent, %) delta change of 20% is suggested to distinguish patients with acute vs. chronic myocardial injury. There are multiple etiologies that can cause hs-cTnT increases above the 99th percentile (myocardial injury) other than acute myocardial infarction. Clinical context and careful clinical evaluation are critical for diagnosis and risk-stratification. The diagnosis of acute myocardial infarction requires a rising and/or falling pattern in hs-cTnT concentrations with at least one value above the sex-specific 99th percentile PLUS at least one of the following clinical criteria: ischemic symptoms, new or presumed new significant ST-T wave changes or new LBBB, development of pathological Q waves, imaging evidence of new loss of viable myocardium or new regional wall motion abnormality, or identification of intracoronary atherothrombosis or an acute angiographic culprit on coronary angiography. In appropriate low-risk patients with a non-ischemic electrocardiogram without active chest pain with a symptom onset >3-hours without recurrence, a single initial hs-cTnT<6 ng/L identifies patient with a very low risk in emergency department patient population. Stevie Baca MD CHEMISTRY Aruna l Result [facility] [address] [phone] * LIPASE (08/09/2024 6:53 PM MOLDED GRID AND PARTS INSPECTOR) LIPASE 50.9 13.0 - 60.0 IU/L 08/09/2024 7:19 PM MOLDED GRID AND PARTS INSPECTOR [facility] Blood BLOOD SPECIMEN / Unknown Venipuncture / Unknown 08/09/2024 6:53 PM MOLDED GRID AND PARTS INSPECTOR 08/09/2024 6:55 PM MOLDED GRID AND PARTS INSPECTOR Stevie Baca MD CHEMISTRY Aruna l Result [facility] [address] [phone] * (ABNORMAL) HEPATIC FUNCTION PANEL (08/09/2024 6:53 PM MOLDED GRID AND PARTS INSPECTOR) ALBUMIN 4.2 4.0 - 4.9 g/dL 08/09/2024 7:19 PM [facility] PROTEIN,TOTAL 6.9 6.0 - 8.0 g/dL 08/09/2024 7:19 PM [facility] BILIRUBIN,TOTAL 0.3 0.0 - 1.2 mg/dL 08/09/2024 7:19 PM [facility] BILIRUBIN,DIRECT 0.2 0.0 - 0.2 mg/dL 08/09/2024 7:19 PM [facility] BILIRUBIN,INDIRE CT 0.1(L) 0.2 - 0.8 mg/dL 08/09/2024 7:19 PM [facility] ALK PHOSPHATASE 113 40 - 129 IU/L 08/09/2024 7:19 PM [facility] ALT (SGPT) 83(H) 10 - 50 IU/L 08/09/2024 7:19 PM [facility] AST (SGOT) 39 10 - 50 IU/L 08/09/2024 7:19 PM [facility] Blood BLOOD SPECIMEN / Unknown Venipuncture / Unknown 08/09/2024 6:53 PM MOLDED GRID AND PARTS INSPECTOR 08/09/2024 6:55 PM MOLDED GRID AND PARTS INSPECTOR us Stevie Baca MD CHEMISTRY Aruna l Result Performing Organization Address City/[facility]/ZIP Co de Phone Number [facility] [address] [phone] * (ABNORMAL) BASIC METABOLIC PANEL (08/09/2024 6:53 PM MOLDED GRID AND PARTS INSPECTOR) SODIUM 139 136 - 145 mmol/L 08/09/2024 7:19 PM [facility] POTASSIUM 3.8 3.5 - 5.1 mmol/L 08/09/2024 7:19 PM [facility] CHLORIDE 103 98 - 107 mmol/L 08/09/2024 7:19 PM [facility] CO2,TOTAL 22 22 - 29 mmol/L 08/09/2024 7:19 PM [facility] ANION GAP 14 5 - 18 08/09/2024 7:19 PM [facility] GLUCOSE 127(H) 70 - 99 mg/dL 08/09/2024 7:19 PM [facility] CALCIUM 9.0 8.8 - 10.4 mg/dL 08/09/2024 7:19 PM [facility] Comment: Reference ranges for this test were updated on 07/18/2024 to reflect our healthy population more accurately. Reference range changes are not retroactively applied to results, but previous results using the same methodology can be interpreted in the context of the new reference range. BUN 14 6 - 20 mg/dL 08/09/2024 7:19 PM [facility] CREATININE 1.09 0.70 - 1.20 mg/dL 08/09/2024 7:19 PM [facility] BUN/CREAT RATIO 13 10 - 20 7:19 PM [facility] eGFR 82(L) >90 mL/min/1.7 3m2 08/09/2024 7:19 PM [facility] Comment:As of 2021, eG FR is calculated by the CKD-EPI creatinine equation without race adjustment. eGFR can be influenced by muscle mass, exercise, and diet. The reported eGFR is an estimation only and is only applicable if the renal function is stable. Blood BLOOD SPECIMEN / Unknown Venipuncture / Unknown 08/09/2024 6:53 PM MOLDED GRID AND PARTS INSPECTOR 08/09/2024 6:55 PM MOLDED GRID AND PARTS INSPECTOR us Stevie Baca MD CHEMISTRY Aruna bermeo Result [facility] [address] [place] [phone] * (ABNORMAL) CBC W PLT NO DIFF (08/09/2024 6:52 PM MOLDED GRID AND PARTS INSPECTOR) WHITE BLOOD COUNT 9.1 4.5 - 11.0 thou/cu mm 08/09/2024 6:58 PM [facility] RED BLOOD COUNT 4.64 4.30 - 5.90 mil/cu mm 08/09/2024 6:58 PM [facility] HEMOGLOBIN 13.4(L) 13.5 - 17.5 g/dL 08/09/2024 6:58 PM [facility] HEMATOCRIT 39.3 37.0 - 53.0 % 08/09/2024 6:58 PM [facility] MCV 85 80 - 100 fL 08/09/2024 6:58 PM [facility] MCH 28.9 26.0 - 34.0 pg 08/09/2024 6:58 PM [facility] MCHC 34.1 32.0 - 36.0 g/dL 08/09/2024 6:58 PM [facility] RDW 13.1 11.5 - 15.5 % 08/09/2024 6:58 PM [facility] PLATELET COUNT 289 140 - 440 thou/cu mm 08/09/2024 6:58 PM [facility] MPV 8.6 6.5 - 11.0 fL 08/09/2024 6:58 PM [facility] Blood BLOOD SPECIMEN / Unknown Venipuncture / Unknown 08/09/2024 6:52 PM MOLDED GRID AND PARTS INSPECTOR 08/09/2024 6:55 PM [facility] - 08/09/2024 6:58 PM MOLDED GRID AND PARTS INSPECTOR RN to order if patient presents with anterior chest pain, consistent with angina. us Stevie Baca MD HEMATOLOGY Aruna l Result [facility] [address] [place] [phone] * (ABNORMAL) LIPID PANEL W REFLEX MEASURED LDL (04/26/2024 9:45 AM CDT) CHOLESTEROL,TOTAL 152 100 - 199 mg/dL 04/26/2024 5:38 PM CDT [facility] Comment: Cholesterol, Total Reference Ranges Desirable <200 mg/dL Borderline 200-239 mg/dL High >=240 mg/dL TRIGLYCERIDES 183(H) <150 mg/dL 04/26/2024 5:38 PM CDT [facility] HDL CHOLESTEROL 36(L) >40 mg/dL 5:38 PM CDT [facility] NON-HDL CHOLESTEROL 116 <145 mg/dl 04/26/2024 5:38 PM CDT [facility] CHOL/HDL RATIO 4.22 <4.50 04/26/2024 5:38 PM CDT [facility] LDL CHOLESTEROL 79 <=130 mg/dL 04/26/2024 5:38 PM CDT [facility] VLDL CHOLESTEROL 37(H) <=30 mg/dL 04/26/2024 5:38 PM CDT [facility] PROVIDER ORDERED STATUS RANDOM 04/26/2024 5:38 PM CDT [facility] Blood BLOOD SPECIMEN / Unknown Venipuncture / Unknown 04/26/2024 9:45 AM CDT 04/26/2024 9:58 AM CDT us Daphney Sun MD CHEMISTRY Final Resul t [facility] [address] [place] [address], * ANTI HCV (04/26/2024 9:45 AM CDT) HEPATITIS C ANTIBODY Non-Reacti ve Non-React janel 04/26/2024 5:50 PM CDT [facility] Comment:Please note, per www .CDC.gov: [...] 9:45 AM CDT 04/26/2024 9:58 AM CDT us Daphney Sun MD SEND OUTS Final Resul t Performing Organization Address [facility] Co de Phone Number [facility] [address] [place] [phone], * ANTI HIV 1/2 [48952.0] (04/26/2024 9:45 AM CDT) HIV-1/HIV-2 SCREEN Non-Reacti ve Non-Reacti ve 04/26/2024 5:18 PM CDT [facility] Comment:HIV-1 p24 and HIV-1/ HIV-2 Ab Not Detected. Blood BLOOD SPECIMEN / Unknown Venipuncture / Unknown 04/26/2024 9:45 AM CDT 04/26/2024 9:58 AM CDT us Daphney Sun MD SEND OUTS Final Resul t Performing Organization Address [facility] de Phone Number [facility] [address] [place] [address], from Last 3 Months or Most Recently Relevant to Health Maintenance Insurance [facility] Care Teams Cement Despatch Operator Relationship Specialty Start Date End Date Daphney Sun MD [address] [place] [address] PCP - General Family Practice 04/13/22
--- NOTE | 2024-10-21 12:50 | CRLHL7_ITS ---
For Patients: As a result of the Century Cures Act, medical imaging exams and procedure reports are released immediately into your electronic medical record. You may view this report before your referring provider. If you have questions, please contact your health care provider. INDICATION: Headache, vomiting COMPARISON: none TECHNIQUE: A CT volumetric acquisition was performed of the brain without IV contrast. Please note that all CT scans at this facility use dose modulation, iterative reconstruction, and/or weight-based dosing when appropriate to reduce radiation dose to as low as reasonably achievable. FINDINGS: The CT images reveal a normal appearance of the cerebral ventricles and basal cisterns. There is no evidence of intracranial hemorrhage, tissue infarction or mass effect. The mastoid air cells and middle ear cavities are clear. The calvarium appears intact. There is normal aeration of the visualized paranasal sinuses. IMPRESSION: Negative head CT. Please note that all CT scans at this facility use dose modulation, iterative reconstruction, and/or weight-based dosing when appropriate to reduce radiation dose to as low as reasonably achievable. Dictated by Dawson Justice MD @ 10/21/2024 2:08:51 PM (Electronically Signed)
[2024-10-21] MEDS: 0.9 % SODIUM CHLORIDE 1000 ml 1,000 ML IV (13:05)
[2024-10-21] MEDS: ONDANSETRON 2 MG/ML inj 4 MG IVP (13:05)
[2024-10-21] MEDS: KETOROLAC 30 MG/ML inj IV (13:05)
[2024-10-21 13:26] LABS: Basophils Absolute Auto 0.04 K/uL (0.00-0.30); Basophils Percent Auto 0.4 % (0.0-3.0); Eosinophils Absolute Auto 0.61 K/uL (0.00-0.50); Eosinophils Percent Auto 6.6 % (0.0-7.0); Hematocrit 45.9 % (37.0-53.0); Hemoglobin* 15.5 gm/dL (13.5-17.5); Immature Granulocytes Abs Auto 0.05 K/uL (0.00-0.30); Immature Granulocytes Pct Auto 0.5 %; Lymphocytes Absolute Auto 2.07 K/uL (0.90-2.90); Lymphocytes Percent Auto 22.4 % (20-44); Mean Corpuscular HGB Conc 34 gm/dL (32-36); Mean Corpuscular Hemoglobin 28 pg (26-34); Mean Corpuscular Volume 84 fL (80-100); Monocytes Percent Auto 9.7 % (0.0-11.0); Neutrophils Absolute Auto 5.58 K/uL (1.7-7.0); Neutrophils Percent Auto 60.4 % (42.0-72.0); Platelet Count* 362 K/uL (140-440); RDW Coefficient of Variation % 12.4 % (11.5-15.5); Red Blood Count 5.49 m/uL (4.30-5.90); White Blood Count* 9.25 K/uL (4.50-11.00)
[2024-10-21 13:36] LABS: Slide Review Reflex No
[2024-10-21 13:40] LABS: Albumin* 4.9 g/dL (3.3-5.0); Chloride* 101 mmol/L (96-114); Potassium* 4.4 mmol/L (3.6-5.1); Sodium* 135 mmol/L (135-149)
[2024-10-21 13:42] LABS: Anion Gap 12 mEq/L (7-15); Bilirubin Total* 0.4 mg/dL (0.1-1.5); Carbon Dioxide* 22 mmol/L (20-32); Creatinine* 0.9 mg/dL (0.5-1.5); Est. Creatinine Clearance* 92.89; Estimated Glomerular Filt Rate 103 ml/min
[2024-10-21 13:43] LABS: Alanine Aminotransferase* 40 U/L (4-50); Alkaline Phosphatase* 106 U/L (40-150); Aspartate Amino Transferase* 22 U/L (12-35); Blood Urea Nitrogen* 19 mg/dL (7-30); Calcium* 9.8 mg/dL (8.4-10.6); Glucose* 165 mg/dL (60-115); Total Protein* 7.6 g/dL (6.0-8.3)
--- OUTSIDE RECORDS SUMMARY | 2024-10-21 14:02 | XMS_ITS | Clinical Summary ---
Author Organization [facility] Address [place], [place] [address] Care Team Providers Care Client Director Name Role Phone Daphney Sun MD Primary Care Provider [phone] Allergies No known active allergies Medications Accu-Chek [...] Department Care Team Description 10/03/2024 2:00 PM BIG DATA PLATFORM ARCHITECT Office Visit [facility] [address] [place] [address] Juan Shell MD Medication Management (living on the streets right now, plans to move to [facility]. dreams, memory and depression the same. Headache-sharp and painful for past 3 days) 10/03/2024 Travel 09/28/2024 Telephone [facility] [address] [place] [address] Juan Shell MD Late Cancel Appointment (09/29/2024 @12:30PM ) 09/25/2024 1:30 PM BIG DATA PLATFORM ARCHITECT Office Visit [facility] [address] [place] [address] Juan Shell MD Medication Management (forgetting a lot of things, trouble with concentration and recall) 09/25/2024 Telephone [facility] [address] [place] [address] Juan Shell MD Questions 09/25/2024 Travel 09/04/2024 1:00 PM BIG DATA PLATFORM ARCHITECT Office Visit [facility] [address] [place] [address] Juan Shell MD Medication Management (stated he stopped breathing taking minipress, so he stopped taking it after 2 doses) 09/04/2024 Travel 08/27/2024 5:07 PM BIG DATA PLATFORM ARCHITECT - 08/27/2024 5:50 PM [place] [address] [place] [id number] Stevie Lin PA Gastroesophageal reflux disease, unspecified whether esophagitis present (Primary Dx) Discharge Disposition: Home Self Care 08/27/2024 Travel 08/18/2024 Patient Outreach [address] [address] Gabby Narvaez Care Coordination (discharged) 08/14/2024 9:30 AM BIG DATA PLATFORM ARCHITECT Office Visit [facility] [address] [place] [address] Juan Shell MD Mental Health Intake (haunting dream, a lot of depression) 08/14/2024 Travel 08/09/2024 6:26 PM BIG DATA PLATFORM ARCHITECT - 08/09/2024 8:[address] [address] Stevie Baca MD Vomiting and diarrhea (Primary Dx) Discharge Disposition: Home Self Care 08/09/2024 Travel 08/07/2024 Telephone [facility] [address] [place] [address] Juan Shell MD Pre-Visit Intake 08/01/2024 Patient Outreach [address] [address] Gabby Narvaez Care Coordination from Last 3 [...] Comments Blood Pressure 126/67 10/03/2024 2:06 PM BIG DATA PLATFORM ARCHITECT Pulse 79 10/03/2024 2:06 PM BIG DATA PLATFORM ARCHITECT Temperature 36.5 C (97.7 F) 08/27/2024 5:11 PM BIG DATA PLATFORM ARCHITECT Respiratory Rate 18 08/27/2024 5:11 PM BIG DATA PLATFORM ARCHITECT Oxygen Saturation 97% 08/27/2024 5:11 PM BIG DATA PLATFORM ARCHITECT Inhaled Oxygen Concentration - - Weight 114.3 kg (252 lb) 10/03/2024 2:06 PM BIG DATA PLATFORM ARCHITECT Height 172.7 cm (5' 8) 08/27/2024 5:11 PM BIG DATA PLATFORM ARCHITECT Body Mass Index 38.32 08/27/2024 5:11 PM BIG DATA PLATFORM ARCHITECT Plan of Treatment Upcoming Encounters Date Type Department Care Team (Late st Contact Info) Description 11/10/2024 9:00 AM BIG DATA PLATFORM ARCHITECT Office Visit [facility] [address] [place] [address] Juan Shell MD [address] [place] [address] 11/14/2024 11:00 AM BIG DATA PLATFORM ARCHITECT Office Visit [facility] [address] [place] [phone] Júnior Peters, Mehrdad, LP [address] [place] [address] 02/23/2025 8:00 AM CDT Office Visit [facility] [address] [place] [address] Marguerite Otero, PhD, LP [address] [place] [address] Health Maintenance Due Date Last Done Comments [...] Comments GLUCOSE METER Routine 08/27/2024 5:09 PM [employer] DATA [employer] ARCH[employer]ECT CT ABDOMEN PELVIS W STAT 08/09/2024 8:01 PM BIG DATA PLATFORM ARCHITECT EKG 12 LEAD STAT 08/09/2024 7:02 PM BIG DATA PLATFORM ARCHITECT HEPATIC FUNCTION PANEL STAT 08/09/2024 6:53 PM BIG DATA PLATFORM ARCHITECT LIPASE STAT 08/09/2024 6:53 PM BIG DATA PLATFORM ARCHITECT TROPONIN T (HS) ACUTE W/2HR REFLEX STAT 08/09/2024 6:53 PM BIG DATA PLATFORM ARCHITECT BASIC METABOLIC PANEL STAT 08/09/2024 6:53 PM BIG DATA PLATFORM ARCHITECT CBC W PLT NO DIFF STAT 08/09/2024 6:5 2 PM BIG DATA PLATFORM ARCHITECT ANTI HIV 1/2 Routine 04/26/2024 9:45 AM [...] * (ABNORMAL) GLUCOSE METER (08/27/2024 5:09 PM BIG DATA PLATFORM ARCHITECT) Pathologist [facility] GLUCOSE METER 102(H) 65 - 100 mg/dL 08/28/2024 12:16 AM BIG DATA PLATFORM ARCHITECT [facility] Blood BLOOD SPECIMEN / Unknown 08/27/2024 5:09 PM BIG DATA PLATFORM ARCHITECT 08/28/2024 12:16 AM BIG DATA PLATFORM ARCHITECT Doctor Unknown CHEMISTRY Final Result [facility] [address] [phone] * CT Abdomen Pelvis w IV (Oral Contrast NO) (08/09/2024 8:01 PM BIG DATA PLATFORM ARCHITECT) Anatomical Region Laterality Modality Abdomen, Pelvis, AORTA, LIVER, SPLEEN Computed Tomography Stevie Baca MD CT Aruna l Result * EKG 12 LEAD (08/09/2024 7:02 PM BIG DATA PLATFORM ARCHITECT) Pathologist [facility] Interpretation Sinus rhythm with marked sinus arrhythmia Otherwise normal ECG No previous ECGs available BEYOND NOW Ventricular Rate 75 BPM BEYOND NOW Atrial Rate 75 BPM BEYOND NOW P-R Interval 172 ms BEYOND NOW QRS Duration 98 ms BEYOND NOW QT 360 ms BEYOND NOW QTc 402 ms BEYOND NOW P Lydia 77 degrees BEYOND NOW R Lydia 78 degrees BEYOND NOW T Lydia 67 degrees BEYOND NOW 08/09/2024 7:02 PM BIG DATA PLATFORM ARCHITECT 08/10/2024 3:09 PM BIG DATA PLATFORM ARCHITECT Stevie Baca MD EKG ORD Edit ed Result - Final BEYOND NOW [place], [place] * TROPONIN T (HS) ACUTE W/2HR REFLEX (08/09/2024 6:53 PM BIG DATA PLATFORM ARCHITECT) Pathologist [facility] TROPONIN T HS <6 6-15 ng/L ng/L 08/09/2024 7:19 PM BIG DATA PLATFORM ARCHITECT [facility] Blood BLOOD SPECIMEN / Unknown Venipuncture / Unknown 08/09/2024 6:53 PM BIG DATA PLATFORM ARCHITECT 08/09/2024 6:55 PM BIG DATA PLATFORM ARCHITECT Narrative [facility] - 08/09/2024 7:19 PM BIG DATA PLATFORM ARCHITECT hs-cTnT (Elecsys Troponin T Gen 5) concentration [...] Stevie Baca MD CHEMISTRY Aruna l Result [facility] [address] [address] * LIPASE (08/09/2024 6:53 PM BIG DATA PLATFORM ARCHITECT) LIPASE 50.9 13.0 - 60.0 IU/L 08/09/2024 7:19 PM BIG DATA PLATFORM ARCHITECT [facility] Blood BLOOD SPECIMEN / Unknown Venipuncture / Unknown 08/09/2024 6:53 PM BIG DATA PLATFORM ARCHITECT 08/09/2024 6:55 PM BIG DATA PLATFORM ARCHITECT Stevie Baca MD CHEMISTRY Aruna l Result [facility] [address] [phone] * (ABNORMAL) HEPATIC FUNCTION PANEL (08/09/2024 6:53 PM BIG DATA PLATFORM ARCHITECT) ALBUMIN 4.2 4.0 - 4.9 g/dL 08/09/2024 7:19 PM [facility] PROTEIN,TOTAL 6.9 6.0 - 8.0 g/dL 08/09/2024 7:19 PM [facility] BILIRUBIN,TOTAL 0.3 0.0 - 1.2 mg/dL 08/09/2024 7:19 PM [facility] BILIRUBIN,DIRECT 0.2 0.0 - 0.2 mg/dL 08/09/2024 7:19 PM [facility] BILIRUBIN,INDIRE CT 0.1(L) 0.2 - 0.8 mg/dL 08/09/2024 7:19 PM [facility] ALK PHOSPHATASE 113 40 - 129 IU/L 08/09/2024 7:19 PM [facility] ALT (SGPT) 83(H) 10 - 50 IU/L 08/09/2024 7:19 PM [facility] AST (SGOT) 39 10 - 50 IU/L 08/09/2024 7:19 PM [facility] Blood BLOOD SPECIMEN / Unknown Venipuncture / Unknown 08/09/2024 6:53 PM BIG DATA PLATFORM ARCHITECT 08/09/2024 6:55 PM BIG DATA PLATFORM ARCHITECT us Stevie Baca MD CHEMISTRY Aruna l Result Performing Organization Address City/[facility]/ZIP Co de Phone Number [facility] [address] [phone] * (ABNORMAL) BASIC METABOLIC PANEL (08/09/2024 6:53 PM BIG DATA PLATFORM ARCHITECT) SODIUM 139 136 - 145 mmol/L 08/09/2024 7:19 PM [facility] POTASSIUM 3.8 3.5 - 5.1 mmol/L 08/09/2024 7:19 PM [facility] CHLORIDE 103 98 - 107 mmol/L 08/09/2024 7:19 PM [facility] CO2,TOTAL 22 22 - 29 mmol/L 08/09/2024 7:19 PM [facility] ANION GAP 14 5 - 18 08/09/2024 7:19 PM [facility] GLUCOSE 127(H) 70 - 99 mg/dL 08/09/2024 7:19 PM [facility] CALCIUM 9.0 8.8 - 10.4 mg/dL 08/09/2024 7:19 PM [facility] Comment: Reference ranges for this test were updated on 07/18/2024 to reflect our healthy population more accurately. Reference range changes are not retroactively applied to results, but previous results using the same methodology can be interpreted in the context of the new reference range. BUN 14 6 - 20 mg/dL 08/09/2024 7:19 PM [facility] CREATININE 1.09 0.70 - 1.20 mg/dL 08/09/2024 7:19 PM [facility] BUN/CREAT RATIO 13 10 - 20 7:19 PM [facility] eGFR 82(L) >90 mL/min/1.7 3m2 08/09/2024 7:19 PM [facility] Comment:As of 2021, eG FR is calculated by the CKD-EPI creatinine equation without race adjustment. eGFR can be influenced by muscle mass, exercise, and diet. The reported eGFR is an estimation only and is only applicable if the renal function is stable. Blood BLOOD SPECIMEN / Unknown Venipuncture / Unknown 08/09/2024 6:53 PM BIG DATA PLATFORM ARCHITECT 08/09/2024 6:55 PM BIG DATA PLATFORM ARCHITECT us Stevie Baca MD CHEMISTRY Aruna bermeo Result [facility] [address] [place] [phone] * (ABNORMAL) CBC W PLT NO DIFF (08/09/2024 6:52 PM BIG DATA PLATFORM ARCHITECT) WHITE BLOOD COUNT 9.1 4.5 - 11.0 thou/cu mm 08/09/2024 6:58 PM [facility] RED BLOOD COUNT 4.64 4.30 - 5.90 mil/cu mm 08/09/2024 6:58 PM [facility] HEMOGLOBIN 13.4(L) 13.5 - 17.5 g/dL 08/09/2024 6:58 PM [facility] HEMATOCRIT 39.3 37.0 - 53.0 % 08/09/2024 6:58 PM [facility] MCV 85 80 - 100 fL 08/09/2024 6:58 PM [facility] MCH 28.9 26.0 - 34.0 pg 08/09/2024 6:58 PM [facility] MCHC 34.1 32.0 - 36.0 g/dL 08/09/2024 6:58 PM [facility] RDW 13.1 11.5 - 15.5 % 08/09/2024 6:58 PM [facility] PLATELET COUNT 289 140 - 440 thou/cu mm 08/09/2024 6:58 PM [facility] MPV 8.6 6.5 - 11.0 fL 08/09/2024 6:58 PM [facility] Blood BLOOD SPECIMEN / Unknown Venipuncture / Unknown 08/09/2024 6:52 PM BIG DATA PLATFORM ARCHITECT 08/09/2024 6:55 PM [facility] - 08/09/2024 6:58 PM BIG DATA PLATFORM ARCHITECT RN to order if patient presents with anterior chest pain, consistent with angina. us Stevie Baca MD HEMATOLOGY Aruna l Result [facility] [address] [place] [phone] * (ABNORMAL) LIPID PANEL W REFLEX MEASURED LDL (04/26/2024 9:45 AM CDT) CHOLESTEROL,TOTAL 152 100 - 199 mg/dL 04/26/2024 5:38 PM CDT [facility] Comment: Cholesterol, Total Reference Ranges Desirable <200 mg/dL Borderline 200-239 mg/dL High >=240 mg/dL TRIGLYCERIDES 183(H) <150 mg/dL 04/26/2024 5:38 PM CDT [facility] HDL CHOLESTEROL 36(L) >40 mg/dL 5:38 PM CDT [facility] NON-HDL CHOLESTEROL 116 <145 mg/dl 04/26/2024 5:38 PM CDT [facility] CHOL/HDL RATIO 4.22 <4.50 04/26/2024 5:38 PM CDT [facility] LDL CHOLESTEROL 79 <=130 mg/dL 04/26/2024 5:38 PM CDT [facility] VLDL CHOLESTEROL 37(H) <=30 mg/dL 04/26/2024 5:38 PM CDT [facility] PROVIDER ORDERED STATUS RANDOM 04/26/2024 5:38 PM CDT [facility] Blood BLOOD SPECIMEN / Unknown Venipuncture / Unknown 04/26/2024 9:45 AM CDT 04/26/2024 9:58 AM CDT us Daphney Sun MD CHEMISTRY Final Resul t [facility] [address] [place] [address], * ANTI HCV (04/26/2024 9:45 AM CDT) HEPATITIS C ANTIBODY Non-Reacti ve Non-React janel 04/26/2024 5:50 PM CDT [facility] Comment:Please note, per www .CDC.gov: [...] OUTS Final Resul t Performing Organization Address [facility] Co de Phone Number [facility] [address] [place] [phone], * ANTI HIV 1/2 [05840.0] (04/26/2024 9:45 AM CDT) HIV-1/HIV-2 SCREEN Non-Reacti ve Non-Reacti ve 04/26/2024 5:18 PM CDT [facility] Comment:HIV-1 p24 and HIV-1/ HIV-2 Ab Not Detected. Blood BLOOD SPECIMEN / Unknown Venipuncture / Unknown 04/26/2024 9:45 AM CDT 04/26/2024 9:58 AM CDT us Daphney Sun MD SEND OUTS Final Resul t Performing Organization Address [facility] de Phone Number [facility] [address] [place] [address], from Last 3 Months or Most Recently Relevant to Health Maintenance Insurance [facility] Care Teams Client Director Relationship Specialty Start Date End Date Daphney Sun MD [address] [place] [address] PCP - General Family Practice 04/13/22
[2024-10-21 14:05] LABS: PCR FLU A Negative PCR FLU A (Negative); PCR FLU B Negative PCR FLU B (Negative); PCR RSV Negative PCR RSV (Negative); SARS PCR* Negative SARS-CoV-2 (Negative)
--- NOTE | 2024-10-21 14:19 | ED.DIZZY ---
HPI - Dizziness General Chief Complaint: Dizziness/Vertigo Stated Complaint: has brain damage, head feels fuzzy Time Seen by Provider: 10/21/24 12:40 History of Present Illness HPI Narrative: Patient is a 54-year-old gentleman with history of traumatic brain injury comes in with some mild dizziness without vertigo. He has a headache in the posterior occiput. He had a traumatic brain injury 35 years ago and states he has multiple flashbacks. He sees Psychiatry regularly and is on a complex regiment of medications. He is also diabetic. He states he does not really take care of his diabetes well but does remember to take his medications. He has had no fevers no chills no stiff neck no chest pain no shortness a breath orthopnea no PND. He has nausea is mild. Symptoms have persisted for several days. Related Data Previous Rx's ?Medication ?Instructions ?Recorded metformin 500 mg tablet 500 mg PO DAILY #10 tabs 12/16/22 fluticasone propionate 50 2 spray intranasal QDAY #16 grams 01/13/24 mcg/actuation nasal spray,suspension guaifenesin 600 mg tablet, 600 - 1,200 mg (1 - 2 x 600 mg) PO 01/13/24 extended release 12 hr BID #30 tabs ketotifen fumarate 0.025 % (0.035 1 drp ophthalmic (eye) BID #5 mL 01/13/24 %) eye drops levocetirizine 5 mg tablet 5 mg PO QPM #30 tabs 01/13/24 omeprazole 40 mg capsule,delayed 40 mg PO DAILY #30 caps 06/12/24 release Allergies Allergy/AdvReac Type Severity Reaction Status Date / Time No Known Drug Allergies Allergy Verified 01/13/24 18:11 Review of Systems Status of ROS: Reports: 10 or more systems reviewed and unremarkable except as noted in History and below [facility] Social History Smoking Status: Former smoker What tobacco products do you use: cigarettes Smoking quit date/years: <= 15 years ago Do you use any of these nicotine containing products: None and Vaping Products Second hand tobacco smoke exposure: Yes How often do you have a drink containing alcohol: monthly or less How many standard drinks containing alcohol do you have on a typical day: 5 or 6 How often do you have six or more drinks on one occasion: Less than monthly AUDIT-C Alcohol total score: 4 Non-prescribed substance use: marijuana (any form) Non-prescribed substance use details: smokes weed everyday service: No Exam Narrative: Exam Narrative: EXAM GENERAL: Patient appears comfortable and well. EYES: No scleral icterus. ENT: Tympanic membranes and oropharynx normal. THYROID: no thyroid nodules or thyromegaly. LYMPH: No supraclavicular or cervical lymphadenopathy. SKIN: Visible skin seen during exam normal or with benign process only. EXT: No dependent lower extremity pedal edema. HEART: Regular rate and rhythm with no murmurs, rubs, or gallops. LUNGS: Clear to auscultation bilaterally with no crackles or wheezes. ABD: Soft, non tender, non distended. PSYCH: Good eye contact, speech is not pressured. Neurologic cranial nerves 2-12 grossly intact no focal defects. Const: Vital Signs, click to edit/add: Vital Signs - 24 hr 10/21/24 12:35 10/21/24 12:45 10/21/24 13:04 Temperature 97.1 F L Pulse Rate 91 89 Pulse Rate [Pulse Oximeter] 93 Respiratory Rate 18 Blood Pressure 142/91 H Blood Pressure [Ri ght Upper Arm] 127/82 Pulse Oximetry 95 96 95 Oxygen Delivery Me thod Room Air 10/21/24 13:05 10/21/24 13:15 Temperature Pulse Rate 89 87 Pulse Rate [Pulse Oximeter] Respiratory Rate Blood Pressure Blood Pressure [Ri ght Upper Arm] Pulse Oximetry 97 95 Oxygen Delivery Me thod Course Vital Signs Vital signs: Initial Vital Signs Temperature 97.1 F L 10/21/24 12:35 Temperature Source Temporal Artery Scan 10/21/24 12:35 Pulse Rate 93 10/21/24 12:35 Pulse Rhythm Regular 10/21/24 12:35 Respiratory Rate 18 10/21/24 12:35 Blood Pressure 127/82 10/21/24 12:35 Blood Pressure Mean 97 10/21/24 12:35 Blood Pressure Position High-Fowlers 10/21/24 12:35 Pulse Oximetry 95 10/21/24 12:35 Oxygen Delivery Method Room Air 10/21/24 12:35 Vital Signs Temperature 97.1 F L 10/21/24 12:35 Pulse Rate 93 10/21/24 12:35 Respiratory Rate 18 10/21/24 12:35 Blood Pressure 127/82 10/21/24 12:35 Pulse Oximetry 95 10/21/24 12:35 Oxygen Delivery Method Room Air 10/21/24 12:35 Temperature 97.1 F L 10/21/24 12:35 Pulse Rate 87 10/21/24 13:15 Respiratory Rate 18 10/21/24 12:35 Blood Pressure 142/91 H 10/21/24 13:04 Pulse Oximetry 95 10/21/24 13:15 Oxygen Delivery Method Room Air 10/21/24 12:35 Medications Administered Medications: Discontinued Medications Generic Name Dose Route Start Last Admin Trade Name Freq PRN Reason Stop Dose Admin Sodium Chloride 1,000 mls @ 1,000 mls/hr 10/21/24 12:51 10/21/24 13:05 0.9 % Sodium Chloride 1000 Ml IV 10/21/24 13:50 1,000 mls/hr .Q1H LUKE Administration Ketorolac Tromethamine 30 mg 10/21/24 12:50 10/21/24 13:05 Ketorolac 30 Mg/Ml Inj IV 10/21/24 12:51 30 mg ONCE ONE Administration Ondansetron HCl 4 mg 10/21/24 12:50 10/21/24 13:05 Ondansetron 2 Mg/Ml Inj IVP 10/21/24 12:51 4 mg ONCE ONE Administration MDM - Dizziness MDM Narrative Medical decision making narrative: Patient is a 54-year-old gentleman who is living in a sober house recovering from substance abuse who has history of traumatic brain injury presents with nausea and light headedness. He had a thorough evaluation including CT of the head electrolytes CBC. He is unable to produce a urine sample. Did give him 30 mg of Toradol 4 mg of Zofran 1 L of normal saline he does feel better. He seems somewhat exasperated by the complexity of his medical care and I do think that we are dealing with chronic issue here. I did offer reassurance and recommend primary care follow-up. Lab Data Labs: Lab Results 10/21/24 Range/Units 13:10 WBC 9.25 (4.50-11.00) K/uL RBC 5.49 (4.30-5.90) m/uL Hgb 15.5 (13.5-17.5) gm/dL Hct 45.9 (37.0-53.0) % MCV 84 (80-100) fL MCH 28 (26-34) pg MCHC 34 (32-36) gm/dL RDW Coeff of Emma 12.4 (11.5-15.5) % Plt Count 362 (140-440) K/uL Neut % (Auto) 60.4 (42.0-72.0) % Lymph % (Auto) 22.4 (20-44) % Sawyer % (Auto) 9.7 (0.0-11.0) % Eos % (Auto) 6.6 (0.0-7.0) % Baso % (Auto) 0.4 (0.0-3.0) % Neut # (Auto) 5.58 (1.7-7.0) K/uL Lymph # (Auto) 2.07 (0.90-2.90) K/uL Sawyer # (Auto) 0.90 (0.00-0.90) K/UL Eos # (Auto) 0.61 H (0.00-0.50) K/uL Baso # (Auto) 0.04 (0.00-0.30) K/uL Abs Immat Gran (auto) 0.05 (0.00-0.30) K/uL Imm/Tot Granulo (auto) 0.5 % Sodium 135 (135-149) mmol/L Potassium 4.4 (3.6-5.1) mmol/L Chloride 101 (96-114) mmol/L Carbon Dioxide 22 (20-32) mmol/L Anion Gap 12 (7-15) mEq/L BUN 19 (7-30) mg/dL Creatinine 0.9 (0.5-1.5) mg/dL Estimated Creat Clear 92.89 Estimated GFR 103 ml/min Glucose 165 H (60-115) mg/dL Calcium 9.8 (8.4-10.6) mg/dL Total Bilirubin 0.4 (0.1-1.5) mg/dL AST 22 (12-35) U/L ALT 40 (4-50) U/L Alkaline Phosphatase 106 (40-150) U/L Total Protein 7.6 (6.0-8.3) g/dL Albumin 4.9 (3.3-5.0) g/dL SARS-CoV-2 (PCR) Negative SARS-CoV-2 (Negative) Influenza Type A (PCR) Negative PCR FLU A (Negative) Influenza Type B (PCR) Negative PCR FLU B (Negative) RSV (PCR) Negative PCR RSV (Negative) Discharge Plan Discharge Clinical Impression: Headache Patient Disposition: Home, Self-Care Condition: Stable Instructions: Acute Headache (ED) Additional Instructions: Continue current medication Tylenol Motrin Rest Follow-up with your doctor this week. Activity Level: No Restrictions Discharge Diet: Regular Prescriptions: No Action levocetirizine 5 mg tablet 5 mg PO QPM Qty: 30 0RF fluticasone propionate 50 mcg/actuation spray,suspension 2 spray intranasal QDAY Qty: 16 0RF Rx Instructions: administer into each nostril ketotifen fumarate 0.025 % (0.035 %) drops 1 drp ophthalmic (eye) BID Qty: 5 0RF Rx Instructions: administer at least 8 hours apart guaifenesin 600 mg tablet extended release 12hr 600 - 1,200 mg PO BID Qty: 30 0RF metformin 500 mg tablet 500 mg PO DAILY Qty: 10 2RF omeprazole 40 mg capsule,delayed release(DR/EC) 40 mg PO DAILY Qty: 30 3RF Follow Up/Referrals: Elda Grijalva PA-C [Primary Care Provider] - Stand Alone Forms: [facility] Info Instructions
== END 2024-10-21 14:32 | disposition home or self-care (01) ==
PROVIDERS: Emergency Provider Internal Medicine; PCP Physician Assistant Surgical
DX: R51.9 Headache, unspecified (principal)
CPT/HCPCS: 36415; 70450; 80053; 81003; 85025; 87631; 96361; 96374; 96375; 99283; 99284; J1885; J2405; J7030

== ENCOUNTER 2024-11-27 09:57 | Outpatient (CLI) | payer MEDICAID, SELFPAY | END 2024-11-27 09:58 | disposition home or self-care (01) | LOC: NFLDREF 11-28 06:24 | PROVIDERS: PCP Physician Assistant Surgical; Referring Provider Physician Assistant Surgical | DX: R19.7 Diarrhea, unspecified (principal); R11.2 Nausea with vomiting, unspecified | CPT/HCPCS: 87045; 87046; 87427; 87493 ==

== ENCOUNTER 2024-12-31 18:15 | Outpatient (CLI) | payer MEDICAID, SELFPAY | END 2024-12-31 18:16 | disposition home or self-care (01) | PROVIDERS: PCP Physician Assistant Surgical; Visit Provider Emergency Medicine | DX: R10.9 Unspecified abdominal pain (principal); R51.9 Headache, unspecified; H53.8 Other visual disturbances; R11.10 Vomiting, unspecified | CPT/HCPCS: A0425; A0427 ==

== ENCOUNTER 2024-12-31 18:38 | Emergency (ER) | payer MEDICAID, SELFPAY ==
--- OUTSIDE RECORDS SUMMARY | 2024-12-31 18:41 | XMS_ITS | Clinical Summary ---
Author Organization [facility] Address [address] [place] [address] Care Team Providers Care Novelty Worker Name Role Phone Inés Soriano D.O. Primary Care Provider [phone] Source Comments Patient records contain information from all sites at [facility]. For routine questions regarding patient records, call [phone] during business hours, M-F 8:00 AM - 5:00 PM Central Time. Record requests for emergency care only can be directed to [phone] at any time.[facility] Allergies No known active allergies Medications ORAL IBUPROFEN Take 400 mg by mouth every 6 (six) hours as needed. Active melatonin 3 mg tablet Take 3 mg by mouth at bedtime. 1 Active ARIPiprazole (Abilify) 2 mg tablet Take by mouth. 4 09/11/20 25 Active cyclobenzaprine (FlexeriL) 10 mg tablet Take 10 mg by mouth 3 (three) times a day as needed. 4 Active metFORMIN XR (Glucophage-XR) 500 mg 24 hr tablet Take 1,000 mg by mouth. 4 Active ondansetron ODT (Zofran-ODT) 4 mg disintegrating tablet Dissolve 4 mg in the mouth every 8 (eight) hours as needed. 4 Active blood-glucose meter miscIndications:Nancy betes Mellitus Type 2 Hyperglycemia (HCC),Hyperlipidemi a Mixed,Fatigue,Defic iency Vitamin B12 1 each daily. One meter e11.65 1 each 4 Active blood sugar diagnostic strips (Blood Glucose Test Strips)Indications: Diabetes Mellitus Type 2 Hyperglycemia (HCC),Hyperlipidemi a Mixed,Fatigue,Defic iency Vitamin B12 1 test daily. 100 test 1 Active omeprazole (PriLOSEC) [address] capsule Take 1 capsule (40 mg total) by mouth daily before morning meal. 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 To 5 Hours 59 Minutes Sequela 08/14/2024 Diabetes Mellitus Type 2 Without Complication Problems Related To Other Legal Circumstances Moderate Or Severe Use Disor liam (Dependence) Alcohol Remission 03/12/2021 Adjustment Disorder 02/21/2021 Homeless Unspecified Sheltered or Unsheltered Antisocial Personality Disorder 02/19/2021 Dependence Nicotine 05/30/2020 Abuse Cannabis 05/30/2020 Gastroesophageal Reflux Disease NOS 05/30/2020 Other Cholelithiasis Without Obstruction 020 Overview (05/27/2020): Added automatically from request for surgery [id number] Immunizations Immunization Administration Dates Next Due PCV20 06/25/2022 SARS-COV-2 (COVID-19) - Mentegram (J&J)(Discontinu ed) 02/12/2021 Tdap 06/25/2022 influenza vaccine quad (FLUZ ONE/FLUARIX) (6 months and older)(PF) 06/30/2023,06/25/2022 Family History Medical History Relation Name Comments Alcohol abuse Father Smoker Father Diabetes Mother Relation Name Status Comments Father Mother Social History Tobacco Use Types Packs/Day Years Used Date Smoking Tobacco: Former Smokeless Tobacco: Never Tobacco Cessation:Ready to Q uit: No; Counseling Given: Yes Alcohol Use Standard Drinks/Week Comments Not Currently 0 (1 standard drink = 0.6 oz pur e alcohol) pt denies alcohol use today [facility] Utilities Answer Date Recorded In the past 12 months has e [employer], gas, oil, or water [employer] threatened to shut off services in your home? Patient declined 09/07/2024 PHQ-2 Answer Date Recorded PHQ-2 Score 6 09/07/2024 Exercise Vital Sign Answer Date Recorde d On average, how many days pe r week do you engage in moderate to strenuous exercise (like a brisk walk)? Patient declined On average, how many minutes do you engage in exercise at this level? Patient declined 09/07/2024 Hunger Vital Sign Answer Date Recorded Within the past 12 months, y ou worried that your food would run out before you got the money to buy more. Often true 09/07/20 Within the past 12 months, t he food you bought just didn't last and you didn't have money to get more. Often true 09/07/2024 PRAPARE - Transportation Answer Date Re corded In the past 12 months, has l ack of transportation kept you from medical appointments or from getting medications? Yes 08/14 In the past 12 months, has l ack of transportation kept you from meetings, work, or from getting things needed for daily living? Yes 09/07/2024 Depression Answer Date Recor ded PHQ-9 Total Score (max 27) 20 09/07 Nutrition Answer Date Recorded On average, how many serving s of fruits and vegetables do you eat per day (serving size is equal to 1 cup or approximately the size of a tennis ball)? 0-2 09/07/2024 Dental Answer Date Recorded Dental: Regular Dentist No 09/07/20 Employment Answer Date Recorded Employment status Unemployed/not in th e paid workforce but seeking employment 09/07/2024 Housing Stability Answer Date Recorded What is your living situatio n today? I do not have a steady place to live (I am temporarily staying with others, in a hotel, in a senior care, living outside on the street, on a beach, in a car, abandoned building, bus or train station, or in a park) 09/07/2024 Sex and Gender Information Value Date Recorded Sex Assigned at Male 09/07/2024 10:36 AM LINEN ROOM ATTENDANT Legal Sex Male 8:43 AM LINEN ROOM ATTENDANT Gender Identity Male 09/07/2024 10:36 AM LINEN ROOM ATTENDANT Sexual Orientation Straight 09/07/2024 10 :36 AM LINEN ROOM ATTENDANT Last Filed Vital Signs Vital Sign Reading Time Taken Comments Blood Pressure 124/81 09/07/2024 10:27 AM LINEN ROOM ATTENDANT Pulse 101 09/07/2024 10:27 AM LINEN ROOM ATTENDANT Temperature 36.6 C (97.8 F) 09/07/2024 10:27 AM LINEN ROOM ATTENDANT Respiratory Rate 20 04/30/2021 2:16 AM CDT Oxygen Saturation 98% 04/30/2021 2:16 AM CDT Inhaled Oxygen Concentration - - Weight 110 kg (243 lb 6.2 oz) 09/07/2024 10:27 A M LINEN ROOM ATTENDANT Height 173.7 cm (5' 8.39) 09/07/2024 10:[address] Body Mass Index 36.59 09/07/2024 10:27 AM LINEN ROOM ATTENDANT Plan of Treatment Health Maintenance Due Date Last Done Comments CT Colonography 1972 Cologuard 1972 Colonoscopy 1972 Colorectal Cancer Screening 1972 Dilated Eye Exam 1972 FIT 1972 Hepatitis B Vaccines (1 of 3 - 19+ 3-dose series) 1991 Zoster Vaccines (1 of 2) 2022 COVID-19 Vaccine ( season) 2024 06/30/2023, 06/25/2022, 02/12/2021 Influenza Vaccine (#1) 2024 06/30/2023, 2021 Depression Screening (Annual PHQ-2) 09/13/2024 09/07/2024 Hemoglobin A1C 10/27/2024 04/26/2024, 04/12/2022, 04/30/2020, Additional history exists Lipid (Cholesterol) Screening 04/26/2025 04/26/2024, 12/25/2022, 01/28/2018 Creatinine Level (Kidney Function Test) 08/09/2025 08/09/2024, 04/26/2024, 04/26/2024, Additional history exists Diabetic Office Visit with Foot Exam 09/07/2025 09/07/2024 Hepatitis C Screening 09/07/2025 Postpo kristyn from 1972 (Patient Refused) Office Visit for Blood Pressure Check / Re-check 09/07/2025 09/07/2024 Visit: Chronic Disease, age 18+ 09/07/2025 09/07/2024 DTaP,Tdap,and Td Vaccines (2 - Td or Tdap) 06/25/2032 06/25/2022 HIV Screening Completed 01/28/2018 Pneumococcal vaccine (50+ years) Completed 06/25/2022 IPV Vaccines Aged Out No longer eligi ble based on patient's age to complete this topic Medical Devices Implanted Type Area [employer] Identity Management Consultant Device Identifier Shelf Expiration Date Model / Serial / Lot Clp Apr End Intnl Endo 5x11 - [id number] Implanted:Qty : 1 on 05/30/2020 by Marlene Dang M.D. at [facility] Hardware e.g. pins/screws/ rods [employer] [id number] 10/13/2022 [id number] / / [id number] Procedures Procedure Name Priority Date/Time Associated Diagnosis Comments BASIC METABOLIC PANEL, S/P STAT 03/14/2021 9:27 PM CDT HEMOGLOBIN A1C, B Routine 04/30/2020 11: 39 AM CDT Elevated Glucose HIV-1/-2 AG AND AB SCREEN Routine 01/28/2018 1:27 PM CDT Screening Condition LIPID PANEL, S Routine 01/28/2018 1:27 PM CDT Screening Condition from Last 3 Months or Most Recently Relevant to Health Maintenance Results * (ABNORMAL) Basic Metabolic Panel (03/14/2021 9:27 PM CDT) Potassium, P 4.3 3.6 - 5.2 mmol/L 03/14/2021 9:56 PM CDT [facility] Sodium, P 138 135 - 145 mmol/L 03/14/2021 9:56 PM CDT [facility] Chloride, P 99 98 - 107 mmol/L 03/14/2021 9:56 PM CDT [facility] Bicarbonate, P 28 22 - 29 mmol/L 03/14/2021 9:56 PM CDT [facility] Anion Gap, P 11 7 - 15 03/14/2021 9:56 PM CDT [facility] BUN (Blood Urea Nitrogen), P 13 8 - 24 mg/dL 03/14/2021 9:56 PM CDT [facility] Creatinine 1.08 0.74 - 1.35 mg/dL 03/14/2021 9:56 PM CDT [facility] eGFR-Black/Afri can Finnish >90 >=60 mL/min/BSA 03/14/2021 9:56 PM CDT [facility] Comment: ----ADDITIONAL INFORMATION---- Estimated GFR calculated using the 2009 CKD_EPI creatinine equation. eGFR Non-Black/Afric an Finnish 81 >=60 mL/min/BSA 03/14/2021 9:56 PM CDT [facility] Comment: ----ADDITIONAL INFORMATION---- Estimated GFR calculated using the 2009 CKD_EPI creatinine equation. Calcium, Total, P 8.9 8.6 - 10.0 mg/dL 03/14/2021 9:56 PM CDT [facility] Glucose, P 176(H) 70 - 140 mg/dL 03/14/2021 9:56 PM CDT [facility] Blood (Blood, Venous) 03/14/2021 9:27 PM CDT 03/14/2021 9:37 PM CDT Roberto Rowe M.D. LAB BLOOD [place] [address], [place] [address] * (ABNORMAL) Hemoglobin A1c (04/30/2020 11:39 AM CDT) Hemoglobin A1c, B 5.7(H) 4.2 - 5.6 % 05/01/2020 4:31 PM CDT [facility] Comment: Hemoglobin A1c values of 5.7-6.4 percent indicate an increased risk for developing diabetes mellitus. In diabetic patients, HbA1c goals should be discussed with healthcare provider. Blood (Blood, Venous) 04/30/2020 11:39 AM CDT 05/01/2020 4:06 PM CDT Juana Olson M.D. LAB BLOOD ADD-O N Final Result [facility] [address] [place] [address], [facility] [place] [address] * (ABNORMAL) Lipid Panel (01/28/2018 1:27 PM CDT) Cholesterol, Total 133 mg/dL 2017 2:[address] [facility] Comment: ----REFERENCE VALUE---- Desirable: < 200 Borderline high: 200 - 239 High: > or = 240 Triglycerides 164(H) mg/dL 01/28/2018 2:[address] [facility] Comment: ----REFERENCE VALUE---- Normal: <150 Borderline high: 150-199 High: 200-499 Very high: > or =500 Cholesterol, HDL, S 36(L) >=40 mg/dL 01/28/2018 2:[address] [facility] Calculated LDL 64 mg/dL 01/28/2018 2:[address] [facility] Comment: ----REFERENCE VALUE---- Desirable: <100 Above Desirable: 100-129 Borderline high: 130-159 High: 160-189 Very high: > or =190 Cholesterol, Non-HDL, Calculated 97 mg/dL 01/28/2018 2:[address] [facility] Comment: ----REFERENCE VALUE---- Desirable: <130 Above Desirable: 130-159 Borderline high: 160-189 High: 190-219 Very high: > or =220 Blood (Blood, Venous) 01/28/2018 1:27 PM CDT 01/28/2018 1:28 PM CDT Juana Olson M.D. LAB BLOOD ADD-O N Final Result Performing Organization Address City/[facility]/ZIP Co de Phone Number [facility] [address] [place] [id number], [facility] * HIV-1/-2 Ag and Ab Screen (01/28/2018 1:27 PM CDT) HIV-1/-2 Ag and Ab Screen, S Non-Reacti ve Non-Reacti ve 01/30/2018 10:52 AM CDT [facility] HIV-1 Ab, S Non-Reacti ve Non-Reacti ve 01/30/2018 10:52 AM CDT [facility] HIV-1 Ag, S Non-Reacti ve Non-Reacti ve 01/30/2018 10:52 AM CDT [facility] HIV-2 Ab, S Non-Reacti ve Non-Reacti ve 01/30/2018 10:52 AM CDT [facility] Blood (Blood, Venous) 01/28/2018 1:27 PM CDT 01/30/2018 8:30 AM CDT Juana Olson M.D. LAB MICROBIOLOG Y - BLOOD ORDERABLES Final Result [facility] [address] [place] [address], [facility] from Last 3 Months or Most Recently Relevant to Health Maintenance Insurance [facility] FATOU MARR FATOU MARR Care Teams Novelty Worker Relationship Specialty Start Date End Date Inés Soriano D.O. [address] [place] [phone] PCP - General Family Medicine 08/07/24
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
--- OUTSIDE RECORDS SUMMARY | 2024-12-31 18:41 | XMS_ITS | Clinical Summary ---
Author Organization [facility] Address [address] [place] [address] Care Team Providers Care Engraver Lettering Name Role Phone Daphney Sun MD Primary Care Provider Morgan Sinha MD Unavailable [phone] Allergies No known active allergies Medications metFORMIN ER (GLUCOPHAGE XR) 500 mg oral extended release tablet 24 HR Take 2 tablets (1,000 mg) by mouth twice a day. 04/26/2024 Active ARIPiprazole (ABILIFY) 10 mg oral tablet Take 1 tablet (10 mg) by mouth Daily. 12/12/2024 Active blood sugar diagnostic (BLOOD GLUCOSE TEST) Strip testing strips by [facility].(Non-Sarkis g; Combo Route) route Daily. 09/07/2024 Active cyclobenzaprine (FLEXERIL) 10 mg oral tablet Take 1 tablet (10 mg) by mouth three times a day as needed. 04/26/2024 Active famotidine (PEPCID) 20 mg oral tablet Take 1 tablet (20 mg) by mouth twice a day as needed. 08/27/2024 Active melatonin 3 mg oral tablet Take 1 tablet (3 mg) by mouth Daily. 08/14/2024 Active omeprazole (PRILOSEC) 40 mg oral delayed release capsule Take 1 capsule (40 mg) by mouth once daily. 90 capsule 3 12/22/2024 Active ondansetron (ZOFRAN) 4 mg oral ODT Dissolve 1 tablet (4 mg) in mouth every 8 (eight) hours as needed. 90 tablet 3 12/22/2024 Active indomethacin (INDOCIN) 25 mg oral capsule Take 1 capsule (25 mg) by mouth three times a day. With food 270 capsule 3 12/22/2024 Active Active Problems Problem Noted Date Diagnosed Date Posttraumatic stress disorder 09/04/2024 Alcohol use disorder, severe, in sustained remis elo 08/14/2024 Insomnia due to mental condition 08/14/2024 Severe episode of recurrent major depressive disorder, without psychotic features 08/14/2024 Unspecified focal traumatic brain injury with loss of consciousness of 1 hour to 5 hours 59 minutes, sequela 08/14/2024 Cannabis use disorder, moderate, dependence 04/13 Type 2 diabetes mellitus wit hout complication, without long-term current use of insulin 04/26/2024 Type 2 diabetes mellitus without complications 0 04/26/2024 Alcohol dependence in remission 03/12/2021 Problems related to other legal circumstances Adjustment reaction 02/21/2021 Antisocial personality disorder 02/19/2021 Homeless 02/19/2021 Cannabis abuse, uncomplicated 05/30/2020 Gastroesophageal reflux disease 05/30/2020 Nicotine dependence 05/30/2020 Other cholelithiasis without obstruction 020 Overview (12/22/2024): Added automatically from request for surgery [id number] Encounters Date Type Department Care Team Description 12/22/2024 8:00 AM CDT Office Visit [facility] - [address] [place] [address] Camilla Walls, CHILD ADOLESCENT CARE, DRIER TRANSFER CAR OPERATOR Intractable chronic paroxysmal hemicrania (Primary Dx); Cervicalgia; Subjective memory complaints; Severe cognitive impairment; History of traumatic brain injury; CYN (obstructive sleep apnea) from Last 3 Months Immunizations Name Administration Dates Next Due Influenza split virus (Fluzone Quadrivalent PF) 06/30/2023,06/25/2022 Nayely COVID-19 02/12/2021 Moderna 12+Yrs mRNA Spikevax COVID Vaccine Seaso nal 06/30/2023 Pfizer 12+ Yrs Bivalent COVID Vaccine (perez cap) 06/25/2022 Pneumococcal PCV20 06/25/2022 Tdap 06/25/2022 Social History Tobacco Use Types Packs/Day Years Used Date Smoking Tobacco: Never Smokeless Tobacco: Never Tobacco Cessation:Counseling Given: Not Answered Alcohol Use Standard Drinks/Week Comments Not Currently 0 (1 standard drink = 0.6 oz pur e alcohol) Sex and Gender Information Value Date Recorded Sex Assigned at Not on file 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 Gender Identity Not on file Sexual Orientation Not on file Plan of Treatment Health Maintenance Due Date Last Done Comments Colonoscopy 1972 Eye Exam 1972 Lipid Screening 1972 Microalbumin Q12 Month 1972 Anxiety Follow-Up (SHRUTHI-7) 1973 Depression Follow-Up (PHQ-9) 1973 HgbA1C 10/31/2020 04/30/2020 Creatinine 03/14/2022 03/14/2021 Yearly Review of HCD 2022 Zoster Vaccine (1 of 2) 2022 COVID-19 Vaccine ( season) 2024 06/30/2023, 06/25/2022, 02/12/2021 Influenza Vaccine (Season Ended) 2025 06/30/20 23, 06/25/2022 Adult Tetanus Booster 06/25/2032 06/25/2022 RSV Vaccines (1 - 1-dose 75+ series) 2047 Pneumococcal 50+ Years Completed 06/25/2022 Hepatitis C Screening Completed 04/26/2024 Insurance [facility] Care Teams Engraver Lettering Relationship Specialty Start Date End Date Daphney Sun MD [address] [place] [address] PCP - General Family Medicine 11/03/24 Morgan Sinha MD [address] [facility] [address] [place] [address] Neurology 11/03/24
--- OUTSIDE RECORDS SUMMARY | 2024-12-31 18:41 | XMS_ITS | Referral Summary ---
Author Organization [facility] Address [address] [place] [address] Care Team Providers Care Senior Auditor Name Role Phone Daphney Sun MD Primary Care Provider Morgan Sinha MD Unavailable [phone] Encounters Date Type Department Care Team Description 12/22/2024 8:00 AM CDT Office Visit [facility] [address] [place] [address] Camilla Walls APRN, HARDWOOD FLOOR SANDER Intractable chronic paroxysmal hemicrania (Primary Dx); Cervicalgia; Subjective memory complaints; Severe cognitive impairment; History of traumatic brain injury; CYN (obstructive sleep apnea) from Last 3 Months Allergies No known active allergies Medications metFORMIN ER (GLUCOPHAGE XR) 500 mg oral extended release tablet 24 HR Take 2 tablets (1,000 mg) by mouth twice a day. 04/26/2024 Active ARIPiprazole (ABILIFY) 10 mg oral tablet Take 1 tablet (10 mg) by mouth Daily. 12/12/2024 Active blood sugar diagnostic (BLOOD GLUCOSE TEST) Strip testing strips by [facility].(Non-Sarkis g; Combo Route) route Daily. 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
[2024-12-31 18:48] VITALS: BP 144/104; PULSE 99; RESP 18; TEMP 36.8; O2SAT 97; BMI 36.5
--- NOTE | 2024-12-31 19:11 | CRLHL7_ITS ---
For Patients: As a result of the Century Cures Act, medical imaging exams and procedure reports are released immediately into your electronic medical record. You may view this report before your referring provider. If you have questions, please contact your health care provider. Indication: Headache Technique: CT of the head without contrast. Coronal and sagittal reformats. Bone and soft tissue windows. Comparison: CT 10/21/2024 Findings: No acute intracranial hemorrhage or extra-axial collection. No evidence of acute cortical infarction. No mass effect or midline shift. Normal cerebral volume. The ventricles are normal in size, shape and contour. There is normal carranza and white matter differentiation. The orbital contents are normal. No calvarial fractures. No lytic or sclerotic osseous lesions within the calvarium or skull base. Scalp and other imaged soft tissue structures are normal. Mastoid air cells are clear. Paranasal sinuses are well aerated. Impression: No acute intracranial abnormality. Please note that all CT scans at this facility use dose modulation, iterative reconstruction, and/or weight-based dosing when appropriate to reduce radiation dose to as low as reasonably achievable. Dictated by Dawson Ledbetter MD @ 12/31/2024 7:37:17 PM (Electronically Signed)
--- NOTE | 2024-12-31 19:13 | CRLHL7_ITS ---
For Patients: As a result of the Cures Act, medical imaging exams and procedure reports are released immediately into your electronic medical record. You may view this report before your referring provider. If you have questions, please contact your health care provider. INDICATION: Cough. TECHNIQUE: Chest 1 views. COMPARISON: June 12, 2024. FINDINGS: Cardiovascular and mediastinum: Heart size and vasculature are normal in caliber and appearance. Lungs and pleural spaces: Lungs are clear. No sign of infiltrate or mass. No sign of pleural effusion. No pneumothorax. Bones and soft tissues: No significant findings. IMPRESSION: No acute findings and no significant changes from the prior exam. Dictated by Josh Cox MD @ 12/31/2024 7:40:31 PM (Electronically Signed)
--- NOTE | 2024-12-31 19:17 | ED_ITS ---
HPI - General Adult General Date Seen: 12/31/24 Chief complaint: Headache/Migraine Stated complaint: Headache Time Seen by Provider: 12/31/24 18:41 History of Present Illness HPI narrative: Patient is a 54-year-old male who arrives here by ambulance for evaluation primarily of headache. He gets daily headaches, which are sharp and stabbing in the back left side of his head. Tonight's headache started about 30 minutes prior to arrival. He has apparently been seeing his doctor in [place] for this, he says that an MRI was ordered a couple of times but he was unable to get it because of claustrophobia. He was seen here in October for headache and had a CT noncontrast at that time which was negative. He also has a psychiatrist that he follows for PTSD. He last time I saw him was in a sober house but now lives in an apartment complex. He says he is not using anything at this time aside from THC which he uses nightly to sleep. He has a sharp stabbing pain in his left upper quadrant which he has had for years, I saw him for this actually back in 2021, at that time he had been seen previously a couple of months before I saw him and had had a CT scan because he is concerned this is related to a hernia. CT scan was negative for any findings or explanation for this pain. He continues to have this particularly when he coughs. He says he was given some kind of medicine by his primary doctor that is ?stronger than ibuprofen that he takes when he gets a headache. He does not remember what this is called and it is not in his medication list. Related Data Previous Rx's ?Medication ?Instructions ?Recorded metformin 500 mg tablet 500 mg PO DAILY #10 tabs 12/16/22 fluticasone propionate 50 2 spray intranasal QDAY #16 grams 01/13/24 mcg/actuation nasal spray,suspension levocetirizine 5 mg tablet 5 mg PO QPM #30 tabs 01/13/24 omeprazole 40 mg capsule,delayed 40 mg PO DAILY #30 caps 06/12/24 release Allergies Allergy/AdvReac Type Severity Reaction Status Date / Time No Known Drug Allergies Allergy Verified 11/26/24 12:15 Review of Systems Status of ROS: Reports: 10 or more systems reviewed and unremarkable except as noted in History and below PFSH PFSH Social History Smoking Status: Former smoker What tobacco products do you use: cigarettes Smoking quit date/years: <= 15 years ago Do you use any of these nicotine containing products: None and Vaping Products Second hand tobacco smoke exposure: Yes How often do you have a drink containing alcohol: monthly or less How many standard drinks containing alcohol do you have on a typical day: 5 or 6 How often do you have six or more drinks on one occasion: Less than monthly AUDIT-C Alcohol total score: 4 Non-prescribed substance use: marijuana (any form) Non-prescribed substance use details: smokes weed everyday service: No Exam Narrative: Exam Narrative: Vital signs reviewed In general, alert, nontoxic mid aged male. He seems comfortable, somewhat anxious peer Head: Normocephalic, atraumatic. Eyes: Sclera clear. Pupils equal and reactive. Extraocular movements are full. ENT: Mucous membranes moist. Neck: Supple without adenopathy. Heart: Regular rate and rhythm without murmur. Lungs: Clear. No increased work of breathing, crackles or wheezes. Abdomen: Obese, protuberant and soft. He notes diffuse mild tenderness, no rebound guarding or rigidity. No obvious abdominal wall hernias. Exam limited by body habitus. Extremities: Well perfused, pulses intact. No significant edema. Neurologic: Alert, conversant. Speech fluent, face symmetric. Moves all extremities equally. Skin: Warm, dry well perfused. Affect: Anxious. Const: Vital Signs, click to edit/add: Vital Signs - 24 hr 12/31/24 18:48 12/31/24 19:58 Temperature 98.2 F Pulse Rate [Pulse Oximeter] 99 84 Respiratory Rate 18 16 Blood Pressure [Ri ght Upper Arm] 144/104 H 139/100 H Pulse Oximetry 97 97 Oxygen Delivery Me thod Room Air Room Air Course Course ED Course: I went back and reviewed previous records and imaging. No findings on his CT scan from October, but given his age and his report of severe headache onset 30 minutes ago I will repeat the CT today just to make sure that there is not anything different. Given that he has daily headaches, likelihood that I will have a solution for this is relatively low. I did discuss with him that since this pain is left upper quadrant has been there for years and that he has already had a CT scan without findings I do not think repeating a CT scan is warranted tonight. I did do a chest x-ray just to make sure that he had developed an interim hiatal hernia and that there was no evidence of pneumothorax, by my review the chest x-ray is negative for these findings. He requested pain medication for his headache and I gave him IV Toradol. Review of his prescription monitoring database file shows no prescriptions for controlled substances. He feels improved after Toradol, CT of the head by my review is negative, x-ray of the chest by my review is negative, radiology reads are reviewed as well and show no acute findings. Discussed with him that he should let the ordering provider know that he was not able to do the MRI so that they can look into getting an open MRI scheduled for him. Follow-up with primary care, he says that it was actually a neurologist to order the MRI so it sounds like he has already looked in with them. Outpatient follow-up recommended, return as needed for worsening or new symptoms. Vital Signs Vital signs: Initial Vital Signs Temperature 98.2 F 12/31/24 18:48 Temperature Source Temporal Artery Scan 12/31/24 18:48 Pulse Rate 99 12/31/24 18:48 Respiratory Rate 18 12/31/24 18:48 Blood Pressure 144/104 H 12/31/24 18:48 Blood Pressure Mean 117 H 12/31/24 18:48 Pulse Oximetry 97 12/31/24 18:48 Oxygen Delivery Method Room Air 12/31/24 18:48 Vital Signs Temperature 98.2 F 12/31/24 18:48 Pulse Rate 99 12/31/24 18:48 Respiratory Rate 18 12/31/24 18:48 Blood Pressure 144/104 H 12/31/24 18:48 Pulse Oximetry 97 12/31/24 18:48 Oxygen Delivery Method Room Air 12/31/24 18:48 Temperature 98.2 F 12/31/24 18:48 Pulse Rate 84 12/31/24 19:58 Respiratory Rate 16 12/31/24 19:58 Blood Pressure 139/100 H 12/31/24 19:58 Pulse Oximetry 97 12/31/24 19:58 Oxygen Delivery Method Room Air 12/31/24 19:58 Medications Administered Medications: Discontinued Medications Generic Name Dose Route Start Last Admin Trade Name Freq PRN Reason Stop Dose Admin Ketorolac Tromethamine 15 mg 12/31/24 19:11 12/31/24 19:38 Ketorolac 15 Mg/Ml Inj IVP 12/31/24 19:12 15 mg ONCE ONE Administration Medical Decision Making Imaging Data CT scan - head: Attestation: I have reviewed the pertinent imaging results. Radiologist's impression: Patient: Casey Andrea MR#: [id number] : 1970 Acct:[id number] Loc: ED Service Date: 12/31/[address]: Ordering Physician: Gabby Valdez M.D. Date of Service: 12/31/24 Procedure(s): CT head/brain wo con Accession Number(s): [id number] cc: Gabby Valdez M.D.; Elda Grijalva PA-C~ For Patients: As a result of the Cures Act, medical imaging exams and procedure reports are released immediately into your electronic medical record. You may view this report before your referring provider. If you have questions, please contact your health care provider. Indication: Headache Technique: CT of the head without contrast. Coronal and sagittal reformats. Bone and soft tissue windows. Comparison: CT 10/21/2024 Findings: No acute intracranial hemorrhage or extra-axial collection. No evidence of acute cortical infarction. No mass effect or midline shift. Normal cerebral volume. The ventricles are normal in size, shape and contour. There is normal carranza and white matter differentiation. The orbital contents are normal. No calvarial fractures. No lytic or sclerotic osseous lesions within the calvarium or skull base. Scalp and other imaged soft tissue structures are normal. Mastoid air cells are clear. Paranasal sinuses are well aerated. Impression: No acute intracranial abnormality. Please note that all CT scans at this facility use dose modulation, iterative reconstruction, and/or weight-based dosing when appropriate to reduce radiation dose to as low as reasonably achievable. Dictated by Dawson Ledbetter MD @ 12/31/2024 7:37:17 PM Chest x-ray: Attestation: I have reviewed the pertinent imaging results. Radiologist's impression: Patient: Casey Andrea MR#: [id number] : 1970 Acct:[id number] Loc: ED Service Date: 12/31/[address]: Ordering Physician: Gabby Valdez M.D. Date of Service: 12/31/24 Procedure(s): XR chest 1V portable Accession Number(s): [id number] cc: Gabby Valdez M.D.; Elda Grijalva PA-C~ For Patients: As a result of the Cures Act, medical imaging exams and procedure reports are released immediately into your electronic medical record. You may view this report before your referring provider. If you have questions, please contact your health care provider. INDICATION: Cough. TECHNIQUE: Chest 1 views. COMPARISON: June 12, 2024. FINDINGS: Cardiovascular and mediastinum: Heart size and vasculature are normal in caliber and appearance. Lungs and pleural spaces: Lungs are clear. No sign of infiltrate or mass. No sign of pleural effusion. No pneumothorax. Bones and soft tissues: No significant findings. IMPRESSION: No acute findings and no significant changes from the prior exam. Dictated by Josh Cox MD @ 12/31/2024 7:40:31 PM Discharge Plan Discharge Clinical Impression: Chronic daily headache Patient Disposition: Home, Self-Care Condition: Stable Instructions: General Headache (ED) Additional Instructions: Make sure you let the person who ordered your MRI know that you were not able to tolerate the regular MRI scanner, they can likely order a different kind of MRI that is less claustrophobic. Check in with your primary care provider as discussed. Continue your current medications. Return as needed for worsening or new symptoms. Your imaging today is reassuring and normal. Prescriptions: No Action levocetirizine 5 mg tablet 5 mg PO QPM Qty: 30 0RF fluticasone propionate 50 mcg/actuation spray,suspension 2 spray intranasal QDAY Qty: 16 0RF Rx Instructions: administer into each nostril metformin 500 mg tablet 500 mg PO DAILY Qty: 10 2RF omeprazole 40 mg capsule,delayed release(/EC) 40 mg PO DAILY Qty: 30 3RF Follow Up/Referrals: Elda Grijalva PA-C [Primary Care Provider] - Stand Alone Forms: [facility] Info Instructions
[2024-12-31] MEDS: KETOROLAC 15 MG/ML inj IVP (19:38)
[2024-12-31 19:58] VITALS: BP 139/100; PULSE 84; RESP 16; O2SAT 97
--- OUTSIDE RECORDS SUMMARY | 2024-12-31 19:58 | XMS_ITS | Clinical Summary ---
Author Organization [employer] [facility] Address [address] [place] [id number] Care Team Providers Care Manufacturing Maintenance Mechanic Name Role Phone Daphney Sun MD Primary Care Provider [phone] Allergies No known active allergies Medications Accu-Chek Softclix Lancets 12/17/19 23 Active Accu-Chek Guide Me Glucose Mtr 12/17/19 23 Active Accu-Chek Guide test strips strip 12/17/19 23 Active cyclobenzaprine (FLEXERIL) 10 mg tabletIndications: Muscle spasm of back,Chronic bilateral low back pain without sciatica Take 1 Tablet (10 mg) by mouth 3 times daily if needed for Muscle Spasm. 30 Tablet 04/26/20 24 Active metFORMIN (GLUCOPHAGE XR) 500 mg Extended-Release tabletIndications: Type 2 diabetes mellitus without complication, without long-term current use of insulin (HC) Take 2 Tablets (1,000 mg) by mouth two times daily with meals. 360 Tablet 4 04/26/20 24 Active omeprazole 20 mg tabletIndications: Chronic GERD Take 1 Tablet (20 mg) by mouth once daily before a meal. 100 Tablet 3 04/26/20 24 Active ondansetron (ZOFRAN ODT) 4 mg disintegrating tabletIndications: Vomiting and diarrhea Place 1 Tablet (4 mg) on the tongue every 8 hours if needed for Nausea/Vomiting . 25 Tablet 08/09/20 24 Active melatonin 3 mg tabletIndications: Insomnia due to mental condition Take 1 Tablet (3 mg) by mouth at bedtime. 08/14/20 24 Active famotidine (PEPCID) 20 mg tabletIndications: Gastroesophageal reflux disease, unspecified whether esophagitis present Take 1 Tablet (20 mg) by mouth 2 times daily if needed for Heartburn. 60 Tablet 08/27/20 24 Active ARIPiprazole 10 mg tabletIndications: Major depressive disorder, recurrent severe without psychotic features (HC),Posttraumatic stress disorder Take 1 Tablet (10 mg) by mouth once daily. Further refills will be prescribed during an appointment 90 Tablet 12/13/19 25 Active ARIPiprazole (ABILIFY) 5 mg tabletIndications: Major depressive disorder, recurrent severe without psychotic features (HC),Posttraumatic stress disorder Take 1 Tablet (5 mg) by mouth once daily. 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 08/14/2024 Type 2 diabetes mellitus wit hout complication, without long-term current use of insulin 04/26/2024 Cannabis use disorder, moderate, dependence 04/13 Encounters Date Type Department Care Team Description 12/12/2024 10:00 AM CDT Office Visit [facility] [address] [place] [address] Juan Shell MD Medication Management (Has own apartment now/Has been forgetting stuff, /Not sleeping/Bad Headache in back of head) 12/12/2024 Travel 11/10/2024 9:00 AM AIR SUPPORT OPERATIONS OPERATOR Office Visit [facility] [address] [place] [address] Juan Shell MD Medication Management (electric feeling/pain on top of head, would like to increase medication for nightmares. concerns with memory and mumbling ) 11/10/2024 Telephone [facility] [address] [place] [address] Juan Shell MD SURAJ 11/10/2024 Travel 11/02/2024 3:45 PM AIR SUPPORT OPERATIONS OPERATOR Office [facility] [address] [facility] [address] Samm Hawk MD Pain (Pain in head, top on right side, started about 15 days ago, starting to forget things, hands get stiff during head pain) 11/02/2024 Travel 11/01/2024 Nurse Triage [facility] [address] [place] [address] Daphney Sun MD Headache 10/21/2024 Orders Only [facility] Scanner 1 scan: (1-Ord) [facility], HEAD/BRAIN, 10/21/2024 10/03/2024 2:00 PM AIR SUPPORT OPERATIONS OPERATOR Office Visit [facility] [address] [facility] [address] Juan Shell MD Medication Management (living on the streets right now, plans to move to [facility]. dreams, memory and depression the same. Headache-sharp and painful for past 3 days) 10/03/2024 Travel from Last 3 Months Immunizations Immunization Administration Dates Next Due COVID-19 VACCINE SPIKEVAX (M ODERNA 50MCG/0.5ML) 12YO+ PFS 06/30/2023 COVID-19 vaccine (Nayely-J&J) [place] [facility] COVID-19 vaccine ([employer]-Bio NTech 30mcg/0.3mL) 12YO+ BIVALENT PF MDV 06/25/2022 Influenza, IIV4 06/30/2023,06/25/2022 Pneumococcal Conj 20-valent (Prevnar 20) 022 Tdap 06/25/2022 Social History Tobacco Use Types Packs/Day Years Used Date Smoking Tobacco: Former Cigarettes Smokeless Tobacco: Never Tobacco Cessation:Counseling Given: No Alcohol Use Standard Drinks/Week Comments Not Currently 0 (1 standard drink = 0.6 oz pur e alcohol) last in 2020 PHQ-2 Answer Date Recorded PHQ-2 TOTAL SCORE 5 12/12/2024 Interpersonal Safety Answer Date Record ed Are you being hit, kicked, p ushed or yelled at (see row info)? No 08/27/2024 Interpersonal Safety Abuse 12 - 18 Not on file 08/27/2024 Interpersonal [...] Sign Reading Time Taken Comments Blood Pressure 143/73 12/12/2024 10:08 AM CDT Pulse 95 12/12/2024 10:08 AM CDT Temperature 36.5 C (97.7 F) 08/27/2024 5:11 PM AIR SUPPORT OPERATIONS OPERATOR Respiratory Rate 18 08/27/2024 5:11 PM AIR SUPPORT OPERATIONS OPERATOR Oxygen Saturation 94% 11/02/2024 3:53 PM AIR SUPPORT OPERATIONS OPERATOR Inhaled Oxygen Concentration - - Weight 117.6 kg (259 lb 3.2 oz) 025 10:08 AM CDT Height 172.7 cm (5' 8) 08/27/2024 5:11 PM AIR SUPPORT OPERATIONS OPERATOR Body Mass Index 39.41 08/27/2024 5:11 PM AIR SUPPORT OPERATIONS OPERATOR Plan of Treatment Upcoming Encounters Date Type Department Care Team (Late st Contact Info) Description 01/23/2025 8:00 AM CDT Office Visit [facility] [address] [place] [address] Juan Shell MD [address] [place] [address] 01/23/2025 10:00 AM CDT Office Visit [facility] [address] [place] [phone] Júnior Peters PsyD, NICKIE [address] [place] [address] 02/23/2025 8:00 AM CDT Office Visit [facility] [address] [place] [address] Marguerite Otero, PhD, [address] [place] [address] Health Maintenance Due Date Last Done Comments Hepatitis B series for Diabe hugo (1 of 3 - 19+ 3-dose series) 1991 Colonoscopy through age 75 2017 Zoster (shingles) series for age 50+ (1 of 2) 2022 COVID-19 vaccine series ( season) 2024 06/30/2023, 06/25/2022, 02/12/2021 Influenza Vaccine (Season Ended) 2025 06/30/20 23, 06/25/2022 BMI (ht and wt on same day) for age 18+ 08/14/2025 08/14/2024, 03/27/2022 Depression screening for age 12+ 12/12/2025 12/12/2024, 11/10/2024, 11/10/2024, Additional history exists Lipids for age 45-75 04/26/2029 04/26/2024, 12/26/19 Tetanus booster 06/25/2032 06/25/2022 Pneumococcal series for age 50+ Completed Tdap Completed 06/25/2022 HIV for age 15-65 Completed 04/26/2024 Hepatitis C screening for ag e 18-79 Completed 04/26/2024 Procedures Procedure Name Priority Date/Time Associated Diagnosis Comments SCAN-CT INTERPRETATION 10/21/2024 12:00 AM AIR SUPPORT OPERATIONS OPERATOR ANTI HIV 1/2 Routine 04/26/2024 9:45 AM [...] Recently Relevant to Health Maintenance Results * SCAN-CT INTERPRETATION (10/21/2024 12:00 AM AIR SUPPORT OPERATIONS OPERATOR) Anatomical Region Laterality Modality Other us Scanner OTHER Final Result * (ABNORMAL) LIPID PANEL W REFLEX MEASURED LDL (04/26/2024 9:45 AM CDT) CHOLESTEROL,TOTAL 152 100 - 199 mg/dL 04/26/2024 5:38 PM CDT [facility] Comment: Cholesterol, Total Reference Ranges Desirable <200 mg/dL Borderline 200-239 mg/dL High >=240 mg/dL TRIGLYCERIDES 183(H) <150 mg/dL 04/26/2024 5:38 PM CDT [facility] HDL CHOLESTEROL 36(L) >40 mg/dL 5:38 PM CDT [facility] NON-HDL CHOLESTEROL 116 <145 mg/dl 04/26/2024 5:38 PM CDT [facility] CHOL/HDL RATIO 4.22 <4.50 04/26/2024 5:38 PM CDT [facility] LDL CHOLESTEROL 79 <=130 mg/dL 04/26/2024 5:38 PM CDT [facility] VLDL CHOLESTEROL 37(H) <=30 mg/dL 04/26/2024 5:38 PM CDT [facility] PROVIDER ORDERED STATUS RANDOM 04/26/2024 5:38 PM CDT [facility] Blood BLOOD SPECIMEN / Unknown Venipuncture / Unknown 04/26/2024 9:45 AM CDT 04/26/2024 9:58 AM CDT us Daphney Sun MD CHEMISTRY Final Resul t [facility] [address] [place] [address], * ANTI HCV (04/26/2024 9:45 AM CDT) HEPATITIS C ANTIBODY Non-Reacti ve Non-React janel 04/26/2024 5:50 PM CDT [facility] Comment:Please note, per www [...] AM CDT Daphney Sun MD SEND OUTS Final Resul t Performing Organization Address City/[facility] Co de Phone Number [facility] [address] [address], * ANTI HIV 1/2 [84945.0] (04/26/2024 9:45 AM CDT) HIV-1/HIV-2 SCREEN Non-Reacti ve Non-Reacti ve 04/26/2024 5:18 PM CDT [facility] Comment:HIV-1 p24 and HIV-1/ HIV-2 Ab Not Detected. Blood BLOOD SPECIMEN / Unknown Venipuncture / Unknown 04/26/2024 9:45 AM CDT 04/26/2024 9:58 AM CDT us Daphney Sun MD SEND OUTS Final Resul t Performing Organization Address [facility] Co de Phone Number [facility] [address] [place] [address], from Last 3 Months or Most Recently Relevant to Health Maintenance Insurance [facility] Care Teams Manufacturing Maintenance Mechanic Relationship Specialty Start Date End Date Daphney Sun MD [address] [place] [address] PCP - General Family Practice 04/13/22
--- OUTSIDE RECORDS SUMMARY | 2024-12-31 19:58 | XMS_ITS | Clinical Summary ---
Author Organization [facility] Address [address] [place] [address] Care Team Providers Care Skinner Pelts Name Role Phone Inés Soriano D.O. Primary Care Provider [phone] Source Comments Patient records contain information from all sites at [facility]. For routine questions regarding patient records, call [phone] during business hours, M-F 8:00 AM - 5:00 PM Central Time. Record requests for emergency care only can be directed to [phone] at any time.[facility] Allergies No known active allergies Medications ORAL [...] (05/27/2020): Added automatically from request for surgery [id number] Immunizations Immunization Administration Dates Next Due PCV20 06/25/2022 SARS-COV-2 (COVID-19) - opvizor (J&J)(Discontinu ed) 02/12/2021 Tdap 06/25/2022 influenza vaccine [...] e alcohol) pt denies alcohol use today [facility] Utilities Answer Date Recorded In the past 12 months has e [employer], gas, oil, or water [employer] threatened to shut off services in your [...] with others, in a hotel, in a residential, living outside on the street, on a beach, in a car, abandoned building, bus or train station, or in a park) 09/07/2024 Sex and Gender Information Value Date Recorded Sex Assigned at Male 09/07/2024 10:36 AM FORMING DEPARTMENT END FINDER Legal Sex Male 8:43 AM FORMING DEPARTMENT END FINDER Gender Identity Male 09/07/2024 10:36 AM FORMING DEPARTMENT END FINDER Sexual Orientation Straight 09/07/2024 10 :36 AM FORMING DEPARTMENT END FINDER Last Filed Vital Signs Vital Sign Reading Time Taken Comments Blood Pressure 124/81 09/07/2024 10:27 AM FORMING DEPARTMENT END FINDER Pulse 101 09/07/2024 10:27 AM FORMING DEPARTMENT END FINDER Temperature 36.6 C (97.8 F) 09/07/2024 10:27 AM FORMING DEPARTMENT END FINDER Respiratory Rate 20 04/30/2021 2:16 AM CDT Oxygen Saturation 98% 04/30/2021 2:16 AM CDT Inhaled Oxygen Concentration - - Weight 110 kg (243 lb 6.2 oz) 09/07/2024 10:27 A M FORMING DEPARTMENT END FINDER Height 173.7 cm (5' 8.39) 09/07/2024 10:[address] Body Mass Index 36.59 09/07/2024 10:27 AM FORMING DEPARTMENT END FINDER Plan of Treatment Health Maintenance Due Date [...] this topic Medical Devices Implanted Type Area Storage Engineer Device Identifier Shelf Expiration Date Model / Serial / Lot Clp Apr End Intnl Endo 5x11 - [id number] Implanted:Qty : 1 on 05/30/2020 by Marlene Dang M.D. at [facility] Hardware e.g. pins/screws/ rods [employer] [id number] 10/13/2022 [id number] / / [id number] Procedures Procedure Name Priority Date/Time Associated Diagnosis [...] - 1.35 mg/dL 03/14/2021 9:56 PM CDT [facility] eGFR-Black/Afri can Salvadorean >90 >=60 mL/min/BSA 03/14/2021 9:56 PM CDT [facility] Comment: ----ADDITIONAL INFORMATION---- Estimated GFR calculated using the 2009 CKD_EPI creatinine equation. eGFR Non-Black/Afric an Salvadorean 81 >=60 mL/min/BSA 03/14/2021 9:56 PM CDT [facility] Comment: ----ADDITIONAL INFORMATION---- Estimated GFR calculated using the 2009 CKD_EPI creatinine equation. Calcium, Total, P 8.9 8.6 - 10.0 mg/dL 03/14/2021 9:56 PM CDT [facility] Glucose, P 176(H) 70 - 140 mg/dL 03/14/2021 9:56 PM CDT [facility] Blood (Blood, Venous) 03/14/2021 9:27 PM CDT 03/14/2021 9:37 PM CDT Roberto Rowe M.D. LAB BLOOD [place] [address], [place] [address] * (ABNORMAL) Hemoglobin A1c (04/30/2020 11:39 AM CDT) Hemoglobin A1c, B 5.7(H) 4.2 - 5.6 % 05/01/2020 4:31 PM CDT [facility] Comment: Hemoglobin A1c values of 5.7-6.4 percent indicate an increased risk for developing diabetes mellitus. In diabetic patients, HbA1c goals should be discussed with healthcare provider. Blood (Blood, Venous) 04/30/2020 11:39 AM CDT 05/01/2020 4:06 PM CDT Juana Olson M.D. LAB BLOOD ADD-O N Final Result [facility] [address] [place] [address], [place] [address] * (ABNORMAL) Lipid Panel (01/28/2018 1:27 PM CDT) Cholesterol, Total 133 mg/dL 2017 2:[address] [facility] Comment: ----REFERENCE VALUE---- Desirable: < 200 Borderline high: 200 - 239 High: > or = 240 Triglycerides 164(H) mg/dL 01/28/2018 2:[address] [facility] Comment: ----REFERENCE VALUE---- Normal: <150 Borderline high: 150-199 High: 200-499 Very high: > or =500 Cholesterol, HDL, S 36(L) >=40 mg/dL 01/28/2018 2:[address] [facility] Calculated LDL 64 mg/dL 01/28/2018 2:[address] [facility] Comment: ----REFERENCE VALUE---- Desirable: <100 Above Desirable: 100-129 Borderline high: 130-159 High: 160-189 Very high: > or =190 Cholesterol, Non-HDL, Calculated 97 mg/dL 01/28/2018 2:[address] [facility] Comment: ----REFERENCE VALUE---- Desirable: <130 Above Desirable: 130-159 Borderline high: 160-189 High: 190-219 Very high: > or =220 Blood (Blood, Venous) 01/28/2018 1:27 PM CDT 01/28/2018 1:28 PM CDT Juana Olson M.D. LAB BLOOD ADD-O N Final Result Performing Organization Address City/[facility]/ZIP Co de Phone Number [facility] [address] [place] [address], [facility] * HIV-1/-2 Ag and Ab Screen (01/28/2018 1:27 PM CDT) HIV-1/-2 Ag and Ab Screen, S Non-Reacti ve Non-Reacti ve 01/30/2018 10:52 AM CDT [facility] HIV-1 Ab, S Non-Reacti ve Non-Reacti ve 01/30/2018 10:52 AM CDT [facility] HIV-1 Ag, S Non-Reacti ve Non-Reacti ve 01/30/2018 10:52 AM CDT [facility] HIV-2 Ab, S Non-Reacti ve Non-Reacti ve 01/30/2018 10:52 AM CDT [facility] Blood (Blood, Venous) 01/28/2018 1:27 PM CDT 01/30/2018 8:30 AM CDT Juana Olson M.D. LAB MICROBIOLOG Y - BLOOD ORDERABLES Final Result [facility] [address] [place] [address], [facility] from Last 3 Months or Most Recently Relevant to Health Maintenance Insurance [facility] FATOU MARR FATOU MARR Care Teams Skinner Pelts Relationship Specialty Start Date End Date Inés Soriano D.O. [address] [place] [address] PCP - General Family Medicine 08/07/24
--- OUTSIDE RECORDS SUMMARY | 2024-12-31 19:58 | XMS_ITS | Clinical Summary ---
Author Organization [facility] Address [address] [place] [address] Care Team Providers Care Machine Plug Shaper Name Role Phone Daphney Sun MD Primary Care Provider Morgan Sinha MD Unavailable [phone] Allergies No known active allergies Medications metFORMIN ER (GLUCOPHAGE XR) 500 mg oral extended release tablet 24 HR Take 2 tablets (1,000 mg) by mouth twice a day. 04/26/2024 Active ARIPiprazole (ABILIFY) 10 mg oral tablet Take 1 tablet (10 mg) by mouth Daily. 12/12/2024 Active blood sugar diagnostic (BLOOD GLUCOSE TEST) Strip [place] strips [place] [facility]Non-[place]ark[place]; Combo Route) route Daily. 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 [place] [phone] Care Teams Machine Plug Shaper Relationship Specialty Start Date End Date Daphney Sun MD [address] [place] [address] PCP - General Family Medicine 11/03/24 Morgan Sinha MD [address] [facility] [address] [place] [address] Neurology 11/03/24
--- OUTSIDE RECORDS SUMMARY | 2024-12-31 19:58 | XMS_ITS | Encounter Summary ---
Author Organization [facility] Address [address] [place] [address] Care Team Providers Care Shop Lead Name Role Phone Daphney Sun MD Primary Care Provider [phone] Morgan Sinha MD Unavailable [phone] Reason for Referral * Consultation (Routine) - Authorized Specialty Diagnoses / Procedures Referred By Caitlin louis Referred To Contact Sleep Medicine Diagnoses CYN (obstructive sleep apnea) Bell Moore APRN, HOME RESTORATION SERVICE CLEANER [address] [place] [address] [place] [address] Phone: tel: fax: Referral ID Status Reason Start Date Expiration Date Visits Requested Visits Authorized [id number] Authorized Specialty Services Required 12/22/2024 1 1 Question Answer Consult if Abnormal? Yes Reason(s) for Referral Suspect sleep apnea (new dx) Comments Refer to [facility] for Diagnostic PSG- Snoring, daytime sleepiness * Consultation (Routine) - New Request Specialty Diagnoses / Procedures Referred By Caitlin louis Referred To Contact Neuropsychology Diagnoses Subjective memory complaints Severe cognitive impairment History of traumatic brain injury Bell Moore APRN, HOME RESTORATION SERVICE CLEANER [address] [facility] [address] [place] [address] Phone: tel: fax: Referral ID Status Reason Start Date Expiration Date Visits Requested Visits Authorized [id number] New Request Specialty Services Required 12/22/2024 1 [...] traumatic brain injury Bell Moore APRN, CNP [address] [place] [address] [place] [address] Phone: tel: fax: Referral ID Status Reason Start Date Expiration Date V isits Requested Visits Authorized [id number] Authorized 12/22/2024 1 1 Comments Refer to [facility] for MRI Brain without contrast for chronic headaches, progressive memory loss, hx of brain injury 35 years ago, hx of heavy alcohol/drug use. [facility] 08/12. Evaluate for structural abnormalities Reason for Visit * Reason Comments Consultation Headaches Encounter Details Date Type Department Care Team (Late st Contact Info) Description 12/22/2024 8:00 AM CDT Office Visit [facility]rology - 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 [facility] faxed/handed to patient FU 6 weeks documented in this encounter Progress Notes * Bell Moore APRN, CNP - 12/22/2024 8:00 AM CDT Images from the original note were not included. [facility] [address], [place] [address] [place] [address] Neurology Initial Note / Consultation Chief Complaint: [...] (BLOOD GLUCOSE TEST) Strip testing strips by [facility].(Non- Drug; Combo Route) route Daily. cyclobenzaprine (FLEXERIL) [...] Insecurity: Food Insecurity Present (09/07/2024) Received from [facility] Hunger Vital Sign Worried About Running Out of Food in the Last Year: Often true Ran Out of Food in the Last Year: Often true Transportation Needs: Unmet Transportation Needs (09/07/2024) Received from [facility] PRAPARE - Transportation Lack of Transportation (Medical): Yes Lack of Transportation (Non-Medical): Yes Physical Activity: Patient Declined (09/07/2024) Received from [facility] Exercise Vital Sign Days of Exercise per Week: Patient declined Minutes of Exercise per Session: Patient declined Stress: Not on file Social Connections: Not on file Intimate Partner Violence: Not on file Housing Stability: High Risk (09/07/2024) Received from [facility] Housing Stability What is your living situation [...] contributing factors. - Ordered brain MRI at [facility] to evaluate for structural abnormalities. - Ordered [...] disrupted sleep. - Ordered sleep study at [facility]. - Follow-up appointment scheduled in 6 weeks after completion of diagnostic studies (MRI, labs, neuropsychological evaluation, and sleep study). [facility] 2024: Documentation of current mediations reviewed every [...] documenting in the chart. BELL MOORE APRN, HOME RESTORATION SERVICE CLEANER Neurology documented in this encounter Plan of [...] (pediatric) documented in this encounter Care Teams Shop Lead Relationship Specialty Start Date End Date Daphney Sun MD [address] [place] [address] PCP - General Family Medicine 11/03/24 Morgan Sinha MD [address] [facility] [address] [place] [address] Neurology 11/03/24 documented as of this encounter
--- OUTSIDE RECORDS SUMMARY | 2024-12-31 19:58 | XMS_ITS | Referral Summary ---
Author Organization [facility] Address [address] [place] [address] Care Team Providers Care Dialysis Registered Nurse Name Role Phone Daphney Sun MD Primary Care Provider Morgan Sinha MD Unavailable [phone] Encounters Date Type Department Care Team Description 12/22/2024 8:00 AM CDT Office Visit [facility] [address] [place] [address] Camilla Walls APRN, PEER FINANCIAL COUNSELOR Intractable chronic paroxysmal hemicrania (Primary Dx); Cervicalgia; [...] (BLOOD GLUCOSE TEST) Strip [place] [facility]Non-Sarkis g; Combo Route) route Daily. 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 PMA/WICARE Member Subscriber Plan / Payer (Ef fective 2023-Present) Name:Casey Andrea Relation to Subscriber:Self Name:Casey Andrea Payer ID:[id number] (NAIC) [id number] Type:[facility] Address: [address] Care Teams Dialysis Registered Nurse Relationship Specialty Start Date End Date Daphney Sun MD [address] [place] [address] PCP - General Family Medicine 11/03/24 Morgan Sinha MD [address] [facility] [address] [place] [address] Neurology 11/03/24
== END 2024-12-31 20:25 | disposition home or self-care (01) ==
PROVIDERS: Emergency Provider Emergency Medicine; PCP Physician Assistant Surgical
DX: R51.9 Headache, unspecified (principal)
CPT/HCPCS: 70450; 71045; 96374; 99284; J1885

== ENCOUNTER 2025-01-12 11:11 | Outpatient (CLI) | payer MEDICAID, SELFPAY | END 2025-01-12 11:12 | disposition home or self-care (01) | LOC: NFLDUCREF 11:12 | PROVIDERS: PCP Physician Assistant Surgical; Visit Provider Nurse Practitioner Family | DX: N30.01 Acute cystitis with hematuria (principal); B96.20 Unspecified Escherichia coli [E. coli] as the cause of diseases classified elsewhere | CPT/HCPCS: 87086 ==

== ENCOUNTER 2025-01-12 13:27 | Emergency (ER) | payer MEDICAID, SELFPAY ==
--- OUTSIDE RECORDS SUMMARY | 2025-01-12 13:30 | XMS_ITS | Encounter Summary ---
Author Organization [facility] Address [address] [place] [address] Care Team Providers Care Medical Lab Director Name Role Phone Daphney Sun MD Primary Care Provider [phone] Morgan Sinha MD Unavailable [phone] Reason for Referral * Consultation (Routine) - Authorized Specialty Diagnoses / Procedures Referred By Caitlin louis Referred To Contact Sleep Medicine Diagnoses CYN (obstructive sleep apnea) Bell Moore APRN, MANAGER STAR [address] [place] [address] [place] [address] Phone: tel: fax: Referral ID Status Reason Start Date Expiration Date Visits Requested Visits Authorized [id number] Authorized Specialty Services Required 12/22/2024 1 1 Question Answer Consult if Abnormal? Yes Reason(s) for Referral Suspect sleep apnea (new dx) Comments Refer to [facility] for Diagnostic PSG- Snoring, daytime sleepiness * Consultation (Routine) - New Request Specialty Diagnoses / Procedures Referred By Caitlin louis Referred To Contact Neuropsychology Diagnoses Subjective memory complaints Severe cognitive impairment History of traumatic brain injury Bell Moore APRN, MANAGER STAR [address] [facility] [address] [place] [address] Phone: tel: fax: Referral ID Status Reason Start Date Expiration Date Visits Requested Visits Authorized [id number] New Request Specialty Services Required 12/22/2024 1 [...] traumatic brain injury Bell Moore APRN, CNP [address] [place] [address] [place] [address] Phone: tel: fax: Referral ID Status Reason Start Date Expiration Date V isits Requested Visits Authorized [id number] Authorized 12/22/2024 1 1 Comments Refer to [facility] for MRI Brain without contrast for chronic headaches, progressive memory loss, hx of brain injury 35 years ago, hx of heavy alcohol/drug use. [facility] 08/12. Evaluate for structural abnormalities Reason for Visit * Reason Comments Consultation Headaches Encounter Details Date Type Department Care Team (Late st Contact Info) Description 12/22/2024 8:00 AM CDT Office Visit [facility] - 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 [facility] faxed/handed to patient FU 6 weeks documented in this encounter Progress Notes * Bell Moore APRN, CNP - 12/22/2024 8:00 AM CDT Images from the original note were not included. [facility] [address], [place] [address] [place] [address] Neurology Initial Note / Consultation Chief Complaint: [...] (BLOOD GLUCOSE TEST) Strip testing strips by [facility].(Non- Drug; Combo Route) route Daily. cyclobenzaprine (FLEXERIL) [...] Insecurity: Food Insecurity Present (09/07/2024) Received from [facility] Hunger Vital Sign Worried About Running Out of Food in the Last Year: Often true Ran Out of Food in the Last Year: Often true Transportation Needs: Unmet Transportation Needs (09/07/2024) Received from [facility] PRAPARE - Transportation Lack of Transportation (Medical): Yes Lack of Transportation (Non-Medical): Yes Physical Activity: Patient Declined (09/07/2024) Received from [facility] Exercise Vital Sign Days of Exercise per Week: Patient declined Minutes of Exercise per Session: Patient declined Stress: Not on file Social Connections: Not on file Intimate Partner Violence: Not on file Housing Stability: High Risk (09/07/2024) Received from [facility] Housing Stability What is your living situation [...] contributing factors. - Ordered brain MRI at [facility] to evaluate for structural abnormalities. - Ordered [...] disrupted sleep. - Ordered sleep study at [facility]. - Follow-up appointment scheduled in 6 weeks after completion of diagnostic studies (MRI, labs, neuropsychological evaluation, and sleep study). [facility] 2024: Documentation of current mediations [...] documenting in the chart. BELL MOORE APRN, MANAGER STAR Neurology documented in this encounter Plan of [...] (pediatric) documented in this encounter Care Teams Medical Lab Director Relationship Specialty Start Date End Date Daphney Sun MD [address] [place] [address] PCP - General Family Medicine 11/03/24 Morgan Sinha MD [address] [facility] [address] [place] [address] Neurology 11/03/24 documented as of this encounter
--- OUTSIDE RECORDS SUMMARY | 2025-01-12 13:30 | XMS_ITS | Clinical Summary ---
Author Organization [facility] Address [address] [place] [address] Care Team Providers Care Wire Spooler Name Role Phone Daphney Sun MD Primary Care Provider Morgan Sinha MD Unavailable [phone] Allergies No known active allergies Medications metFORMIN ER (GLUCOPHAGE XR) 500 mg oral extended release tablet 24 HR Take 2 tablets (1,000 mg) by mouth twice a day. 04/26/2024 Active ARIPiprazole (ABILIFY) 10 mg oral tablet Take 1 tablet (10 mg) by mouth Daily. 12/12/2024 Active blood sugar diagnostic (BLOOD GLUCOSE TEST) Strip testing strips by [facility].(Non-Sarkis g; Combo Route) route Daily. 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 [place] [phone] Care Teams Wire Spooler Relationship Specialty Start Date End Date Daphney Sun MD [address] [place] [address] PCP - General Family Medicine 11/03/24 Morgan Sinha MD [address] [facility] [address] [place] [address] Neurology 11/03/24
--- OUTSIDE RECORDS SUMMARY | 2025-01-12 13:30 | XMS_ITS | Clinical Summary ---
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 1 hour to 5 hours 59 minutes, sequela in the late 08/14/2024 Type 2 diabetes mellitus wit hout complication, without long-term current use of insulin 04/26/2024 Cannabis use disorder, moderate, dependence 04/13 Encounters Date Type Department Care Team Description 12/12/2024 10:00 AM CDT Office Visit [facility] [address] [place] [address] Juan Shell MD Medication Management (Has own apartment now/Has been forgetting stuff, /Not sleeping/Bad Headache in back of head) 12/12/2024 Travel 11/10/2024 9:00 AM LABEL PASTER Office Visit [facility] [address] [place] [address] Juan Shell MD Medication Management (electric feeling/pain on top of head, would like to increase medication for nightmares. concerns with memory and mumbling ) 11/10/2024 Telephone [facility] [address] [place] [address] Juan Shell MD SURAJ 11/10/2024 Travel 11/02/2024 3:45 PM LABEL PASTER Office Visit [facility] [address] [place] [address] Samm Hawk MD Pain (Pain in head, top on right side, started about 15 days ago, starting to forget things, hands get stiff during head pain) 11/02/2024 Travel 11/01/2024 Nurse Triage [facility] [address] [place] [address] Daphney Sun MD Headache 10/21/[address] [facility] Scanner 1 scan: (1-Ord) [place] H+C, HEAD/BRAIN, 10/21/2024 from Last 3 Months Immunizations Immunization Administration Dates Next Due COVID-19 VACCINE SPIKEVAX (M ODERNA 50MCG/0.5ML) 12YO+ PFS 06/30/2023 COVID-19 vaccine (Nayely-J&J) PF, MDV COVID-19 vaccine (BuildMyMove-Bio NTech 30mcg/0.3mL) 12YO+ BIVALENT PF, MDV 06/25/2022 [...] 36.5 C (97.7 F) 08/27/2024 5:11 PM LABEL PASTER Respiratory Rate 18 08/27/2024 5:11 PM LABEL PASTER Oxygen Saturation 94% 11/02/2024 3:53 PM LABEL PASTER Inhaled Oxygen Concentration - - Weight 117.6 kg (259 lb 3.2 oz) 025 10:08 AM CDT Height 172.7 cm (5' 8) 08/27/2024 5:11 PM LABEL PASTER Body Mass Index 39.41 08/27/2024 5:11 PM LABEL PASTER Plan of Treatment Upcoming Encounters Date Type Department Care Team (Late st Contact Info) Description 01/23/2025 8:00 AM CDT Office Visit [facility] [address] [place] [address] Juan Shell MD [address] [place] [address] 01/23/2025 10:00 AM CDT Office Visit [facility] [address] [place] [id number] Júnior Peters PsyD, LP [address] [place] [address] 02/06/2025 12:30 PM CDT Office Visit [facility] [address] [place] [address] Pilar Hernández, PhD, LP [address] [place] [address] Health Maintenance Due Date Last Done Comments Hepatitis B series for Diabe hugo (1 of 3 - 19+ 3-dose series) 1991 Colonoscopy through age 75 2017 Zoster (shingles) series for age 50+ (1 of 2) 2022 COVID-19 vaccine series (2023- season) 2024 06/30/2023, 06/25/2022, 02/12/2021 Influenza Vaccine [...] Diagnosis Comments SCAN-CT INTERPRETATION 10/21/2024 12:00 AM LABEL PASTER ANTI HIV 1/2 Routine 04/26/2024 9:45 AM [...] Results * SCAN-CT INTERPRETATION (10/21/2024 12:00 AM LABEL PASTER) Anatomical Region Laterality Modality Other us Scanner OTHER Final Result * (ABNORMAL) LIPID PANEL W REFLEX MEASURED LDL (04/26/2024 9:45 AM CDT) CHOLESTEROL,TOTAL 152 100 - 199 mg/dL 04/26/2024 5:38 PM CDT [facility] Comment: Cholesterol, Total Reference Ranges Desirable <200 mg/dL Borderline 200-239 mg/dL High >=240 mg/dL TRIGLYCERIDES 183(H) <150 mg/dL 04/26/2024 5:38 PM CDT [facility] HDL CHOLESTEROL 36(L) >40 mg/dL 5:38 PM CDT [facility] NON-HDL CHOLESTEROL 116 <145 mg/dl 04/26/2024 5:38 PM CDT [facility] CHOL/HDL RATIO 4.22 <4.50 04/26/2024 5:38 PM CDT [facility] LDL CHOLESTEROL 79 <=130 mg/dL 04/26/2024 5:38 PM CDT [facility] VLDL CHOLESTEROL 37(H) <=30 mg/dL 04/26/2024 5:38 PM CDT [facility] PROVIDER ORDERED STATUS RANDOM 04/26/2024 5:38 PM CDT [facility] Blood BLOOD SPECIMEN / Unknown Venipuncture / Unknown 04/26/2024 9:45 AM CDT 04/26/2024 9:58 AM CDT us Daphney Sun MD CHEMISTRY Final Resul t Performing Organization Address [facility] Co de Phone Number [facility] [address] [place] [address], [place] * ANTI HCV (04/26/2024 9:45 AM CDT) HEPATITIS C ANTIBODY Non-Reacti ve Non-React janel 04/26/2024 5:50 PM CDT [facility] Comment:Please note, per [...] OUTS Final Resul t Performing Organization Address City/[facility]/ZIP Co de Phone Number [facility] [address] [place] [address], [place] * ANTI HIV 1/2 [94963.0] (04/26/2024 9:45 AM CDT) HIV-1/HIV-2 SCREEN Non-Reacti ve Non-Reacti ve 04/26/2024 5:18 PM CDT [facility] Comment:HIV-1 p24 and HIV-1/ HIV-2 Ab Not Detected. Blood BLOOD SPECIMEN / Unknown Venipuncture / Unknown 04/26/2024 9:45 AM CDT 04/26/2024 9:58 AM CDT us Daphney Sun MD SEND OUTS Final Resul t [facility] [address] [place] [address], from Last 3 Months or Most Recently Relevant to Health Maintenance Insurance [facility] Care Teams Load Out Person Relationship Specialty Start Date End Date Daphney Sun MD [address] [place] [address] PCP - General Family Practice 04/13/22
--- OUTSIDE RECORDS SUMMARY | 2025-01-12 13:30 | XMS_ITS | Referral Summary ---
Author Organization [facility] Address [address] [place] [address] Care Team Providers Care Forestry Aid Technician Name Role Phone Daphney Sun MD Primary Care Provider Morgan Sinha MD Unavailable [phone] Encounters Date Type Department Care Team Description 12/22/2024 8:00 AM CDT Office Visit [facility] [address] [place] [address] Camilla Walls APRN, FIELD RESEARCH ASSISTANT Intractable chronic paroxysmal hemicrania (Primary Dx); Cervicalgia; [...] (BLOOD GLUCOSE TEST) Strip testing strips by [facility]Non-Sarkis g; Combo Route) route Daily. 09/07/2024 Active [...] (12/22/2024): Added automatically from request for surgery [id number] Immunizations Name Administration Dates Next Due Influenza [...] on file Legal Sex Male 3:04 PM MEDICAL TECHNOLOGIST GENERALIST Gender Identity Not on file Sexual Orientation Not on file Plan of Treatment Not on file Insurance [facility] P[facility]/HICARE Member Subscriber Plan / Payer (Ef fective 2023-Present) Name:Casey Andrea Relation to Subscriber:Self Name:Casey Andrea Payer ID:[id number] (NAIC) _256 Type:[facility] Address: [address] Care Teams Forestry Aid Technician Relationship Specialty Start Date End Date Daphney Sun MD [address] [place] [address] PCP - General Family Medicine 11/03/24 Morgan Sinha MD [address] [facility] [address] [place] [address] Neurology 11/03/24
--- OUTSIDE RECORDS SUMMARY | 2025-01-12 13:30 | XMS_ITS | Clinical Summary ---
Author Organization [facility] Address [address] [place] [address] Care Team Providers Care Public Speaking Coach Name Role Phone Inés Soriano D.O. Primary Care Provider [phone] Source Comments Patient records contain information from all sites at [facility]. For routine questions regarding patient records, call [phone] during business hours, M-F 8:00 AM - 5:00 PM Central Time. Record requests for emergency care only can be directed to [phone] at any time.[facility] Allergies No known active allergies Medications ORAL [...] (05/27/2020): Added automatically from request for surgery [id number] Immunizations Immunization Administration Dates Next Due PCV20 06/25/2022 SARS-COV-2 (COVID-19) - TitanFile (J&J)(Discontinu ed) 02/12/2021 Tdap 06/25/2022 influenza vaccine [...] e alcohol) pt denies alcohol use today [facility] Utilities Answer Date Recorded In the past 12 months has e [employer], gas, oil, or water [employer] threatened to shut off services in your [...] with others, in a hotel, in a mcc, living outside on the street, on a beach, in a car, abandoned building, bus or train station, or in a park) 09/07/2024 Sex and Gender Information Value Date Recorded Sex Assigned at Male 09/07/2024 10:36 AM ROTARY DRIER FEEDER Legal Sex Male 8:43 AM ROTARY DRIER FEEDER Gender Identity Male 09/07/2024 10:36 AM ROTARY DRIER FEEDER Sexual Orientation Straight 09/07/2024 10 :36 AM ROTARY DRIER FEEDER Last Filed Vital Signs Vital Sign Reading Time Taken Comments Blood Pressure 124/81 09/07/2024 10:27 AM ROTARY DRIER FEEDER Pulse 101 09/07/2024 10:27 AM ROTARY DRIER FEEDER Temperature 36.6 C (97.8 F) 09/07/2024 10:27 AM ROTARY DRIER FEEDER Respiratory Rate 20 04/30/2021 2:16 AM CDT Oxygen Saturation 98% 04/30/2021 2:16 AM CDT Inhaled Oxygen Concentration - - Weight 110 kg (243 lb 6.2 oz) 09/07/2024 10:27 A M ROTARY DRIER FEEDER Height 173.7 cm (5' 8.39) 09/07/2024 10:[address] Body Mass Index 36.59 09/07/2024 10:27 AM ROTARY DRIER FEEDER Plan of Treatment Health Maintenance Due Date [...] this topic Medical Devices Implanted Type Area Cosmetician Apprentice Device Identifier Shelf Expiration Date Model / Serial / Lot Clp Apr End Intnl Endo 5x11 - [id number] Implanted:Qty : 1 on 05/30/2020 by Marlene Dang M.D. at [facility] Hardware e.g. pins/screws/ rods [employer] [id number] 10/13/2022 [id number] / / [id number] Procedures Procedure Name Priority Date/Time Associated Diagnosis [...] - 1.35 mg/dL 03/14/2021 9:[address] [facility] e[facility]-Black/Afri can Swedish >90 >=60 mL/min/BSA 03/14/2021 9:56 PM CDT [facility] Comment: ----ADDITIONAL INFORMATION---- Estimated GFR calculated using the 2009 CKD_EPI creatinine equation. eGFR Non-Black/Afric an Swedish 81 >=60 mL/min/BSA 03/14/2021 9:56 PM CDT [facility] Comment: ----ADDITIONAL INFORMATION---- Estimated GFR calculated using the 2009 CKD_EPI creatinine equation. Calcium, Total, P 8.9 8.6 - 10.0 mg/dL 03/14/2021 9:[address] Glucose, P 176(H) 70 - 140 mg/dL 03/14/2021 9:56 PM CDT [facility] Blood (Blood, Venous) 03/14/2021 9:27 PM CDT 03/14/2021 9:37 PM CDT Roberto Rowe M.D. LAB BLOOD ADD-[place] [address], [place] [address] * (ABNORMAL) Hemoglobin A1c (04/30/2020 11:39 AM CDT) Hemoglobin A1c, B 5.7(H) 4.2 - 5.6 % 05/01/2020 4:31 PM CDT [facility] Comment: Hemoglobin A1c values of 5.7-6.4 percent indicate an increased risk for developing diabetes mellitus. In diabetic patients, HbA1c goals should be discussed with healthcare provider. Blood (Blood, Venous) 04/30/2020 11:39 AM CDT 05/01/2020 4:06 PM CDT Juana Olson M.D. LAB BLOOD ADD-O N Final Result [facility] [address] [place] [address], [place] [address] * (ABNORMAL) Lipid Panel (01/28/2018 1:27 PM CDT) Cholesterol, Total 133 mg/dL 2017 2:11 PM CDT [facility] Comment: ----REFERENCE VALUE---- Desirable: < 200 Borderline high: 200 - 239 High: > or = 240 Triglycerides 164(H) mg/dL 01/28/2018 2:11 PM CDT [facility] Comment: ----REFERENCE VALUE---- Normal: <150 Borderline high: 150-199 High: 200-499 Very high: > or =500 Cholesterol, HDL, S 36(L) >=40 mg/dL 01/28/2018 2:11 PM CDT [facility] Calculated LDL 64 mg/dL 01/28/2018 2:11 PM CDT [facility] Comment: ----REFERENCE VALUE---- Desirable: <100 Above Desirable: 100-129 Borderline high: 130-159 High: 160-189 Very high: > or =190 Cholesterol, Non-HDL, Calculated 97 mg/dL 01/28/2018 2:11 PM CDT [facility] Comment: ----REFERENCE VALUE---- Desirable: <130 Above Desirable: 130-159 Borderline high: 160-189 High: 190-219 Very high: > or =220 Blood (Blood, Venous) 01/28/2018 1:27 PM CDT 01/28/2018 1:28 PM CDT Juana Olson M.D. LAB BLOOD ADD-O N Final Result Performing Organization Address City/[facility]/ZIP Co de Phone Number [facility] [address] [place] [address], [facility] * HIV-1/-2 Ag and Ab Screen (01/28/2018 1:27 PM CDT) HIV-1/-2 Ag and Ab Screen, S Non-Reacti ve Non-Reacti ve 01/30/2018 10:52 AM CDT [facility] HIV-1 Ab, S Non-Reacti ve Non-Reacti ve 01/30/2018 10:52 AM CDT [facility] HIV-1 Ag, S Non-Reacti ve Non-Reacti ve 01/30/2018 10:52 AM CDT [facility] HIV-2 Ab, S Non-Reacti ve Non-Reacti ve 01/30/2018 10:52 AM CDT [facility] Blood (Blood, Venous) 01/28/2018 1:27 PM CDT 01/30/2018 8:30 AM CDT Juana Olson M.D. LAB MICROBIOLOG Y - BLOOD ORDERABLES Final Result [facility] [address] [place] [address], [facility] from Last 3 Months or Most Recently Relevant to Health Maintenance Insurance [facility] FATOU MARR FATOU MARR Care Teams Public Speaking Coach Relationship Specialty Start Date End Date Inés Soriano D.O. [address] [place] [address] PCP - General Family Medicine 08/07/24
[2025-01-12 13:35] VITALS: BP 120/77; PULSE 92; RESP 20; TEMP 36.8; O2SAT 96; BMI 39.1
--- NOTE | 2025-01-12 13:42 | CRLHL7_ITS ---
For Patients: As a result of the Century Cures Act, medical imaging exams and procedure reports are released immediately into your electronic medical record. You may view this report before your referring provider. If you have questions, please contact your health care provider. INDICATION: Left flank pain. Three days of worsening burning with urination and left-sided back pain. COMPARISON: 06/21/2022 TECHNIQUE: CT of the abdomen and pelvis without intravenous contrast. Multiplanar axial, coronal, and sagittal reformats were reconstructed. Contrast: None. FINDINGS: Lung bases: Elevated right diaphragm. Liver: Diffuse hepatic steatosis. No cirrhosis. Gallbladder and bile ducts: Cholecystectomy clips. No bile duct dilation. Pancreas: Normal. Spleen: Normal. Adrenal glands: Normal. Kidneys: Normal renal size and position. Normal appearance of the perinephric fat. No contour deforming cyst or mass. No calculi. No urinary tract dilation. Urinary bladder: Significant inflammation around the bladder. The bladder is fairly distended. Pelvis: No cyst or mass. Vessels: Mild atherosclerosis. No aortic aneurysm. Bowel: No dilated or inflamed bowel. Normal appendix. Moderate stool burden. Lymph nodes: Prominent inguinal lymph nodes. One of the right inguinal lymph nodes is enlarged and measures 2.0 x 1.9 centimeters on series 2, image 160. This is similar to the previous exam. No worrisome adenopathy. Peritoneum: No ascites. Abdominal wall: No hernia. Bones: No fractures. No focal worrisome bone lesions. IMPRESSION: 1. Inflammation around the bladder consistent with cystitis. 2. No urinary tract calculi or urinary tract dilatation. 3. No findings of pyelonephritis on this noncontrast CT. 4. Hepatic steatosis. Please note that all CT scans at this facility use dose modulation, iterative reconstruction, and/or weight-based dosing when appropriate to reduce radiation dose to as low as reasonably achievable. Dictated by Alexandrea Sheppard MD @ 01/12/2025 2:05:28 PM (Electronically Signed)
[2025-01-12 13:45] LABS: Appearance Urine Cloudy (Clear); Bilirubin Urine Negative (Negative); Blood Urine 2+ (Negative); Color Urine Dark yellow (Yellow); Glucose Urine Negative (Negative); Ketones Urine Negative (Negative); Leukocyte Esterase Urine 1+ (Negative); Nitrite Urine Positive (Negative); Protein Urine 3+ (Negative); Specific Gravity Urine >= 1.030 (1.000-1.030); Urobilinogen Urine 0.2 (0.2-1.0)
--- NOTE | 2025-01-12 13:47 | ED.GENADULT ---
HPI - General Adult General Chief complaint: Urogenital Problems, Male Stated complaint: Ct Scan Time Seen by Provider: 01/12/25 13:29 History of Present Illness HPI narrative: Patient is a 54 gentleman comes in today with a 24 hours of left-sided flank pain as well as this urea. Seen in the urgent care earlier today and his urine showed a both white cells red cells. He has had no systemic symptoms of fevers chills nausea or vomiting. Pain is moderate. His dysuria is severe. No history of any STDs. Patient otherwise feels fine. Related Data Home Medications ?Medication ?Instructions ?Recorded ?Confirmed ondansetron 4 mg disintegrating mg PO 01/12/25 01/12/25 tablet Previous Rx's ?Medication ?Instructions ?Recorded metformin 500 mg tablet 500 mg PO DAILY #10 tabs 12/16/22 omeprazole 40 mg capsule,delayed 40 mg PO DAILY #30 caps 06/12/24 release Allergies Allergy/AdvReac Type Severity Reaction Status Date / Time No Known Drug Allergies Allergy Verified 01/12/25 13:34 Review of Systems Status of ROS: Reports: 10 or more systems reviewed and unremarkable except as noted in History and below PFSH PFS Social History Smoking Status: Former smoker What tobacco products do you use: cigarettes Smoking quit date/years: <= 15 years ago Do you use any of these nicotine containing products: None and Vaping Products Second hand tobacco smoke exposure: Yes How often do you have a drink containing alcohol: never How many standard drinks containing alcohol do you have on a typical day: 5 or 6 How often do you have six or more drinks on one occasion: Never AUDIT-C Alcohol total score: 2 Non-prescribed substance use: marijuana (any form) Non-prescribed substance use details: smokes weed everyday Exam Narrative: Exam Narrative: EXAM GENERAL: Patient appears comfortable and well. EYES: No scleral icterus. LYMPH: No supraclavicular or cervical lymphadenopathy. SKIN: Visible skin seen during exam normal or with benign process only. EXT: No dependent lower extremity pedal edema. HEART: Regular rate and rhythm with no murmurs, rubs, or gallops. LUNGS: Clear to auscultation bilaterally with no crackles or wheezes. ABD: Soft, non tender, non distended. PSYCH: Good eye contact, speech is not pressured. Const: Vital Signs, click to edit/add: Vital Signs - 24 hr 01/12/25 13:35 Temperature 98.2 F Pulse Rate [Pulse Oximeter] 92 Respiratory Rate 20 Blood Pressure [Ri ght Upper Arm] 120/77 Pulse Oximetry 96 Oxygen Delivery Me thod Room Air Course Course ED Course: CT abdomen pelvis CBC basic metabolic panel pending. UA reviewed. IV started normal saline and Toradol given. Vital Signs Vital signs: Initial Vital Signs Temperature 98.2 F 01/12/25 13:35 Temperature Source Temporal Artery Scan 01/12/25 13:35 Pulse Rate 92 01/12/25 13:35 Respiratory Rate 20 01/12/25 13:35 Blood Pressure 120/77 01/12/25 13:35 Blood Pressure Mean 91 01/12/25 13:35 Pulse Oximetry 96 01/12/25 13:35 Oxygen Delivery Method Room Air 01/12/25 13:35 Vital Signs Temperature 98.2 F 01/12/25 13:35 Pulse Rate 92 01/12/25 13:35 Respiratory Rate 20 01/12/25 13:35 Blood Pressure 120/77 01/12/25 13:35 Pulse Oximetry 96 01/12/25 13:35 Oxygen Delivery Method Room Air 01/12/25 13:35 Temperature 98.2 F 01/12/25 13:35 Pulse Rate 92 01/12/25 13:35 Respiratory Rate 20 01/12/25 13:35 Blood Pressure 120/77 01/12/25 13:35 Pulse Oximetry 96 01/12/25 13:35 Oxygen Delivery Method Room Air 01/12/25 13:35 Medications Administered Medications: Generic Name Dose Route Start Last Admin Trade Name Freq PRN Reason Stop Dose Admin Sodium Chloride 1,000 mls @ 1,000 mls/hr 01/12/25 13:47 01/12/25 14:03 0.9 % Sodium Chloride 1000 Ml IV 01/12/25 14:46 1,000 mls/hr .Q1H LUKE Administration Discontinued Medications Generic Name Dose Route Start Last Admin Trade Name Freq PRN Reason Stop Dose Admin Ketorolac Tromethamine 30 mg 01/12/25 13:46 01/12/25 14:03 Ketorolac 30 Mg/Ml Inj IVP 01/12/25 13:47 30 mg ONCE ONE Administration Medical Decision Making MDM Narrative Medical decision making narrative: Patient is a 54-year-old gentleman comes in today with signs and symptoms of UTI and UA. His labs in the clinic were fairly reasonable otherwise. He has CT scan showing no signs of stone but does have cystitis. I did give him a L of normal saline 30 mg of Toradol and I did send him with Cipro 500 mg b.i.d.. He will be in follow-up with his primary physician as needed. Lab Data Labs: Lab Results 01/12/25 Range/Units 13:37 Urine Color Dark yellow (Yellow) Urine Appearance Cloudy A (Clear) Urine pH 6.0 (5.0-8.5) Ur Specific [place] >= 1.030 (1.000-1.030) Urine Protein 3+ A (Negative) Urine Glucose (UA) Negative (Negative) Urine Ketones Negative (Negative) Urine Blood 2+ A (Negative) Urine Nitrite Positive A (Negative) Urine Bilirubin Negative (Negative) Urine Urobilinogen 0.2 (0.2-1.0) Ur Leukocyte Esterase 1+ A (Negative) Urine RBC 5-10 A (0-2) Urine WBC >100 A (0-5) Ur Squamous Epith Cells Few (None-Few) Urine Bacteria Moderate A (None) Discharge Plan Discharge Clinical Impression: Acute UTI Patient Disposition: Home, Self-Care Condition: Stable Instructions: Urinary Tract Infection in Men (ED) Additional Instructions: Cipro as directed Tylenol Motrin Rest Fluids Follow-up with your doctor as needed Activity Level: No Restrictions Discharge Diet: Regular Prescriptions: No Action ondansetron 4 mg tablet,disintegrating PO metformin 500 mg tablet 500 mg PO DAILY Qty: 10 2RF omeprazole 40 mg capsule,delayed release(DR/EC) 40 mg PO DAILY Qty: 30 3RF Follow Up/Referrals: Elda Grijalva PA-C [Primary Care Provider] - Stand Alone Forms: [employer] Info Instructions
--- OUTSIDE RECORDS SUMMARY | 2025-01-12 13:53 | XMS_ITS | Clinical Summary ---
Author Organization [facility] Address [address] [place] [address] Care Team Providers Care Broadcasting Equipment Mechanic Name Role Phone Daphney Sun MD Primary Care Provider Morgan Sinha MD Unavailable [phone] Allergies No known active allergies Medications metFORMIN ER (GLUCOPHAGE XR) 500 mg oral extended release tablet 24 HR Take 2 tablets (1,000 mg) by mouth twice a day. 04/26/2024 Active ARIPiprazole (ABILIFY) 10 mg oral tablet Take 1 tablet (10 mg) by mouth Daily. 12/12/2024 Active blood sugar diagnostic (BLOOD GLUCOSE TEST) Strip [place] strips [place] [facility]Non-Sarkis g; Combo Route) route Daily. 09/07/2024 Active [...] (12/22/2024): Added automatically from request for surgery [id number] Encounters Date Type Department Care Team Description 12/22/2024 8:00 AM CDT [facility] [address] [place] [address] Camilla Walls, SALES OPERATIONS CONSULTANT, REPATCHER Intractable chronic paroxysmal hemicrania (Primary Dx); Cervicalgia; [...] on file Legal Sex Male 3:04 PM TRAINING AND DEVELOPMENT HEAD Gender Identity Not on file Sexual Orientation [...] 06/25/2022 Hepatitis C Screening Completed 04/26/2024 Insurance [facility] Care Teams Broadcasting Equipment Mechanic Relationship Specialty Start Date End Date Daphney Sun MD [address] [place] [address] PCP - General Family Medicine 11/03/24 Morgan Sinha MD [address] [facility] [address] [place] [address] Neurology 11/03/24
--- OUTSIDE RECORDS SUMMARY | 2025-01-12 13:53 | XMS_ITS | Referral Summary ---
Author Organization [facility] Address [address] [place] [address] Care Team Providers Care Pharmacy Technician Per Diem Name Role Phone Daphney Sun MD Primary Care Provider Morgan Sinha MD Unavailable [phone] Encounters Date Type Department Care Team Description 12/22/2024 8:00 AM CDT Office Visit [facility] [address] [place] [address] Camilla Walls APRN, QUILL FIXER Intractable chronic paroxysmal hemicrania (Primary Dx); Cervicalgia; [...] (BLOOD GLUCOSE TEST) Strip testing strips by [facility].(Non-Sarkis g; Combo Route) route Daily. 09/07/2024 Active [...] (12/22/2024): Added automatically from request for surgery [id number] Immunizations Name Administration Dates Next Due Influenza [...] on file Legal Sex Male 3:04 PM MANAGER ENROLLMENT Gender Identity Not on file Sexual Orientation Not on file Plan of Treatment Not on file Insurance [facility] PMA/[facility] Address: [address] Care Teams Pharmacy Technician Per Diem Relationship Specialty Start Date End Date Daphney Sun MD [address] [place] [address] PCP - General Family Medicine 11/03/24 Morgan Sinha MD [address] [facility] [address] [place] [address] Neurology 11/03/24
--- OUTSIDE RECORDS SUMMARY | 2025-01-12 13:53 | XMS_ITS | Clinical Summary ---
Author Organization [facility] Address [address] [place] [address] Care Team Providers Care Subject Scientific Research Name Role Phone Daphney Sun MD Primary Care Provider [phone] Allergies No known active allergies Medications Accu-Chek [...] Description 12/12/2024 10:00 AM CDT Office Visit [facility] [address] [place] [address] Juan Shell MD Medication Management (Has own apartment now/Has been forgetting stuff, /Not sleeping/Bad Headache in back of head) 12/12/2024 Travel 11/10/2024 9:00 AM EPIC APPLICATION COORDINATOR Office Visit [facility] [address] [place] [address] Juan Shell MD Medication Management (electric feeling/pain on top of head, would like to increase medication for nightmares. concerns with memory and mumbling ) 11/10/2024 Telephone [facility] [address] [place] [address] Juan Shell MD SURAJ 11/10/2024 Travel 11/02/2024 3:45 PM EPIC APPLICATION COORDINATOR Office Visit [facility] [address] [place] [address] Samm Hawk MD Pain (Pain in head, top on right side, started about 15 days ago, starting to forget things, hands get stiff during head pain) 11/02/2024 Travel 11/01/2024 Nurse Triage [facility] [address] [place] [address] Daphney Sun MD Headache 10/21/2024 Orders Only [facility] Scanner 1 scan: (1-Ord) [place] H+C, HEAD/BRAIN, 10/21/2024 from Last 3 Months Immunizations Immunization Administration Dates Next Due COVID-19 VACCINE SPIKEVAX (M ODERNA 50MCG/0.5ML) 12YO+ PFS 06/30/2023 COVID-19 vaccine (Nayely-J&J) PF, MDV COVID-19 vaccine (QPD-Bio NTech 30mcg/0.3mL) 12YO+ BIVALENT PF, MDV 06/25/2022 [...] 36.5 C (97.7 F) 08/27/2024 5:11 PM EPIC APPLICATION COORDINATOR Respiratory Rate 18 08/27/2024 5:11 PM EPIC APPLICATION COORDINATOR Oxygen Saturation 94% 11/02/2024 3:53 PM EPIC APPLICATION COORDINATOR Inhaled Oxygen Concentration - - Weight 117.6 kg (259 lb 3.2 oz) 025 10:08 AM CDT Height 172.7 cm (5' 8) 08/27/2024 5:11 PM EPIC APPLICATION COORDINATOR Body Mass Index 39.41 08/27/2024 5:11 PM EPIC APPLICATION COORDINATOR Plan of Treatment Upcoming Encounters Date Type Department Care Team (Late st Contact Info) Description 01/23/2025 8:00 AM CDT Office Visit [facility] [address] [place] [address] Juan Shell MD [address] [place] [address] 01/23/2025 10:00 AM CDT Office Visit [facility] [address] [place] [phone] Júnior Peters PsyD, LP [address] [place] [address] 02/06/2025 12:30 PM CDT Office Visit [facility] [address] [place] [address] Pilar Hernández, PhD, LP [address] [place] [address] Health Maintenance Due Date Last Done Comments [...] Diagnosis Comments SCAN-CT INTERPRETATION 10/21/2024 12:00 AM EPIC APPLICATION COORDINATOR ANTI HIV 1/2 Routine 04/26/2024 9:45 AM [...] Results * SCAN-CT INTERPRETATION (10/21/2024 12:00 AM EPIC APPLICATION COORDINATOR) Anatomical Region Laterality Modality Other us Scanner OTHER Final Result * (ABNORMAL) LIPID PANEL W REFLEX MEASURED LDL (04/26/2024 9:45 AM CDT) CHOLESTEROL,TOTAL 152 100 - 199 mg/dL 04/26/2024 5:38 PM CDT [facility] [employer] LABORATORY-[facility] TRAL LABORATORY Comment: Cholesterol, Total Reference Ranges Desirable <200 mg/dL Borderline 200-239 mg/dL High >=240 mg/dL TRIGLYCERIDES 183(H) <150 mg/dL 04/26/2024 5:38 PM CDT [facility] HDL CHOLESTEROL 36(L) >40 mg/dL 5:38 PM CDT [facility] [employer]-[facility] TR[facility]ORY NON-HDL CHOLESTEROL 116 <145 mg/dl 04/26/2024 5:38 PM CDT [facility] TR[facility] LAB[facility]ORY CHOL/HDL RATIO 4.22 <4.50 04/26/2024 5:38 PM CDT [facility] LDL CHOLESTEROL 79 <=130 mg/dL 04/26/2024 5:38 PM CDT [facility] VLDL CHOLESTEROL 37(H) <=30 mg/dL 04/26/2024 5:38 PM CDT [facility] PROVIDER ORDERED STATUS RANDOM 04/26/2024 5:38 PM CDT [facility] Blood BLOOD SPECIMEN / Unknown Venipuncture / Unknown 04/26/2024 9:45 AM CDT 04/26/2024 9:58 AM CDT us Daphney Sun MD CHEMISTRY Final Resul t Performing Organization Address [facility] Co de Phone Number [facility] [address] [place] [address], [place] * ANTI HCV (04/26/2024 9:45 AM CDT) HEPATITIS C ANTIBODY Non-Reacti ve Non-React janel 04/26/2024 5:50 PM CDT [facility] TR[facility] LABORATORY Comment:Please note, per [...] OUTS Final Resul t Performing Organization Address City/[facility]/ZIP Co de Phone Number [facility] [address] [place] [address], [place] * ANTI HIV 1/2 [74683.0] (04/26/2024 9:45 AM CDT) HIV-1/HIV-2 SCREEN Non-Reacti ve Non-Reacti ve 04/26/2024 5:18 PM CDT [facility] [employer] LAB[facility]ATORY[facility] Comment:HIV-1 p24 and HIV-1/ HIV-2 Ab Not Detected. Blood BLOOD SPECIMEN / Unknown Venipuncture / Unknown 04/26/2024 9:45 AM CDT 04/26/2024 9:58 AM CDT us Daphney Sun MD SEND OUTS Final Resul t [facility] [address] [place] [address], from Last 3 Months or Most Recently Relevant to Health Maintenance Insurance [facility] Care Teams Subject Scientific Research Relationship Specialty Start Date End Date Daphney Sun MD [address] [place] [address] PCP - General Family Practice 04/13/22
--- OUTSIDE RECORDS SUMMARY | 2025-01-12 13:53 | XMS_ITS | Encounter Summary ---
Author Organization [facility] Address [address] [place] [address] Care Team Providers Care Environmental Health And Safety Intern Name Role Phone Daphney Sun MD Primary Care Provider [phone] Morgan Sinha MD Unavailable [phone] Reason for Referral * Consultation (Routine) - Authorized Specialty Diagnoses / Procedures Referred By Caitlin louis Referred To Contact Sleep Medicine Diagnoses CYN (obstructive sleep apnea) Bell Moore APRN, HOTEL ADMINISTRATIVE ASSISTANT [address] [place] [address] [place] [address] Phone: tel: fax: Referral ID Status Reason Start Date Expiration Date Visits Requested Visits Authorized [id number] Authorized Specialty Services Required 12/22/2024 1 1 Question Answer Consult if Abnormal? Yes Reason(s) for Referral Suspect sleep apnea (new dx) Comments Refer to [facility] for Diagnostic PSG- Snoring, daytime sleepiness * Consultation (Routine) - New Request Specialty Diagnoses / Procedures Referred By Caitlin louis Referred To Contact Neuropsychology Diagnoses Subjective memory complaints Severe cognitive impairment History of traumatic brain injury Bell Moore APRN, HOTEL ADMINISTRATIVE ASSISTANT [address] [facility] [address] [place] [address] Phone: tel: fax: Referral ID Status Reason Start Date Expiration Date Visits Requested Visits Authorized [id number] New Request Specialty Services Required 12/22/2024 1 [...] traumatic brain injury Bell Moore APRN, CNP [address] [place] [address] [place] [address] Phone: tel: fax: Referral ID Status Reason Start Date Expiration Date V isits Requested Visits Authorized [id number] Authorized 12/22/2024 [address] [facility] for MRI Brain without contrast for chronic headaches, progressive memory loss, hx of brain injury 35 years ago, hx of heavy alcohol/drug use. [facility] 08/12. Evaluate for structural abnormalities Reason for Visit * Reason Comments Consultation Headaches Encounter Details Date Type Department Care Team (Late st Contact Info) Description 12/22/2024 8:00 AM CDT Office Visit [facility] - [address] [phone] Bell Moore APRN, CNP [address] [place] [address] Intractable chronic paroxysmal hemicrania (Primary Dx); Cervicalgia; [...] on file Legal Sex Male 3:04 PM MUSEUM CURATOR Gender Identity Not on file Sexual Orientation Not on file documented as of this encounter Patient Instructions * Patient Instructions* Bell Moore APRN, CNP - 12/22/2024 8:00 AM CDT Refer to [facility] for: MRI Brain without contrast and sleep study Refer to Dr. Ros[facility] faxed/handed to patient FU 6 weeks documented in this encounter Progress Notes * Bell Moore APRN, CNP - 12/22/2024 8:00 AM CDT Images from the original note were not included. [facility] [address], [address] [place] [address] Neurology Initial Note / Consultation Chief Complaint: [...] (BLOOD GLUCOSE TEST) Strip testing strips by [facility]Non- Drug; Combo Route) route Daily. cyclobenzaprine (FLEXERIL) [...] Insecurity: Food Insecurity Present (09/07/2024) Received from [facility] Hunger Vital Sign Worried About Running Out of Food in the Last Year: Often true Ran Out of Food in the Last Year: Often true Transportation Needs: Unmet Transportation Needs (09/07/2024) Received from [facility] PRAPARE - Transportation Lack of Transportation (Medical): Yes Lack of Transportation (Non-Medical): Yes Physical Activity: Patient Declined (09/07/2024) Received from [facility] Exercise Vital Sign Days of Exercise per Week: Patient declined Minutes of Exercise per Session: Patient declined Stress: Not on file Social Connections: Not on file Intimate Partner Violence: Not on file Housing Stability: High Risk (09/07/2024) Received from [facility] Housing Stability What is your living situation [...] contributing factors. - Ordered brain MRI at [facility] to evaluate for [...] disrupted sleep. - Ordered sleep study at [facility]. - Follow-up appointment scheduled in 6 weeks after completion of diagnostic studies (MRI, labs, neuropsychological evaluation, and sleep study). [facility] 2024: Documentation of current mediations reviewed every [...] documenting in the chart. BELL MOORE APRN, HOTEL ADMINISTRATIVE ASSISTANT Neurology documented in this encounter Plan of [...] (pediatric) documented in this encounter Care Teams Environmental Health And Safety Intern Relationship Specialty Start Date End Date Daphney Sun MD [address] [place] [address] PCP - General Family Medicine 11/03/24 Morgan Sinha MD [address] [facility] [address] [place] [address] Neurology 11/03/24 documented as of this encounter
--- OUTSIDE RECORDS SUMMARY | 2025-01-12 13:53 | XMS_ITS | Clinical Summary ---
Author Organization [facility] Address [address] [place] [address] Care Team Providers Care Cisco Unified Communications Engineer Name Role Phone Inés Soriano D.O. Primary Care Provider [phone] Source Comments Patient records contain information from all sites at [facility]. For routine questions regarding patient records, call [phone] during business hours, M-F 8:00 AM - 5:00 PM Central Time. Record requests for emergency care only can be directed to [phone] at any time.[facility] Allergies No known active allergies Medications ORAL [...] (05/27/2020): Added automatically from request for surgery [id number] Immunizations Immunization Administration Dates Next Due PCV20 06/25/2022 SARS-COV-2 (COVID-19) - [employer] (J&J)(Discontinu ed) 02/12/2021 Tdap 06/25/2022 influenza vaccine [...] e alcohol) pt denies alcohol use today [facility] Utilities Answer Date Recorded In the past 12 months has e Unique [employer], gas, oil, or water [employer] threatened to shut off services in your [...] with others, in a hotel, in a nursing home, living outside on the street, on a beach, in a car, abandoned building, bus or train station, or in a park) 09/07/2024 Sex and Gender Information Value Date Recorded Sex Assigned at Male 09/07/2024 10:36 AM FOREIGN STUDENT ADVISER TEACHER Legal Sex Male 8:43 AM FOREIGN STUDENT ADVISER TEACHER Gender Identity Male 09/07/2024 10:36 AM FOREIGN STUDENT ADVISER TEACHER Sexual Orientation Straight 09/07/2024 10 :36 AM FOREIGN STUDENT ADVISER TEACHER Last Filed Vital Signs Vital Sign Reading Time Taken Comments Blood Pressure 124/81 09/07/2024 10:27 AM FOREIGN STUDENT ADVISER TEACHER Pulse 101 09/07/2024 10:27 AM FOREIGN STUDENT ADVISER TEACHER Temperature 36.6 C (97.8 F) 09/07/2024 10:27 AM FOREIGN STUDENT ADVISER TEACHER Respiratory Rate 20 04/30/2021 2:16 AM CDT Oxygen Saturation 98% 04/30/2021 2:16 AM CDT Inhaled Oxygen Concentration - - Weight 110 kg (243 lb 6.2 oz) 09/07/2024 10:27 A M FOREIGN STUDENT ADVISER TEACHER Height 173.7 cm (5' 8.39) 09/07/2024 10:[address] Body Mass Index 36.59 09/07/2024 10:27 AM FOREIGN STUDENT ADVISER TEACHER Plan of Treatment Health Maintenance Due Date [...] this topic Medical Devices Implanted Type Area Skills Trainer Device Identifier Shelf Expiration Date Model / Serial / Lot Clp Apr End Intnl Endo 5x11 - [id number] Implanted:Qty : 1 on 05/30/2020 by Marlene Dang M.D. at [facility] Hardware e.g. pins/screws/ rods [employer] [id number] 10/13/2022 [id number] / / [id number] Procedures Procedure Name Priority Date/Time Associated Diagnosis [...] [facility] e[facility]-Black/Afri can Welsh >90 >=60 mL/min/BSA 03/14/2021 9:56 PM CDT [facility] Comment: ----ADDITIONAL INFORMATION---- Estimated GFR calculated using the 2009 CKD_EPI creatinine equation. eGFR Non-Black/Afric an Welsh 81 >=60 mL/min/BSA 03/14/2021 9:56 PM CDT [facility] Comment: ----ADDITIONAL INFORMATION---- Estimated GFR calculated using the 2009 CKD_EPI creatinine equation. Calcium, Total, P 8.9 8.6 - 10.0 mg/dL 03/14/2021 9:56 PM CDT [facility] Glucose, P 176(H) 70 - 140 mg/dL 03/14/2021 9:56 PM CDT [facility] Blood (Blood, Venous) 03/14/2021 9:27 PM CDT 03/14/2021 9:37 PM CDT Roberto Rowe M.D. LAB BLOOD [place] [address], [place] [address] * (ABNORMAL) Hemoglobin A1c (04/30/2020 11:39 AM CDT) Hemoglobin A1c, B 5.7(H) 4.2 - 5.6 % 05/01/2020 4:31 PM CDT [facility] Comment: Hemoglobin A1c values of 5.7-6.4 percent indicate an increased risk for developing diabetes mellitus. In diabetic patients, HbA1c goals should be discussed with healthcare provider. Blood (Blood, Venous) 04/30/2020 11:39 AM CDT 05/01/2020 4:06 PM CDT Juana Olson M.D. LAB BLOOD ADD-O N Final Result [facility] [address] [place] [address], [facility] [place] [address] * (ABNORMAL) Lipid Panel (01/28/2018 1:27 PM CDT) Cholesterol, Total 133 mg/dL 2017 2:11 PM CDT [facility] Comment: ----REFERENCE VALUE---- Desirable: < 200 Borderline high: 200 - 239 High: > or = 240 Triglycerides 164(H) mg/dL 01/28/2018 2:11 PM CDT [facility] Comment: ----REFERENCE VALUE---- Normal: <150 Borderline high: 150-199 High: 200-499 Very high: > or =500 Cholesterol, HDL, S 36(L) >=40 mg/dL 01/28/2018 2:11 PM CDT [facility] Calculated LDL 64 mg/dL 01/28/2018 2:11 PM CDT [facility] Comment: ----REFERENCE VALUE---- Desirable: <100 Above Desirable: 100-129 Borderline high: 130-159 High: 160-189 Very high: > or =190 Cholesterol, Non-HDL, Calculated 97 mg/dL 01/28/2018 2:11 PM CDT [facility] Comment: ----REFERENCE VALUE---- Desirable: <130 Above Desirable: 130-159 Borderline high: 160-189 High: 190-219 Very high: > or =220 Blood (Blood, Venous) 01/28/2018 1:27 PM CDT 01/28/2018 1:28 PM CDT Juana Olson M.D. LAB BLOOD ADD-O N Final Result Performing Organization Address City/[facility]/ZIP Co de Phone Number [facility] [address] [place] [phone], [facility] * HIV-1/-2 Ag and Ab Screen (01/28/2018 1:27 PM CDT) HIV-1/-2 Ag and Ab Screen, S Non-Reacti ve Non-Reacti ve 01/30/2018 10:52 AM CDT [facility] HIV-1 Ab, S Non-Reacti ve Non-Reacti ve 01/30/2018 10:52 AM CDT [facility] HIV-1 Ag, S Non-Reacti ve Non-Reacti ve 01/30/2018 10:52 AM CDT [facility] HIV-2 Ab, S Non-Reacti ve Non-Reacti ve 01/30/2018 10:52 AM CDT [facility] Blood (Blood, Venous) 01/28/2018 1:27 PM CDT 01/30/2018 8:30 AM CDT Juana Olson M.D. LAB MICROBIOLOG Y - BLOOD ORDERABLES Final Result [facility] [address] [place] [address], [facility] from Last 3 Months or Most Recently Relevant to Health Maintenance Insurance [facility] FATOU MARR FATOU MARR Care Teams Cisco Unified Communications Engineer Relationship Specialty Start Date End Date Inés Soriano D.O. [address] [place] [phone] PCP - General Family Medicine 08/07/24
[2025-01-12 13:58] LABS: WBC Urine >100 (0-5)
[2025-01-12 13:59] LABS: Bacteria Urine Moderate; Squamous Epithelial Cell Urine Few (None-Few)
[2025-01-12] MEDS: 0.9 % SODIUM CHLORIDE 1000 ml 1,000 ML IV (14:03)
[2025-01-12] MEDS: KETOROLAC 30 MG/ML inj IVP (14:03)
[2025-01-12 14:20] VITALS: BP 113/60; PULSE 90; RESP 16; TEMP 37.1
== END 2025-01-12 14:38 | disposition home or self-care (01) ==
PROVIDERS: Emergency Provider Internal Medicine; PCP Physician Assistant Surgical
DX: N39.0 Urinary tract infection, site not specified (principal)
CPT/HCPCS: 74176; 80048; 81001; 85025; 87086; 96374; 99283; 99284; J1885; J7030

== ENCOUNTER 2025-04-05 13:03 | Emergency (ER) | payer MEDICAID, SELFPAY ==
[2025-04-05] VITALS (10 sets, daily range): BP systolic 128–151; BP diastolic 59–89; PULSE 70–77; RESP 10–23; TEMP 36.1; O2SAT 95–100; BMI 38.1
--- OUTSIDE RECORDS SUMMARY | 2025-04-05 13:19 | XMS_ITS | Clinical Summary ---
Author Organization [facility] Address [address] [place] [address] Care Team Providers Care Dairy Technologist Name Role Phone Inés Soriano D.O. Primary Care Provider [phone] Source Comments Patient records contain information from all sites at [facility]. For routine questions regarding patient records, call [phone] during business hours, M-F 8:00 AM - 5:00 PM Central Time. Record requests for emergency care only can be directed to [phone] at any time.[facility] Allergies No known active allergies Medications ORAL [...] B12 1 test daily. 100 test 1 4 Active omeprazole (PriLOSEC) [address] capsule Take 1 capsule (40 mg total) by mouth daily before morning meal. 90 capsule 1 4 Active Active Problems Problem Noted Date Diagnosed [...] (05/27/2020): Added automatically from request for surgery [id number] Encounters Date Type Department Care Team Description 03/13/2025 Orders Only [facility] Inés Soriano, D.Destini. Diabetes Mellitus Type 2 Hyperglycemia (HCC) from Last 3 Months Immunizations Immunization Administration Dates Next Due PCV20 06/25/2022 SARS-COV-2 (COVID-19) - QUYHN (J&J)(Discontinu ed) 02/12/2021 Tdap 06/25/2022 influenza vaccine [...] e alcohol) pt denies alcohol use today [facility] Utilities Answer Date Recorded In the past 12 months has th e [place], gas, oil, or water [employer] threatened to shut off services in your home? Patient declined 09/07/2024 Hunger Vital Sign Answer Date Recorded Within the past 12 months, y ou worried that your food would run out before you got the money to buy more. Often true 09/07/20 24 Within the past 12 months, t he [...] PHQ-9 Total Score (max 27) 20 09/07 Housing Stability Answer Date Recorded What is your living situatio n today? I do not have a steady place to live (I am temporarily staying with others, in a hotel, in a senior living, living outside on the street, on a beach, in a car, abandoned building, bus or train station, or in a park) 09/07/2024 Sex and Gender Information Value Date Recorded Sex Assigned at Male 09/07/2024 10:36 AM WORKFLOW DEVELOPER Legal Sex Male 8:43 AM WORKFLOW DEVELOPER Gender Identity Male 09/07/2024 10:36 AM WORKFLOW DEVELOPER Sexual Orientation Straight 09/07/2024 10 :36 AM WORKFLOW DEVELOPER Last Filed Vital Signs Vital Sign Reading Time Taken Comments Blood Pressure 124/81 09/07/2024 10:27 AM WORKFLOW DEVELOPER Pulse 101 09/07/2024 10:27 AM WORKFLOW DEVELOPER Temperature 36.6 C (97.8 F) 09/07/2024 10:27 AM WORKFLOW DEVELOPER Respiratory Rate 20 04/30/2021 2:16 AM CDT Oxygen Saturation 98% 04/30/2021 2:16 AM CDT Inhaled Oxygen Concentration - - Weight 110 kg (243 lb 6.2 oz) 09/07/2024 10:27 A M WORKFLOW DEVELOPER Height 173.7 cm (5' 8.39) 09/07/2024 10:[address] Body Mass Index 36.59 09/07/2024 10:27 AM WORKFLOW DEVELOPER Plan of Treatment Health Maintenance Due Date Last Done Comments CT Colonography 1972 Cologuard 1972 Colonoscopy 1972 Colorectal Cancer Screening 1972 Dilated Eye Exam 1972 FIT 1972 Hepatitis B Vaccines (1 of 3 - 19+ 3-dose series) 1991 Zoster Vaccines (1 of 2) 2022 COVID-19 Vaccine ( season) 2024 06/30/2023, 06/25/2022, 02/12/2021 Depression Screening (Annual PHQ-2) 09/13/2024 09/07/2024 Hemoglobin A1C 10/27/2024 04/26/2024, 12/12, 04/30/2020, Additional history exists Lipid (Cholesterol) Screening 04/26/2025 04/26/2024, 12/25/2022, 01/28/2018 Influenza Vaccine (#1) 2025 06/30/2023, 2021 Creatinine Level (Kidney Function Test) 08/09/2025 08/09/2024, [...] this topic Medical Devices Implanted Type Area Wood Treating Inspector Device Identifier Shelf Expiration Date Model / Serial / Lot Clp Apr End Intnl Endo 5x11 - [id number] Implanted:Qty : 1 on 05/30/2020 by Marlene Dang M.D. at [facility] Hardware e.g. pins/screws/ rods Med[employer] [id number] 10/13/2022 [id number] / / [id number] Procedures Procedure Name Priority Date/Time Associated Diagnosis [...] - 1.35 mg/dL 03/14/2021 9:56 PM CDT [facility] eGFR-Black/Afri can Citizen Of [place] >90 >=60 mL/min/BSA 03/14/2021 9:56 PM CDT [facility] Comment: ----ADDITIONAL INFORMATION---- Estimated GFR calculated using the 2009 CKD_EPI creatinine equation. eGFR Non-Black/Afric an Citizen Of [place] 81 >=60 mL/min/BSA 03/14/2021 9:56 PM CDT [facility] Comment: ----ADDITIONAL INFORMATION---- Estimated GFR calculated using the 2009 CKD_EPI creatinine equation. Calcium, Total, P 8.9 8.6 - 10.0 mg/dL 03/14/2021 9:56 PM CDT [facility] Glucose, P 176(H) 70 - 140 mg/dL 03/14/2021 9:56 PM CDT [facility] Blood (Blood, Venous) 03/14/2021 9:27 PM CDT 03/14/2021 9:37 PM CDT Roberto Rowe M.D. LAB BLOOD ADD-ON Fi nal Result Performing Organization Address [facility]/ZIP Co de Phone Number [facility] [address] [place] [address], [facility] [address] [place] [address] * (ABNORMAL) Hemoglobin A1c (04/30/2020 11:39 AM CDT) Hemoglobin A1c, B 5.7(H) 4.2 - 5.6 % 05/01/2020 4:31 PM CDT [facility] Comment: Hemoglobin A1c values of 5.7-6.4 percent indicate an increased risk for developing diabetes mellitus. In diabetic patients, HbA1c goals should be discussed with healthcare provider. Blood (Blood, Venous) 04/30/2020 11:39 AM CDT 05/01/2020 4:06 PM CDT Juana Olson M.D. LAB BLOOD ADD-O N Final Result [facility] [address] [place] [address], [place] [address] * (ABNORMAL) Lipid Panel (01/28/2018 1:27 PM CDT) Cholesterol, Total 133 mg/dL 2017 2:11 PM CDT [facility] Comment: ----REFERENCE VALUE---- Desirable: < 200 Borderline high: 200 - 239 High: > or = 240 Triglycerides 164(H) mg/dL 01/28/2018 2:11 PM CDT [facility] Comment: ----REFERENCE VALUE---- Normal: <150 Borderline high: 150-199 High: 200-499 Very high: > or =500 Cholesterol, HDL, S 36(L) >=40 mg/dL 01/28/2018 2:11 PM CDT [facility] Calculated LDL 64 mg/dL 01/28/2018 2:11 PM CDT [facility] Comment: ----REFERENCE VALUE---- Desirable: <100 Above Desirable: 100-129 Borderline high: 130-159 High: 160-189 Very high: > or =190 Cholesterol, Non-HDL, Calculated 97 mg/dL 01/28/2018 2:11 PM CDT [facility] Comment: ----REFERENCE VALUE---- Desirable: <130 Above Desirable: 130-159 Borderline high: 160-189 High: 190-219 Very high: > or =220 Blood (Blood, Venous) 01/28/2018 1:27 PM CDT 01/28/2018 1:28 PM CDT Juana Olson M.D. LAB BLOOD ADD-O N Final Result [facility] [address] [place] [address] * HIV-1/-2 Ag and Ab Screen (01/28/2018 1:27 PM CDT) HIV-1/-2 Ag and Ab Screen, S Non-Reacti ve Non-Reacti ve 01/30/2018 10:52 AM CDT [facility] HIV-1 Ab, S Non-Reacti ve Non-Reacti ve 01/30/2018 10:52 AM CDT [facility] HIV-1 Ag, S Non-Reacti ve Non-Reacti ve 01/30/2018 10:52 AM CDT [facility] HIV-2 Ab, S Non-Reacti ve Non-Reacti ve 01/30/2018 10:52 AM CDT [facility] Blood (Blood, Venous) 01/28/2018 1:27 PM CDT 01/30/2018 8:30 AM CDT Juana Olson M.D. LAB MICROBIOLOG Y - BLOOD ORDERABLES Final Result [facility] [address] [place] [address], [facility] from Last 3 Months or Most Recently Relevant to Health Maintenance Insurance [facility] FATOU MARR FATOU MARR Care Teams Dairy Technologist Relationship Specialty Start Date End Date Inés Soriano D.O. [address] [place] [phone] PCP - General Family Medicine 08/07/24
--- OUTSIDE RECORDS SUMMARY | 2025-04-05 13:19 | XMS_ITS | Clinical Summary ---
Author Organization [facility] Address [address] [place] [address] Care Team Providers Care Manager Transfer Name Role Phone Daphney Sun MD Primary Care Provider [phone] Allergies No known active allergies Medications Accu-Chek Softclix Lancets 12/17/19 23 Active Accu-Chek Guide Me Glucose Mtr 12/17/19 23 Active Accu-Chek Guide test strips strip 12/17/19 23 Active cyclobenzaprine (FLEXERIL) 10 mg tabletIndications: Muscle spasm of back,Chronic bilateral low back pain without sciatica Take 1 Tablet (10 mg) by mouth 3 times daily if needed for Muscle Spasm. 30 Tablet 04/26/20 24 Active omeprazole 20 mg tabletIndications: Chronic GERD Take 1 Tablet (20 mg) by mouth once daily before a meal. 100 Tablet 3 04/26/20 24 Active ondansetron (ZOFRAN ODT) 4 mg disintegrating tabletIndications: Vomiting and diarrhea Place 1 Tablet (4 mg) on the tongue every 8 hours if needed for Nausea/Vomiting . 25 Tablet 08/09/20 24 Active famotidine (PEPCID) 20 mg tabletIndications: Gastroesophageal reflux disease, unspecified whether esophagitis present Take 1 Tablet (20 mg) by mouth 2 times daily if needed for Heartburn. 60 Tablet 08/27/20 24 Active melatonin 5 mg tab tabletIndications: Insomnia due to mental condition Take 1-2 Tablets (5-10 mg) by mouth at bedtime. 01/24/20 25 Active metFORMIN 500 mg Extended-Release tabletIndications: Type 2 diabetes mellitus without complication, without long-term current use of insulin (HC) Take 2 Tablets (1,000 mg) by mouth two times daily with meals. 360 Tablet 4 01/26/20 25 Active ARIPiprazole 10 mg tabletIndications: Major depressive disorder, recurrent severe without psychotic features (HC),Posttraumatic stress disorder Take 1 Tablet (10 mg) by mouth once daily. 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 1 hour to 5 hours 59 minutes, sequela in the late 08/14/2024 Uncontrolled type 2 diabetes mellitus with hyper glycemia 04/26/2024 Cannabis use disorder, moderate, dependence 04/13 Encounters Date Type Department Care Team Description 04/05/2025 Nurse Triage [facility] [address] [place] [address] Daphney Sun MD Chest Pain 04/04/2025 Telephone [facility] [address] [place] [address] Juan Shell MD Referral (bilingual social worker ) 03/06/2025 11:00 AM CDT Office Visit [facility] [address] [place] [address] Juan Shell MD Follow Up; Medication Management (has not been able to get prescriptions at [facility], not sleeping, depressed ) 03/06/2025 10:00 AM CDT Office Visit [facility] [address] [place] [phone] Júnior Peters PsyD, LP [facility] 03/06/2025 Travel 02/02/2025 Travel 01/30/2025 Telephone [facility] [address] [facility] [address] [place], [place] [id number] Pilar Hernández, PhD, LP Appointment Reminder 01/26/2025 Telephone [facility] [address] [place] [address] Daphney Sun MD Screening ([facility]) 01/25/2025 1:00 PM CDT Office Visit [facility] [address] [place] [address] Abbe Palmer MD Headache (Last night-not able to sleep, took melatonin. Gets dizzy with headaches. ); Physical (54 year old); Back Pain (Slowly has to get up from bed, x2-3 months, ibuprofen sometimes helps); Medication Management (Not sure if he is taking Pepcid or Omeprazole) 01/25/2025 Travel 01/23/2025 10:00 AM CDT Office Visit [facility] [address] [place] [address] Júnior Peters PsyD, Mental Health Intake 01/23/2025 8:00 AM CDT Office Visit [facility] [address] [place] [address] Juan Shell MD Medication Management (Doing okay/Has been out of Abilify for approx 15 days) 01/23/2025 Telephone [facility] [address] [place] [address] Daphney Sun MD Headache 01/23/2025 Travel from Last 3 Months Immunizations Immunization Administration Dates Next Due COVID-19 VACCINE SPIKEVAX (M ODERNA 50MCG/0.5ML) 12YO+ PFS 06/30/2023 COVID-19 vaccine (Nayely-J&J) [place] COVID-19 vaccine (Patients Know Best-Bio NTech 30mcg/0.3mL) 12YO+ BIVALENT PF MDV 06/25/2022 Hepatitis B (Adult) 01/25/2025 Influenza, IIV4 06/30/2023,06/25/2022 Pneumococcal Conj 20-valent (Prevnar 20) 022 Tdap 06/25/2022 Social History Tobacco Use Types Packs/Day Years Used Date Smoking Tobacco: Former Cigarettes Smokeless Tobacco: Never Tobacco Cessation:Counseling Given: Yes Alcohol Use Standard Drinks/Week Comments Not Currently 0 (1 standard drink = 0.6 oz pur e alcohol) last in 2020 PHQ-2 Answer Date Recorded PHQ-2 TOTAL SCORE 6 03/06/2025 Interpersonal Safety Answer Date Record ed Are [...] Sign Reading Time Taken Comments Blood Pressure 119/74 03/06/2025 11:01 AM CDT Pulse 73 03/06/2025 11:01 AM CDT Temperature 36.5 C (97.7 F) 08/27/2024 5:11 PM NUT GRADER Respiratory Rate 18 08/27/2024 5:11 PM NUT GRADER Oxygen Saturation 94% 01/25/2025 12:55 PM CDT Inhaled Oxygen Concentration - - Weight 118.4 kg (261 lb) 03/06/2025 11:01 AM CDT Height 172.7 cm (5' 8) 01/25/2025 12:55 PM CDT Body Mass Index 39.68 01/25/2025 12:55 PM CDT Plan of Treatment Upcoming Encounters Date Type Department Care Team (Late st Contact Info) Description 04/10/2025 1:00 PM CDT Office Visit [facility] [address] [place] [address] Juan Shell MD [address] [place] [address] Health Maintenance Due Date Last Done Comments Colonoscopy through age 75 2017 Zoster (shingles) series for age 50+ (1 of 2) 2022 COVID-19 vaccine series ( season) 2024 06/30/2023, 06/25/2022, 02/12/2021 Hepatitis B series for 19+ ( 2 of 3 - 19+ 3-dose series) 02/22/2025 01/25/2025 Influenza Vaccine (#1) 2025 06/30/2023, 2021 BMI (ht and wt on same day) for age 18+ 01/25/2026 01/25/2025, 08/14/2024, 03/27/2022 Depression screening for age 12+ 03/06/2026 03/06/2025, 01/23/2025, 01/23/2025, Additional history exists Lipids for age 45-75 01/25/2030 01/25/2025, 04/26/2024, 12/25/2022 Tetanus booster 06/25/2032 06/25/2022 Pneumococcal series for age 50+ Completed Hepatitis C screening for ag e 18-79 Completed 04/26/2024 HIV for age 15-65 Completed 01/25/2025, 04/26/2024 Procedures Procedure Name Priority Date/Time Associated Diagnosis Comments HEMOGLOBIN A1C Routine 01/25/2025 1:58 PM CDT Type 2 diabetes mellitus without complication, without long-term current use of insulin (HC) LIPID PANEL W REFLEX MEASURED LDL Routine 01/25/2025 1:58 PM CDT Lipid screening BASIC METABOLIC PANEL Routine 01/25/2025 1:58 PM CDT Type 2 diabetes mellitus without complication, without long-term current use of insulin (HC) ANTI HIV 1/2 Routine 01/25/2025 1:58 PM CDT Possible exposure to STD GC CHLAMYDIA TRACH PROBE Routine 01/25/2025 1:57 PM CDT Possible exposure to STD TREPONEMA PALLIDUM Routine 01/25/2025 1: 57 PM CDT Possible exposure to STD URINE ALBUMIN TO CREATININE RATIO, RANDOM Routine 01/25/2025 1:57 PM CDT Type 2 diabetes mellitus without complication, without long-term current use of insulin (HC) ANTI HCV Routine 04/26/2024 9:45 AM CDT Need for hepatitis C screening test from Last 3 Months or Most Recently Relevant to Health Maintenance Results * (ABNORMAL) HEMOGLOBIN A1C (01/25/2025 1:58 PM CDT) HEMOGLOBIN A1C 8.1(H) <5.7 % [facility] Comment: For someone without known diabetes, a hemoglobin A1c value of 6.5% or greater indicates that they may have diabetes and this should be confirmed with a follow-up test. For someone with known diabetes, a value <7% indicates that their diabetes is well controlled and a value greater than or equal to 7% indicates suboptimal control. A1c targets should be individualized based on duration of diabetes, age, comorbid conditions, and other considerations. Currently, no consensus exists regarding use of hemoglobin A1c for diagnosis of diabetes for children. Blood BLOOD SPECIMEN / Unknown 01/25/2025 1:58 PM CDT 01/25/2025 2:00 PM CDT Abbe Palmer MD CHEMISTRY Final Result [facility] [address] [place] [address], [facility] [address] [place] [address] * (ABNORMAL) LIPID PANEL W REFLEX MEASURED LDL (01/25/2025 1:58 PM CDT) CHOLESTEROL, TOTAL 153 <200 mg/dL [facility] HDL CHOLESTEROL 41 > OR = 40 mg/dL [facility] TRIGLYCERIDES 190(H) <150 mg/dL [facility] LDL-CHOLESTEROL 84 mg/dL (calc) [facility] Comment: Reference range: <100 Desirable range <100 mg/dL for primary prevention; <70 mg/dL for patients with CHD or diabetic patients with > or = 2 CHD risk factors. LDL-C is now calculated using the Flor calculation, which is a validated novel method providing better accuracy than the Friedewald equation in the estimation of LDL-C. Juan CARRENO et al. ALEJANDRA. 2013;310(19): 7603-4115 (http://education.Learnhive/faq/CBB476) CHOL/HDLC RATIO 3.7 <5.0 (calc) [facility] NON HDL CHOLESTEROL 112 <130 mg/dL (calc) [facility] Comment: For patients with diabetes plus 1 major ASCVD risk factor, treating to a non-HDL-C goal of <100 mg/dL (LDL-C of <70 mg/dL) is considered a therapeutic option. Blood BLOOD SPECIMEN / Unknown 01/25/2025 1:58 PM CDT 01/25/2025 2:00 PM CDT Abbe Palmer MD CHEMISTRY Final Result [facility] [address] [place] [address], [facility] [address] [place] [address] * ANTI HIV 1/2 (01/25/2025 1:58 PM CDT) HIV AG/AB, 4TH GEN NON-REACT LISSY NON-REACT LISSY [facility] Comment: HIV-1 antigen and HIV-1/HIV-2 antibodies were not detected. There is no laboratory evidence of HIV infection. PLEASE NOTE: This information has been disclosed to you from records whose confidentiality may be protected by state law. If your state requires such protection, then the state law prohibits you from making any further disclosure of the information without the specific written consent of the person to whom it pertains, or as otherwise permitted by law. A general authorization for the release of medical or other information is NOT sufficient for this purpose. For additional information please refer to http://education.ZoomForth.Wikipixel/faq/XSN246 (This link is being provided for informational/ educational purposes only.) The performance of this assay has not been clinically validated in patients less than 2 years old. Blood BLOOD SPECIMEN / Unknown 01/25/2025 1:58 PM CDT 01/25/2025 2:00 PM CDT Abbe Palmer MD SEND OUTS Final Result [facility] [address] [place] [address], [facility] [address] [place] [address] * (ABNORMAL) BASIC METABOLIC PANEL (01/25/2025 1:58 PM CDT) GLUCOSE 108(H) 65 - 99 mg/dL [facility] Comment: Fasting reference interval For someone without known diabetes, a glucose value between 100 and 125 mg/dL is consistent with prediabetes and should be confirmed with a follow-up test. UREA NITROGEN (BUN) 11 7 - 25 mg/dL [facility] CREATININE 1.15 0.70 - 1.30 mg/dL [facility] EGFR 77 > OR = 60 mL/min/1. 73m2 [facility] BUN/CREATININE RATIO SEE NOTE: 6 - 22 (calc) [facility] Comment: Not Reported: BUN and Creatinine are within reference range. SODIUM 136 135 - 146 mmol/L [facility] POTASSIUM 4.2 3.5 - 5.3 mmol/L [facility] CHLORIDE 102 98 - 110 mmol/L [facility] CARBON DIOXIDE 25 20 - 32 mmol/L [facility] ELECTROLYTE BALANCE 9 7 - 17 mmol/L (calc) [facility] CALCIUM 9.6 8.6 - 10.3 mg/dL [facility] Blood BLOOD SPECIMEN / Unknown 01/25/2025 1:58 PM CDT 01/25/2025 2:00 PM CDT Abbe Palmer MD CHEMISTRY Final Result [facility] [address] [place] [address], [facility] [address] [place] [address] * TREPONEMA PALLIDUM (01/25/2025 1:57 PM CDT) TREPONEMA PALLIDUM Non-Reacti ve Non-Reacti ve 01/26/2025 1:14 AM CDT [facility] Blood BLOOD SPECIMEN / Unknown [facility] / Unknown 01/25/2025 1:57 PM CDT 01/25/2025 1:57 PM CDT Abbe Palmer MD SEND OUTS Final Result Performing Organization Address City/[facility]/ZIP Co de Phone Number [facility] [address] [address], [place] * GC & CHLAMYDIA DNA PCR [[id number]] (01/25/2025 1:57 PM CDT) CHLAMYDIA PROBE Negative 4:19 AM CDT [facility] N GONORRHOEAE PROBE Negative 01/26/2025 4:19 AM CDT [facility] Other URINE SPECIMEN / Unknown Non-Blood / Unknown 01/25/2025 1:57 PM CDT 01/25/2025 1:57 PM CDT Abbe Palmer MD MICROBIOLOGY Final Result [facility] [address] [place] [address], [place] * (ABNORMAL) URINE ALBUMIN TO CREATININE RATIO, RANDOM (01/25/2025 1:57 PM CDT) ALB RAND URINE 262.0 mg/L 01/25/2025 11:20 PM CDT [facility] CREATININE,URIN E 1.37 g/L 01/25/2025 11:20 PM CDT [facility] ALBUMIN TO CREATININE RATIO,RAND UR 191.2(H) <30.0 mg/g creat 01/25/2025 11:20 PM CDT [facility] Urine URINE SPECIMEN / Unknown Non-Blood / Unknown 01/25/2025 1:57 PM CDT 01/25/2025 1:57 PM CDT Narrative [facility] - 01/25/2025 11:20 PM CDT If Albumin to Creatinine Ratio is elevated, consider the following: Elevations seen with incipient nephropathy associated with diabetes mellitus or hypertension. Stress, exercise,hematuria, and urinary tract infection may also produce elevated results. If clinically indicated, confirm with 24 Hour Albumin to Creatinine Ratio. Abbe Palmer MD URINE Final Result [facility] [address] [place] [address], [place] * ANTI HCV (04/26/2024 9:45 AM CDT) HEPATITIS C ANTIBODY Non-Reacti ve Non-React lissy 04/26/2024 5:50 PM CDT [facility] Comment:Please note, per www .CDC.gov: If [...] Sun MD SEND OUTS Final Resul t [facility] [address] [place] [address], from Last 3 Months or Most Recently Relevant to Health Maintenance Insurance [facility] Care Teams Manager Transfer Relationship Specialty Start Date End Date Daphney Sun MD [address] [place] [address] PCP - General Family Practice 04/13/22
--- OUTSIDE RECORDS SUMMARY | 2025-04-05 13:19 | XMS_ITS | Encounter Summary ---
Author Organization [facility] Address [address] [place] [address] Care Team Providers Care Mica Miner Blasting Name Role Phone Inés Soriano D.O. Primary Care Provider Encounter Details Date Type Department Care Team (Late st Contact Info) Description 03/13/2025 Orders Only [facility] P[facility] Inés Soriano D.O. [address] [place] [address] Diabetes Mellitus Type 2 Hyperglycemia (HCC) Social History Tobacco Use Types Packs/Day Years Used Date Smoking Tobacco: Former Smokeless Tobacco: Never Alcohol Use Standard Drinks/Week Comments Not Currently 0 (1 standard drink = 0.6 oz pur e alcohol) pt denies alcohol use today [facility] Utilities Answer Date Recorded In the past 12 months has e [employer] gas, oil, or water [employer] threatened to shut off services in your [...] Sex Assigned at Male 09/07/2024 10:36 AM QUALITY TECHNICIAN Legal Sex Male 8:43 AM QUALITY TECHNICIAN Gender Identity Male 09/07/2024 10:36 AM QUALITY TECHNICIAN Sexual Orientation Straight 09/07/2024 10 :36 AM QUALITY TECHNICIAN documented as of this encounter Plan of Treatment Scheduled Orders Name Type Priority Associated Diagnoses Orde r Schedule Hemoglobin A1c Lab Routine Diabetes Mellitus Type 2 Hyperglycemia (HCC) Expected: 03/27/2025, Expires: 08/30/2025 Lipid Panel Lab Routine Diabetes Mellitus Type 2 Hyperglycemia (HCC) Expected: 03/27/2025, Expires: 08/30/2025 documented as of this encounter Visit Diagnoses Diagnosis Diabetes Mellitus Type 2 Hyperglycemia (HCC) documented in this encounter Additional Health Concerns Assessment Noted Time PHQ-9 Depression Total Score: 20 024 10:29 AM QUALITY TECHNICIAN documented as of this encounter Care Teams Mica Miner Blasting Relationship Specialty Start Date End Date Inés Soriano D.O. [address] [place] [id number] PCP - General Family Medicine 08/07/24 documented as of this encounter
--- OUTSIDE RECORDS SUMMARY | 2025-04-05 13:19 | XMS_ITS | Clinical Summary ---
Author Organization [facility] Address [address] [place] [id number] Care Team Providers Care Steam Fitter Name Role Phone Daphney Sun MD Primary Care Provider Morgan Sinha MD Unavailable [phone] Allergies No known active allergies Medications metFORMIN ER (GLUCOPHAGE XR) 500 mg oral extended release tablet 24 HR Take 2 tablets (1,000 mg) by mouth twice a day. 4 Active ARIPiprazole (ABILIFY) 10 mg oral tablet Take 1 tablet (10 mg) by mouth Daily. 5 Active blood sugar diagnostic (BLOOD GLUCOSE TEST) Strip testing strips by [facility].(Non-Drug; Combo Route) route Daily. 4 Active cyclobenzaprin e (FLEXERIL) 10 mg oral tablet Take 1 tablet (10 mg) by mouth three times a day as needed. 4 Active famotidine (PEPCID) 20 mg oral tablet Take 1 tablet (20 mg) by mouth twice a day as needed. 4 Active melatonin 3 mg oral tablet Take 1 tablet (3 mg) by mouth Daily. 4 Active omeprazole (PRILOSEC) 40 mg oral delayed release capsule Take 1 capsule (40 mg) by mouth once daily. 90 capsule 3 5 Active ondansetron (ZOFRAN) 4 mg oral ODT Dissolve 1 tablet (4 mg) in mouth every 8 (eight) hours as needed. 90 tablet 3 5 Active Sumatriptan Succinate 6 mg/0.5 mL SubQ Inject 0.5 mL under the skin when headache comes on. May repeat once 2 hours later if symptoms do not resolve. Max 2 does in 24 hours 3 mL 3 5 Active M[employer] When headache comes on use oxygen (100 percent) is administered via a nonrebreathing facial mask with a flow rate of at least 12 L/minute with the patient in a sitting, upright position. The inhalation should continue for 15 minutes to prevent the attack from returning. 5 Active verapamiL (CALAN) 80 mg oral tablet Take 1 tablet (80 mg) by mouth three times a day. 270 tablet 3 5 Active LORazepam (ATIVAN) 1 mg oral tablet Take 1 tablet (1 mg) by mouth as directed. Take one pill 30 minutes prior to MRI. If needed can use a second pill for anxiety. 2 tablet 5 Active Active Problems Problem Noted Date Diagnosed [...] (12/22/2024): Added automatically from request for surgery [id number] Encounters Date Type Department Care Team Description 02/02/2025 10:00 AM CDT Office Visit [facility] - 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 Gender Identity Not on file Sexual Orientation Not on file Last Filed Vital Signs Vital Sign Reading Time Taken Comments Blood Pressure - - Pulse - - Temperature - - Respiratory Rate - - Oxygen Saturation - - Inhaled Oxygen Concentration - - Weight 113.4 kg (250 lb) 02/02/2025 10:18 AM CDT Height 172.7 cm (5' 8) 02/02/2025 10:18 AM CDT Body Mass Index 38.01 02/02/2025 10:18 AM CDT Plan of Treatment Health Maintenance Due Date Last Done Comments Colonoscopy 1972 Eye Exam 1972 Lipid Screening 1972 Anxiety Follow-Up (SHRUTHI-7) 1973 Depression Follow-Up (PHQ-9) 1973 HgbA1C 07/31/2020 04/30/2020 Yearly Review of HCD 2022 Zoster Vaccine (1 of 2) 2022 COVID-19 Vaccine (4 - 2023-2 5 season) 2024 06/30/2023, 06/25/2022, 02/12/2021 Influenza Vaccine (#1) 2025 , 06/25/2022 Creatinine 01/25/2026 01/25/2025, 03/14/2021 Microalbumin Q12 Month 01/25/2026 01/25/2025 Adult Tetanus Booster 06/25/2032 06/25/2022 RSV Vaccines (1 - 1-dose 75+ series) 2047 Pneumococcal 50+ Years Completed 06/25/2022 Hepatitis C Screening Completed 04/26/2024 Meningococcal B Vaccine Aged Out No l onger eligible based on patient's age to complete this topic Insurance [facility] Care Teams Steam Fitter Relationship Specialty Start Date End Date Daphney Sun MD [address] [place] [address] PCP - General Family Medicine 11/03/24 Morgan Sinha MD [address] [facility] [address] [place] [address] Neurology 11/03/24
--- NOTE | 2025-04-05 13:23 | ED.GENADULT ---
HPI - General Adult General Date Seen: 04/05/25 Chief complaint: Shortness of Breath/Dyspnea Stated complaint: chest pain when breathing heavily Time Seen by Provider: 04/05/25 13:05 Source: patient Mode of arrival: ambulatory Limitations: no limitations History of Present Illness HPI narrative: Patient is a 54-year-old male presenting to emergency department for shortness of breath and chest pain. States symptoms have been going on for the past week. Denies having symptoms like this before. States the pain seems to come and go he notices it most when he takes a deep breath. States he had pain this morning when he 1st got to the ED but is currently pain free even with deep breaths. States nothing particular seems to bring the pain on it but when does occurs midsternal radiating to the left side of his chest. Describes it as sharp and a pressure sensation. No history of heart disease in himself. No history of lung disease. Does admit to smoking marijuana multiple times a day. Has not had any fevers but has had chills. States he is anxious about the chest pain as it is not getting better. Does state he has some intermittent abdominal pain. States the pain will being multiple difference POTS and has been going on for years. Is not any different over the past week. Denies headache, vision changes, weakness, numbness, diarrhea, constipation. Will get some lightheadedness when the pain starts. Related Data Home Medications ?Medication ?Instructions ?Recorded ?Confirmed ondansetron 4 mg disintegrating mg PO 01/12/25 01/12/25 tablet Previous Rx's ?Medication ?Instructions ?Recorded metformin 500 mg tablet 500 mg PO DAILY #10 tabs 12/16/22 omeprazole 40 mg capsule,delayed 40 mg PO DAILY #30 caps 06/12/24 release Allergies Allergy/AdvReac Type Severity Reaction Status Date / Time No Known Drug Allergies Allergy Verified 04/05/25 13:23 Review of Systems Status of ROS: Reports: 10 or more systems reviewed and unremarkable except as noted in History and below PFS PFS Social History Smoking Status: Former smoker What tobacco products do you use: cigarettes Smoking quit date/years: <= 15 years ago Do you use any of these nicotine containing products: None and Vaping Products Second hand tobacco smoke exposure: Yes How often do you have a drink containing alcohol: never How many standard drinks containing alcohol do you have on a typical day: 5 or 6 How often do you have six or more drinks on one occasion: Never AUDIT-C Alcohol total score: 2 Non-prescribed substance use: marijuana (any form) Non-prescribed substance use details: smokes weed everyday Exam Narrative: Exam Narrative: Const: Well-nourished, Well-developed, in mild distress Eyes: PERRL, no conjunctival injection, and symmetrical lids HENT: Atraumatic external nose and ears. Moist mucous membranes. Neck: Symmetric, trachea midline, No thyromegaly. CVS: RRR, No murmurs or gallops. Peripheral pulses 2+ and equal in all extremities RESP: Unlabored respiratory effort. Clear to auscultation bilaterally. GI: Nontender/Nondistended, No rebound or guarding. MSK:Extremities w/o deformity, Normal Active ROM Skin: Warm, Dry. No rashes or lesions. Neuro: Normal Muscle tone, No focal neurological deficits. Psych: Awake, Alert, & Oriented x3. Appears anxious Const: Vital Signs, click to edit/add: Vital Signs - 24 hr 04/05/25 13:17 04/05/25 13:19 04/05/25 13:30 Temperature 96.9 F L Pulse Rate 76 77 Pulse Rate [Pulse Oximeter] 75 Respiratory Rate 23 16 13 Blood Pressure Blood Pressure [Ri ght Upper Arm] 135/80 Pulse Oximetry 98 95 100 Oxygen Delivery Me thod Room Air 04/05/25 13:45 04/05/25 14:00 04/05/25 14:32 Temperature Pulse Rate 77 70 Pulse Rate [Pulse Oximeter] Respiratory Rate 11 L 10 L Blood Pressure Blood Pressure [Ri ght Upper Arm] Pulse Oximetry 97 98 97 Oxygen Delivery Me thod 04/05/25 15:06 04/05/25 15:15 Temperature Pulse Rate 72 70 Pulse Rate [Pulse Oximeter] Respiratory Rate 23 13 Blood Pressure 151/59 H Blood Pressure [Ri ght Upper Arm] Pulse Oximetry 96 97 Oxygen Delivery Me thod Course Vital Signs Vital signs: Initial Vital Signs Pulse Rate 76 04/05/25 13:17 Respiratory Rate 23 04/05/25 13:17 Pulse Oximetry 98 04/05/25 13:17 Vital Signs Pulse Rate 76 04/05/25 13:17 Respiratory Rate 23 04/05/25 13:17 Pulse Oximetry 98 04/05/25 13:17 Temperature 96.9 F L 04/05/25 13:19 Pulse Rate 70 04/05/25 15:15 Respiratory Rate 13 04/05/25 15:15 Blood Pressure 151/59 H 04/05/25 15:06 Pulse Oximetry 97 04/05/25 15:15 Oxygen Delivery Method Room Air 04/05/25 13:19 Medical Decision Making MDM Narrative Medical decision making narrative: Patient is a 54-year-old male presenting to the emergency department for chest pain and shortness of breath. Is currently symptom free. The differential diagnosis of chest pain is broad and includes common etiologies such as musculoskeletal strain, GERD, pneumonia, etc. More serious etiologies considered include PE, coronary artery disease, pneumothorax, aortic dissection, aortic aneurysm. Will do a D-dimer to look for signs of PE. Chest x-ray ordered to look for signs of pneumonia pneumothorax. EKG and troponin ordered to look for cardiac abnormalities. He is otherwise mervat stable and my concern for aortic dissection and aortic aneurysm is low. EKG reviewed by myself shows no acute concerning abnormalities although there is some mildly increased T-wave flattening noted in leads V2 compared to his most previous EKG in 06/13/2024. Chest x-ray reviewed myself the radiologist shows no acute concerning abnormalities. Lab work returned showing no acute concerning abnormalities. Of note his point of care troponin was elevated but staff states that the she has been giving false elevated troponins all morning. Lab run troponin was within normal limits. Considering how long his symptoms have been going on for I do not believe repeat troponin is necessary at this time. Overall he is doing well is safe for discharge. Unsure was causing his pain but do not see any emergent issues. States he is feeling asymptomatic Lab Data Labs: Lab Results 04/05/25 04/05/25 04/05/25 Range/Units 13:31 13:50 14:22 WBC 10.84 (4.50-11.00) K/uL RBC 4.98 (4.30-5.90) m/uL Hgb 14.0 (13.5-17.5) gm/dL Hct 42.2 (37.0-53.0) % MCV 85 (80-100) fL MCH 28 (26-34) pg MCHC 33 (32-36) gm/dL RDW Coeff of Emma 12.8 (11.5-15.5) % Plt Count 297 (140-440) K/uL Neut % (Auto) 59.7 (42.0-72.0) % Lymph % (Auto) 23.1 (20-44) % [place] % (Auto) 7.7 (0.0-11.0) % Eos % (Auto) 8.6 H (0.0-7.0) % Baso % (Auto) 0.5 (0.0-3.0) % Neut # (Auto) 6.49 (1.7-7.0) K/uL Lymph # (Auto) 2.50 (0.90-2.90) K/uL [place] # (Auto) 0.80 (0.00-0.90) K/UL Eos # (Auto) 0.90 H (0.00-0.50) K/uL Baso # (Auto) 0.05 (0.00-0.30) K/uL Abs Immat Gran (auto) 0.04 (0.00-0.30) K/uL Imm/Tot Granulo (auto) 0.4 % D-Dimer Quant (PE/DVT) 0.38 (0.00-0.50) ug/ml Sodium 136 (135-149) mmol/L Potassium 4.3 (3.6-5.1) mmol/L Chloride 104 (96-114) mmol/L Carbon Dioxide 24 (20-32) mmol/L Anion Gap 8 (7-15) mEq/L BUN 11 (7-30) mg/dL Creatinine 1.0 (0.5-1.5) mg/dL Estimated Creat Clear 83.60 Estimated GFR 91 ml/min Glucose 102 (60-115) mg/dL Calcium 9.4 (8.4-10.6) mg/dL Magnesium 1.8 (1.5-2.6) mg/dL Troponin I < 0.01 (0.01-0.04) ng/mL SARS-CoV-2 (PCR) Negative SARS-CoV-2 (Negative) Influenza Type A (PCR) Negative PCR FLU A (Negative) Influenza Type B (PCR) Negative PCR FLU B (Negative) RSV (PCR) Negative PCR RSV (Negative) POC Troponin I 0.06 H (0.01-0.04) ng/ml Imaging Data Chest x-ray: Attestation: I have reviewed the pertinent imaging results. Radiologist's impression: No evidence of active pulmonary disease. Dictated by Manuelito Elliott MD @ 04/05/2025 2:16:50 PM ECG Data Attestation: I personally reviewed and interpreted this ECG as follows: Prior ECG tracings: available for review Interpretation: Normal sinus rhythm with a rate 73 beats per minute, normal intervals, normal axis, no ST T abnormalities. There are more flattened T-waves seen in V2 compared to previous EKGs. Discharge Plan Discharge Clinical Impression: Atypical chest pain Patient Disposition: Home, Self-Care Condition: Stable Instructions: Noncardiac Chest Pain (ED) Additional Instructions: I am unsure what is causing your chest pain and shortness of breath but did not see any acute concerning abnormalities. I do recommend close follow-up with your primary care provider. Return to emergency department for new or worsening symptoms. Take Tylenol and ibuprofen for pain Prescriptions: No Action ondansetron 4 mg tablet,disintegrating PO metformin 500 mg tablet 500 mg PO DAILY Qty: 10 2RF omeprazole 40 mg capsule,delayed release(DR/EC) 40 mg PO DAILY Qty: 30 3RF Follow Up/Referrals: Elda Grijalva PA-C [Primary Care Provider, Orthopedics] Stand Alone Forms: MyHealth Info Instructions
--- NOTE | 2025-04-05 13:31 | CRLHL7_ITS ---
For Patients: As a result of the Cures Act, medical imaging exams and procedure reports are released immediately into your electronic medical record. You may view this report before your referring provider. If you have questions, please contact your health care provider. INDICATION: Chest pain. COMPARISON: December 31, 2024. TECHNIQUE: PA and lateral views of the chest were acquired FINDINGS: TUBES AND LINES: None. HEART AND MEDIASTINUM: The heart size is normal. The mediastinal contour appears normal for patient age. LUNGS AND PLEURAL SPACES: The lungs appear normal.The pleural spaces are unremarkable. OSSEOUS STRUCTURES: Age-appropriate appearance. No acute focal finding. IMPRESSION: No evidence of active pulmonary disease. Dictated by Manuelito Elliott MD @ 04/05/2025 2:16:50 PM (Electronically Signed)
[2025-04-05 14:46] LABS: Chloride* 104 mmol/L (96-114); Potassium* 4.3 mmol/L (3.6-5.1); Sodium* 136 mmol/L (135-149)
[2025-04-05 14:48] LABS: PCR FLU A Negative PCR FLU A (Negative); PCR FLU B Negative PCR FLU B (Negative); PCR RSV Negative PCR RSV (Negative); SARS PCR* Negative SARS-CoV-2 (Negative)
[2025-04-05 14:48] LABS: Hematocrit* 42.2 % (37.0-53.0); Hemoglobin* 14.0 gm/dL (13.5-17.5); Immature Granulocytes Abs Auto 0.04 K/uL (0.00-0.30); Immature Granulocytes Pct Auto 0.4 %; Lymphocytes Absolute Auto 2.50 K/uL (0.90-2.90); Mean Corpuscular HGB Conc 33 gm/dL (32-36); Mean Corpuscular Hemoglobin 28 pg (26-34); Mean Corpuscular Volume 85 fL (80-100); RDW Coefficient of Variation % 12.8 % (11.5-15.5); Red Blood Count* 4.98 m/uL (4.30-5.90); White Blood Count* 10.84 K/uL (4.50-11.00)
[2025-04-05 14:49] LABS: Anion Gap 8 mEq/L (7-15); Blood Urea Nitrogen* 11 mg/dL (7-30); Calcium* 9.4 mg/dL (8.4-10.6); Carbon Dioxide* 24 mmol/L (20-32); Creatinine* 1.0 mg/dL (0.5-1.5); Est. Creatinine Clearance* 83.60; Estimated Glomerular Filt Rate 91 ml/min; Glucose* 102 mg/dL (60-115)
[2025-04-05 14:50] LABS: Slide Review Reflex No
[2025-04-05 14:55] LABS: Troponin, Point-of-Care* 0.06 ng/ml (0.01-0.04)
[2025-04-05 15:04] LABS: D Dimer Quantitative* 0.38 ug/ml (0.00-0.50)
== END 2025-04-05 15:41 | disposition home or self-care (01) ==
PROVIDERS: Emergency Provider Student in an Organized Health Care Education/Training Program
DX: R07.9 Chest pain, unspecified (principal)
CPT/HCPCS: 36415; 71046; 80048; 83735; 84484; 85025; 85379; 87637; 93005; 99284

== ENCOUNTER 2025-07-30 00:57 | Outpatient (CLI) | payer MEDICAID, SELFPAY | END 2025-07-30 00:58 | disposition home or self-care (01) | LOC: AMB 08-02 14:33 | PROVIDERS: Visit Provider Emergency Medicine | DX: R06.09 Other forms of dyspnea (principal) | CPT/HCPCS: A0998 ==

== ENCOUNTER 2025-07-31 20:09 | Outpatient (CLI) | payer MEDICAID, SELFPAY | END 2025-07-31 20:10 | disposition home or self-care (01) | PROVIDERS: Visit Provider Emergency Medicine | DX: R06.09 Other forms of dyspnea (principal) | CPT/HCPCS: A0425; A0427 ==

== ENCOUNTER 2025-07-31 20:29 | Emergency (ER) | payer MEDICAID, SELFPAY ==
[2025-07-31 20:33] VITALS: BP 134/88; PULSE 94; RESP 20; TEMP 36.9; O2SAT 98; BMI 40.9
--- NOTE | 2025-07-31 20:43 | ED_ITS ---
HPI - SOB/Dyspnea General Time Seen by Provider: 20:43 Date Seen: 07/31/25 Chief Complaint: Unspecified Complaint, Adult Stated Complaint: Difficulty breathing Time Seen by Provider: 07/31/25 20:42 Source: patient and EMS Mode of arrival: EMS History of Present Illness HPI Narrative: Casey is a 55 yo male has a past medical history of hypertension, diabetes who presents to the ED from home by EMS for evaluation of SOB. Patient complains of shortness of breath which he reports at rest, with exertion, and reports worse at nighttime. Patient reports symptoms have been ongoing for the past month who reports worsening symptoms over the past 1 week. Patient states he is unable to sleep due to this shortness of breath. Patient states that he wakes up at night and jumps out of bed as a feels as if he is choking or cannot breathe. Patient states that he thinks he has sleep apnea and needs a sleep study and is sleeping machine. Patient denies any fever, chills, cough or cold-like symptoms. Denies any chest pain, abdominal pain, lower extremity edema or calf tenderness, no prolonged immobilization, no history of blood clots, no recent travel. No other complaints. Patient does smoke. Patient reports difficulty controlling his blood glucose level and states sugars are usually in the 300s. Related Data Home Medications ?Medication ?Instructions ?Recorded ?Confirmed ondansetron 4 mg disintegrating mg PO 01/12/25 5 tablet Previous Rx's ?Medication ?Instructions ?Recorded metformin 500 mg tablet 500 mg PO DAILY #10 tabs 02/02 omeprazole 40 mg capsule,delayed 40 mg PO DAILY #30 ca ps 06/12/24 release clotrimazole 1 % topical cream 1 applic topical BID 2 weeks #30 07/25/25 grams Allergies Allergy/AdvReac Type Severity Reaction Status Date / Time No Known Drug Allergies Allergy Verified 07/25/25 13:15 Review of Systems Narrative: Past medical history, past surgical history, medications, allergies, family history, and social history were reviewed with the patient. No additional pertinent items. A medically appropriate review of systems was performed with pertinent positives and negatives noted in HPI, all other systems negative. PFSH PFSH Social History Smoking Status: Former smoker What tobacco products do you use: cigarettes Smoking quit date/years: <= 15 years ago Do you use any of these nicotine containing products: None and Vaping Products Second hand tobacco smoke exposure: Yes How often do you have a drink containing alcohol: never How many standard drinks containing alcohol do you have on a typical day: 5 or 6 How often do you have six or more drinks on one occasion: Never AUDIT-C Alcohol total score: 2 Non-prescribed substance use: marijuana (any form) Non-prescribed substance use details: smokes weed everyday service: No Exam Narrative: Exam Narrative: General: Afebrile, no acute distress HEENT: Normocephalic, atraumatic, conjunctiva normal. MMM Neck: non-tender, supple Cardio: regular rate. regular rhythm Resp: Normal work of breathing, no respiratory distress, lungs clear bilaterally, no wheezing, rhonchi, rales Chest/Back: no visual signs of trauma, no midline tenderness, no CVA tenderness Abdomen: soft, non distension, no tenderness, no peritoneal signs Neuro: alert and fully oriented. CN II-XII grossly intact. Grossly normal strength and sensation in all extremities. MSK: no deformities. Normal range of motion, no lower extremity edema or calf tenderness Integumentary/Skin: no rash visualized, normal color Psych: normal affect, normal behavior Const: Vital Signs, click to edit/add: Vital Signs - 24 hr 07/31/25 20:33 07/31/25 22:33 Temperature 98.5 F Pulse Rate 80 Pulse Rate [Pulse Oximeter] 94 Respiratory Rate 20 Blood Pressure 102/60 Blood Pressure [Ri ght Upper Arm] 134/88 Pulse Oximetry 98 95 Oxygen Delivery Me thod Room Air Course Vital Signs Vital signs: Initial Vital Signs Temperature 98.5 F 07/31/25 20:33 Temperature Source Temporal Artery Scan 07/31/25 20:33 Pulse Rate 94 07/31/25 20:33 Pulse Rhythm Regular 07/31/25 20:33 Respiratory Rate 20 07/31/25 20:33 Blood Pressure 134/88 07/31/25 20:33 Blood Pressure Mean 103 07/31/25 20:33 Blood Pressure Position Sitting 07/31/25 20:33 Pulse Oximetry 98 07/31/25 20:33 Oxygen Delivery Method Room Air 07/31/25 20:33 Vital Signs Temperature 98.5 F 07/31/25 20:33 Pulse Rate 94 07/31/25 20:33 Respiratory Rate 20 07/31/25 20:33 Blood Pressure 134/88 07/31/25 20:33 Pulse Oximetry 98 07/31/25 20:33 Oxygen Delivery Method Room Air 07/31/25 20:33 Temperature 98.5 F 07/31/25 20:33 Pulse Rate 80 07/31/25 22:33 Respiratory Rate 20 07/31/25 20:33 Blood Pressure 102/60 07/31/25 22:33 Pulse Oximetry 95 07/31/25 22:33 Oxygen Delivery Method Room Air 07/31/25 20:33 MDM - SOB/Dyspnea MDM Narrative Medical decision making narrative: Casey is a 55 yo male has a past medical history of hypertension, diabetes who presents to the ED from home by EMS for evaluation of SOB. Upon arrival patient is nontoxic appearing, afebrile, in distress. Patient hemodynamically stable and vital signs within normal limits. Patient with no tachycardia, no tachypnea, no respiratory distress and oxygen is 98% on room air. Differential diagnosis includes but is not limited to obstructive sleep apnea versus COPD versus CHF versus pleural effusion versus pneumonia versus pneumothorax versus PE versus ACS among others. Upon arrival EKG, comprehensive labs, and chest x-ray performed. I reviewed EKG which demonstrates sinus rhythm with normal axis, ventricular rate of 88 beats per minute, QTC 428, no acute ischemic change. no significant change when compared to prior EKG. Comprehensive labs remarkable for mild leukocytosis with white blood cell count of 13.4, hemoglobin 13.9, sodium 133, no other acute metabolic or electrolyte abnormality, glucose 161, negative troponin less than 0.01, BNP less than 20 (less likely heart failure), negative D-dimer less than 0.27 (low suspicious for PE). I personally reviewed interpreted chest x-ray which is unremarkable with no cardiomegaly, no focal infiltrate, pleural effusion, pneumothorax. Overall patient's ED workup is unremarkable, EKG and troponin within normal limits/unchanged low concerns for ACS, no evidence of acute infection, pneumothorax, pleural effusion, low suspicious for CHF/PE. Patient remains hemodynamically stable, no respiratory distress, no hypoxia. I discussed results with patient, symptoms could definitely be related to sleep apnea. Recommend close outpatient follow-up with his primary care provider as well as outpatient sleep study for further evaluation and possible needing a CPAP machine at bedtime. Strict return precautions discussed. Patient understands and agrees with the plan. Medical Records Attestation: I reviewed the patient's medical records. Lab Data Attestation: I reviewed the patient's lab results. Labs: Lab Results 07/31/25 07/31/25 Range/Units 21:07 21:40 WBC 13.49 H (4.50-11.00) K/uL RBC 4.89 (4.30-5.90) m/uL Hgb 13.9 (13.5-17.5) gm/dL Hct 41.2 (37.0-53.0) % MCV 84 (80-100) fL MCH 28 (26-34) pg MCHC 34 (32-36) gm/dL RDW Coeff of Emma 12.6 (11.5-15.5) % Plt Count 322 (140-440) K/uL Neut % (Auto) 64.6 (42.0-72.0) % Lymph % (Auto) 20.8 (20-44) % [place] % (Auto) 7.1 (0.0-11.0) % Eos % (Auto) 6.7 (0.0-7.0) % Baso % (Auto) 0.4 (0.0-3.0) % Neut # (Auto) 8.70 H (1.7-7.0) K/uL Lymph # (Auto) 2.80 (0.90-2.90) K/uL [place] # (Auto) 1.00 H (0.00-0.90) K/UL Eos # (Auto) 0.90 H (0.00-0.50) K/uL Baso # (Auto) 0.10 (0.00-0.30) K/uL Abs Immat Gran (auto) 0.10 (0.00-0.30) K/uL Imm/Tot Granulo (auto) 0.4 % D-Dimer Quant (PE/DVT) < 0.27 (0.00-0.50) ug/ml Sodium 133 L (135-149) mmol/L Potassium 4.1 (3.6-5.1) mmol/L Chloride 96 (96-114) mmol/L Carbon Dioxide 22 (20-32) mmol/L Anion Gap 15 (7-15) mEq/L BUN 18 (7-30) mg/dL Creatinine 1.1 (0.5-1.5) mg/dL Estimated Creat Clear 80.19 Estimated GFR 80 ml/min Glucose 161 H (60-115) mg/dL Calcium 9.0 (8.4-10.6) mg/dL Total Bilirubin 0.4 (0.1-1.5) mg/dL AST 27 (12-35) U/L ALT 36 (4-50) U/L Alkaline Phosphatase 109 (40-150) U/L Troponin I < 0.01 (0.01-0.04) ng/mL NT-Pro-B Natriuret Pep < 20 (See Note) pg/mL Total Protein 7.0 (6.0-8.3) g/dL Albumin 4.3 (3.3-5.0) g/dL Urine Color Yellow (Yellow) Urine Appearance Clear (Clear) Urine pH 5.5 (5.0-8.5) Ur Specific [place] >= 1.030 (1.000-1.030) Urine Protein 1+ A (Negative) Urine Glucose (UA) Negative (Negative) Urine Ketones Negative (Negative) Urine Blood Negative (Negative) Urine Nitrite Negative (Negative) Urine Bilirubin Negative (Negative) Urine Urobilinogen 0.2 (0.2-1.0) Ur Leukocyte Esterase Trace A (Negative) Urine RBC 0-2 (0-2) Urine WBC 2-5 (0-5) Ur Squamous Epith Cells Few (None-Few) Urine Bacteria Few A (None) Imaging Data Chest x-ray: Attestation: I have reviewed the pertinent imaging results. Radiologist's impression: INDICATION: Shortness of breath. TECHNIQUE: Chest 2 views. COMPARISON: 04/05/2025. FINDINGS: Cardiovascular and mediastinum: Cardiomediastinal silhouette is within normal limits. Lungs and pleural spaces: Lungs are clear. No sign of infiltrate or mass. No sign of pleural effusion. No pneumothorax. Bones and soft tissues: No significant findings. IMPRESSION: No acute findings and no significant changes from the prior exam. Discharge Plan Discharge Clinical Impression: Shortness of breath, Inability to sleep Patient Disposition: Home, Self-Care Condition: Stable Additional Instructions: Please follow-up with your primary care provider in the next 3-5 days for further evaluation follow-up care. Recommend close outpatient follow-up with your primary care provider as well as obtaining a sleep study for further evaluation. Please continue on medications. Please return to the emergency department if you develop any worsening symptoms. It was a pleasure taking care of you today. We hope you feel better soon. Prescriptions: No Action ondansetron 4 mg tablet,disintegrating PO metformin 500 mg tablet 500 mg PO DAILY Qty: 10 2RF omeprazole 40 mg capsule,delayed release(DR/EC) 40 mg PO DAILY Qty: 30 3RF clotrimazole 1 % cream 1 applic topical BID 14 Days Qty: 30 0RF Follow Up/Referrals: Provider,Not a Local [Primary Care Provider, Family Practice] Stand Alone Forms: [employer] Info Instructions
--- NOTE | 2025-07-31 20:46 | ED.NURSE ---
Patient denies shortness of breath currently. He is satting 98% on room air. No other complaints at this time.
--- NOTE | 2025-07-31 20:59 | CRLHL7_ITS ---
For Patients: As a result of the Cures Act, medical imaging exams and procedure reports are released immediately into your electronic medical record. You may view this report before your referring provider. If you have questions, please contact your health care provider. INDICATION: Shortness of breath. TECHNIQUE: Chest 2 views. COMPARISON: 04/05/2025. FINDINGS: Cardiovascular and mediastinum: Cardiomediastinal silhouette is within normal limits. Lungs and pleural spaces: Lungs are clear. No sign of infiltrate or mass. No sign of pleural effusion. No pneumothorax. Bones and soft tissues: No significant findings. IMPRESSION: No acute findings and no significant changes from the prior exam. Dictated by Abilio Rausch MD @ 07/31/2025 9:52:51 PM (Electronically Signed)
[2025-07-31 21:15] LABS: Hematocrit* 41.2 % (37.0-53.0); Hemoglobin* 13.9 gm/dL (13.5-17.5); Immature Granulocytes Pct Auto 0.4 %; Mean Corpuscular HGB Conc 34 gm/dL (32-36); Mean Corpuscular Hemoglobin 28 pg (26-34); Mean Corpuscular Volume 84 fL (80-100); RDW Coefficient of Variation % 12.6 % (11.5-15.5); Red Blood Count* 4.89 m/uL (4.30-5.90); White Blood Count* 13.49 K/uL (4.50-11.00)
[2025-07-31 21:26] LABS: Immature Granulocytes Abs Auto 0.10 K/uL (0.00-0.30); Lymphocytes Absolute Auto 2.80 K/uL (0.90-2.90); Slide Review Reflex No
[2025-07-31 21:36] LABS: Albumin* 4.3 g/dL (3.3-5.0); Chloride* 96 mmol/L (96-114); Potassium* 4.1 mmol/L (3.6-5.1); Sodium* 133 mmol/L (135-149)
[2025-07-31 21:39] LABS: Alanine Aminotransferase* 36 U/L (4-50); Alkaline Phosphatase* 109 U/L (40-150); Anion Gap 15 mEq/L (7-15); Aspartate Amino Transferase* 27 U/L (12-35); Bilirubin Total* 0.4 mg/dL (0.1-1.5); Blood Urea Nitrogen* 18 mg/dL (7-30); Calcium* 9.0 mg/dL (8.4-10.6); Carbon Dioxide* 22 mmol/L (20-32); Creatinine* 1.1 mg/dL (0.5-1.5); Est. Creatinine Clearance* 80.19; Estimated Glomerular Filt Rate 80 ml/min; Glucose* 161 mg/dL (60-115); Total Protein* 7.0 g/dL (6.0-8.3)
[2025-07-31 21:53] LABS: Appearance Urine Clear (Clear)
[2025-07-31 22:20] LABS: D Dimer Quantitative* < 0.27 ug/ml (0.00-0.50)
[2025-07-31 22:21] LABS: NT Pro B Type NatriureticPept* < 20 pg/mL (See Note)
[2025-07-31 22:33] VITALS: BP 102/60; PULSE 80; O2SAT 95
--- NOTE | 2025-07-31 22:34 | ED.NURSE ---
Patient resting in room, sleeping on left side. Deniespain and shortness of breath.
== END 2025-07-31 22:44 | disposition home or self-care (01) ==
PROVIDERS: Emergency Provider Emergency Medicine
DX: R06.02 Shortness of breath (principal); G47.00 Insomnia, unspecified
CPT/HCPCS: 36415; 71046; 80053; 81001; 81003; 83880; 84484; 85025; 85379; 87086; 93005; 99284; 99285